=== PATIENT | female | born 1975 | race Caucasian/White ===

== ENCOUNTER 2021-02-02 14:22 | Emergency (ER) | payer MEDICARE, MEDICAID, SELFPAY ==
--- NOTE | ~2021-02-02 | CT_ITS ---
EXAMINATION: CT ABDOMEN AND PELVIS WITH CONTRAST CLINICAL INFORMATION: Abdominal pain COMPARISON: 02/12/2010 TECHNIQUE: Multidetector volumetric images were obtained from the superior aspect of the liver through the pubic symphysis following administration 85 mL of Omnipaque 350 intravenous contrast. Sagittal and coronal reformatted images were obtained on the technologist's workstation. Oral contrast: No This CT examination was performed using dose optimization techniques as appropriate, variously including the following: *Automated exposure control *Adjustment of mA and/or kV according to patient size (this includes techniques or standardized protocols for targeted exams where dose is matched to indication/reason for exam; i.e. extremities or head) *Use of iterative reconstruction technique DLP: 681 mGy-cm FINDINGS: LUNG BASES: The visualized lung bases are unremarkable. LIVER, GALLBLADDER, AND BILIARY TREE: Liver is decreased attenuation. Enlarged. This may be consistent with fatty change or hepatitis. Some likely focal fatty sparing around the lorie gallbladder region. The gallbladder is unremarkable with no evidence of radiopaque gallstones, gallbladder wall thickening, or obvious pericholecystic inflammatory changes. Some prominence of the common duct but this is also case previously. Mildly increased from previous. Mildly prominent pancreatic duct PANCREAS: Again mildly prominent pancreatic duct caliber. SPLEEN: Unremarkable. ADRENAL GLANDS: Unremarkable. KIDNEYS AND URETERS: The kidneys are normal in size, shape, and attenuation. No hydronephrosis, hydroureter, or calculi seen. No perinephric stranding. BLADDER: Unremarkable. GASTROINTESTINAL TRACT: The small and large bowel are unremarkable. The appendix is unremarkable. ABDOMINAL WALL: No significant hernia is appreciated. LYMPH NODES: Normal. VASCULAR: Unremarkable. PELVIC VISCERA: Unremarkable. OSSEOUS STRUCTURES: Unremarkable. CT/CT abdomen pelvis w con IMPRESSION: Enlarged low attenuation liver may be fatty change versus hepatitis. Some likely focal fatty sparing is noted in the portal and gallbladder region. The bowel pattern is nonobstructing. There is no free fluid. Once again some prominence of the common and pancreatic ducts are seen.
[2021-02-02 14:28] VITALS: BP 119/78; PULSE 96; RESP 18; TEMP 36.2; O2SAT 98; BMI 33.2
--- NOTE | 2021-02-02 16:35 | ED_ITS ---
HPI - Abdominal Pain General Chief Complaint: Abdominal Pain Stated Complaint: swollen abdomen Time Seen by Provider: 02/02/21 16:30 Source: patient Limitations: no limitations History of Present Illness HPI narrative: 45-year-old female with history of opiate abuse on methadone anxiety on 3 other medications for anxiety. Presents emergency department stating that her abdomen has been on and off distended for several years. She states she was admitted [place] several years ago for the abdominal distension she denies cough fever chest pain change any falls or injury states she has no belly pain at this time states this morning her abdomen is very distended and has since gone down. MD elicited complaint: abdominal pain Related Data Allergies Allergy/AdvReac Type Severity Reaction Status Date / Time sulfamethoxazole Allergy Severe HIVES Unverified 01/20/20 15:08 [From BACTRIM] trimethoprim [From BACTRIM] Allergy Severe HIVES Unverified 01/20/20 15:08 bee pollen [BEE STINGS] Allergy Unknown UNKNOWN Unverified 01/20/20 15:08 NSAIDS (Non-Steroidal Allergy Unknown BLEEDING Unverified 01/20/20 15:08 Anti-Inflamma ULCERS [NSAIDS (NON-STEROIDAL ANTI-INFLAMMA] Review of Systems Review of Systems Review of systems: General: Patient denies any fever chills recent illness or falls Musculoskeletal: Denies back pain or body aches or other injuries HEENT: denies headache, runny nose, ear pain Respiratory: denies shortness of breath, cough Cardiovascular: no chest pain or palpitations : denies dysuria, frequency Abdomen: no nausea vomiting denies abdominal pain Extremities: no swelling, no pain Skin: no diaphoresis Yes all other systems are reviewed and are negative Physical Exam Vital Signs: Vital Signs: Last Vital Signs Temp 98.1 F 02/02/21 19:10 Pulse 73 02/02/21 19:10 Resp 16 02/02/21 19:10 BP 115/76 02/02/21 19:10 Pulse Ox 96 02/02/21 19:10 Body Mass Index 33.2 General: Well-appearing well-nourished in no signs of distress HEENT: Normocephalic atraumatic Neck: No signs of JVD, no masses no tenderness or lymphadenopathy Cardiovascular: Regular rate and rhythm Respiratory: Clear to auscultation bilaterally Abdomen: Soft nontender no masses mild distension no signs of ascites Extremities: Normal pedal pulses no signs of edema Skin: Dry warm no rashes Back: No tenderness full ROM MDM - Abdominal Pain MDM Narrative Medical decision making narrative: 45-year-old female with history of anxiety presents complaining of abdominal distention for the past month her belly is nontender on exam but it is distended outpatient for CT scan to make sure there is no acute disease process she is in no pain at this time so I will give patient fluids will check CBC BMP LFTs and lipase and reassessed. Mild elevation in LFT's ast and alt and alk phos. Glucose also elevated patient denies having diabetes. Will need close follow up no signs of DKA at this time. 1940 patient will be sent home on metformin patient educated on lab results and need follow-up with GI will give her referral. Patient has no reason for admission CT scan appears stable Lab Data Result diagrams: 02/02/21 17:41 02/02/21 17:41 Labs: Lab Results 02/02/21 02/02/21 Range/Units 17:41 17:41 WBC 12.0 H (4.8-10.8) X10*3/uL RBC 5.04 (4.20-5.50) X10*6/uL Hgb 15.3 (12.0-16.0) g/dl Hct 45.1 (37-47) % MCV 89.5 (80-98) fL MCH 30.4 (27.0-33.0) pg MCHC 33.9 (31.0-35.0) g/dl RDW 13.3 (11.0-16.0) % Plt Count 332 (160-400) X10*3/uL MPV 9.7 (9.4-12.3) fL Immature Gran % (Auto) 0.5 H (0.0-0.4) % Neut % (Auto) 60.7 (45-73) % Lymph % (Auto) 31.4 (20-40) % [place] % (Auto) 4.3 (2-11) % Eos % (Auto) 2.7 (0-4) % Baso % (Auto) 0.4 (0-2) % Lymph # (Auto) 3.8 (1.2-4.9) X10*3/uL [place] # (Auto) 0.5 (0.1-1.2) X10*3/uL Eos # (Auto) 0.3 (0.0-0.4) X10*3/uL Baso # (Auto) 0.1 (0.0-0.2) X10*3/uL Abs Immat Gran (auto) 0.06 H (0.00-0.03) X10*3/uL Absolute Neuts (auto) 7.3 (2.0-8.3) X10*3/uL Absolute Nucleated RBC 0.000 (0.0-0.012) X10*3/uL Nucleated RBC % (auto) 0.0 (0.0-0.2) /100WBC Sodium 135 (135-145) mmol/L Potassium 4.3 (3.3-5.1) mmol/L Chloride 100 (96-108) mmol/L Carbon Dioxide 28 (22-29) mmol/L Anion Gap 11 L (12-20) BUN 9 (9-16) mg/dL Creatinine 0.67 (0.5-1.4) mg/dL Estim Creat Clear Calc 99.4 Estimated GFR > 60 Random Glucose 282 H (60-115) mg/dL Calcium 9.6 (8.4-10.2) mg/dL Total Bilirubin 0.3 (0.0-1.0) mg/dL Direct Bilirubin < 0.2 (0.0-0.5) mg/dL AST 77 H (5-31) U/L ALT 109 H (0-31) U/L Alkaline Phosphatase 187 H (39-117) U/L Total Protein 7.0 (6.5-8.0) g/dL Albumin 4.1 (3.5-5.0) g/dL Lipase 19 (8-78) U/L Discharge Plan Discharge Clinical Impression: Abdominal bloating Patient Disposition: Home, Self-Care Instructions: Gas and Bloating (ED) Additional Instructions: Please call follow with her doctor if you have any other concerns please do not hesitate to come back to emergency department. Referrals: Clarence Johnson [Physician] - 2 days (Please call the doctor if you have any other concerns please do not hesitate to come back to emergency department.) [facility] Social History Social History Advance Directives: No Advance Directives Information Provided: Yes
[2021-02-02 17:44] LABS: MANUAL DIFF FLAG NO
[2021-02-02 17:48] LABS: Basophils Absolute Auto 0.1 X10*3/uL (0.0-0.2); Basophils Percent Auto 0.4 % (0-2); Eosinophils Absolute Auto 0.3 X10*3/uL (0.0-0.4); Eosinophils Percent Auto 2.7 % (0-4); Hematocrit 45.1 % (37-47); Hemoglobin 15.3 g/dl (12.0-16.0); Imm Gran Abs Auto 0.06 X10*3/uL (0.00-0.03); Imm Gran Pct Auto 0.5 % (0.0-0.4); Lymphocytes Absolute Auto 3.8 X10*3/uL (1.2-4.9); Lymphocytes Percent Auto 31.4 % (20-40); Mean Corpuscular HGB Conc 33.9 g/dl (31.0-35.0); Mean Corpuscular Hemoglobin 30.4 pg (27.0-33.0); Mean Corpuscular Volume 89.5 fL (80-98); Mean Platelet Volume 9.7 fL (9.4-12.3); Monocytes Absolute Auto 0.5 X10*3/uL (0.1-1.2); Monocytes Percent Auto 4.3 % (2-11); Neutrophils Absolute Auto 7.3 X10*3/uL (2.0-8.3); Neutrophils Percent Auto 60.7 % (45-73); Platelet Count 332 X10*3/uL (160-400); Red Blood Count 5.04 X10*6/uL (4.20-5.50); Red Cell Distribution Width 13.3 % (11.0-16.0)
[2021-02-02 18:05] LABS: Alanine Aminotransferase 109 U/L (0-31); Albumin Level 4.1 g/dL (3.5-5.0); Alkaline Phosphatase 187 U/L (39-117); Anion Gap 11 (12-20); Aspartate Amino Transferase 77 U/L (5-31); Bilirubin Direct < 0.2 mg/dL (0.0-0.5); Bilirubin Total 0.3 mg/dL (0.0-1.0); Blood Urea Nitrogen 9 mg/dL (9-16); Calcium 9.6 mg/dL (8.4-10.2); Carbon Dioxide 28 mmol/L (22-29); Chloride 100 mmol/L (96-108); Creatinine Clr Calc Pharmacy 99.4; Estimated Glomerular Filt Rate > 60; Glucose Random 282 mg/dL (60-115); Lipase 19 U/L (8-78); Potassium 4.3 mmol/L (3.3-5.1); Sodium 135 mmol/L (135-145)
[2021-02-02] MEDS: 0.9 % Sodium Chloride 500 ML 999 ML IV (18:24)
[2021-02-02] MEDS: iohexoL 350 MG/ML 100 ML INFUS..BTL IV (18:46)
[2021-02-02 19:10] VITALS: BP 115/76; PULSE 73; RESP 16; TEMP 36.7; O2SAT 96
== END 2021-02-02 20:14 | disposition home or self-care (01) ==
PROVIDERS: Emergency Provider Student in an Organized Health Care Education/Training Program
DX: R19.00 Intra-abdominal and pelvic swelling, mass and lump, unspecified site (principal); R10.9 Unspecified abdominal pain; F11.10 Opioid abuse, uncomplicated; Z79.899 Other long term (current) drug therapy
CPT/HCPCS: 36415; 74177; 80048; 80076; 83690; 85025; 99283; 99284; Q9967

== ENCOUNTER 2021-07-16 16:09 | Outpatient (REF) | payer MEDICARE, MEDICAID, SELFPAY ==
--- NOTE | ~2021-07-16 | XR_ITS ---
EXAMINATION: XR SINUSES CLINICAL INFORMATION: Chronic sinusitis COMPARISON: None TECHNIQUE: 3 views of the sinuses were obtained. FINDINGS: Paranasal sinuses appear clear without air-fluid levels. No fractures are identified. No radiodense foreign bodies. XR/XR sinus min 3V IMPRESSION: Unremarkable examination.
== END 2021-07-16 16:10 | disposition home or self-care (01) ==
LOC: HO.XRAY 16:09
PROVIDERS: PCP Internal Medicine; Visit Provider Internal Medicine
DX: J32.9 Chronic sinusitis, unspecified (principal)
CPT/HCPCS: 70220

== ENCOUNTER 2023-06-24 14:08 | Emergency (ER) | payer OTHER, SELFPAY ==
[2023-06-24] VITALS (7 sets, daily range): BP systolic 91–141; BP diastolic 46–112; PULSE 72–105; RESP 16–18; TEMP 36.6–36.7; O2SAT 94–103; BMI 27.4
--- NOTE | ~2023-06-24 | CT_ITS ---
EXAMINATION: CT HEAD WITHOUT CONTRAST CLINICAL INFORMATION: Seizure. Headache. COMPARISON: None available. TECHNIQUE: Contiguous axial imaging was performed from the skull base to vertex without intravenous administration of contrast. This CT examination was performed using dose optimization techniques as appropriate, variously including the following: *Automated exposure control. *Adjustment of mA and/or kV according to patient size (this includes techniques or standardized protocols for targeted exams where dose is matched to indication/reason for exam; i.e. extremities or head). *Use of iterative reconstruction technique. DLP: 625 mGy-cm FINDINGS: There is no evidence of acute intracranial hemorrhage or edematous territorial infarction. Sanches-white matter differentiation is preserved. There is no abnormal attenuation within the brain parenchyma. The ventricles are normal in morphology and size. No evidence for obstructive hydrocephalus. The suprasellar cistern remains widely patent. The cerebellar tonsils are normally positioned. No abnormal mass effect or midline shift. No extra-axial fluid collections. No acute soft tissue or osseous abnormalities. Mild mucosal thickening of the paranasal sinuses. The mastoid air cells and middle ear cavities are clear. CT/CT head/brain wo IV con IMPRESSION: No evidence of acute intracranial hemorrhage or edematous territorial infarction. No demonstrated abnormal mass effect on the noncontrast evaluation.
--- NOTE | 2023-06-24 14:28 | ECG_ITS ---
Test Reason : TREMORS Blood Pressure : / mmHG Vent. Rate : 082 BPM Atrial Rate : 082 BPM P-R Int : 156 ms QRS Dur : 092 ms QT Int : 370 ms P-R-T Axes : 043 -38 030 degrees QTc Int : 432 ms Normal sinus rhythm Left axis deviation Septal infarct (cited on or before 08-JAN-2019) Abnormal ECG When compared with ECG of 08-JAN-2019 11:56, No significant change was found Referred By: Elzbieta Everett Electronically Signed By:DAWIT WILSON MD
--- NOTE | 2023-06-24 14:52 | PC.NURSE ---
pt presents to ED via EMS from court room. per pt she had seizure-like activity at court room, remembers all events, describes as shaking all over but no LOC. pt reports this episode lasted 1-2 mins, pt has hx of these episodes with no formal diagnosis or meds. pt is diabetic, was given sugar-y drink because they thought her sugar was low. pt is alert and oriented, breathing even and unlabored, skin WNL. pt denies pain or SOB. pt reports feeling flu-like symptoms X2 days, cough and general malaise. pt resting in bed, vss. provider at bedside at this time.
[2023-06-24 15:07] LABS: Glucose, Whole Blood 364 mg/dL (60-115)
--- NOTE | 2023-06-24 15:12 | ED.GENADULT ---
HPI - General Adult General Chief complaint: General Medical Stated complaint: HAD TREMOR IN COURT/?SZ,HIGH BS 453 PER EMS Time Seen by Provider: 06/24/23 14:27 Source: patient and RN notes reviewed Mode of arrival: ambulatory Limitations: no limitations History of Present Illness HPI narrative: This is a 48-year-old female, with a history of uncontrolled diabetes on insulin, presenting to the emergency department for evaluation of episode of ? Tremors while in a court room this afternoon. Patient reports that she is under a significant amount of stress now that she is currently dealing with a lawsuit. She states that while awaiting for the case to begin, she suddenly felt shaking in her upper and lower extremities as well as head. She states that this lasted for approximately 1 minute. She states that she was fully conscious during this episode. She denies hitting her head or loss of consciousness. She states that she has had a history of undiagnosed seizures, however states that she typically loses consciousness which she reports she did not lose consciousness today. She also admits that her diabetes has not been well controlled despite being on insulin, she has an appointment with her primary care physician in several days to adjust medications and discuss further workup. She denies any alcohol use or drug use. She is a smoker. She currently feels okay, reports some slight lightheadedness and headache, otherwise denies any chest pain, shortness of breath, abdominal pain, nausea, vomiting or diarrhea. No other complaints or concerns at this time. MD complaint: seizure like activity Onset (ago): hour(s) Radiation: non-radiation Relieving factors: none Exacerbating factors: none Associated symptoms: denies other symptoms Treatments prior to arrival: none Related Data Allergies Allergy/AdvReac Type Severity Reaction Status Date / Time sulfamethoxazole Allergy Severe HIVES Verified 06/24/23 16:05 [From BACTRIM] trimethoprim [From BACTRIM] Allergy Severe HIVES Verified 06/24/23 16:05 bee pollen [BEE STINGS] Allergy Unknown UNKNOWN Verified 06/24/23 16:05 NSAIDS (Non-Steroidal Allergy Unknown BLEEDING Verified 06/24/23 16:05 Anti-Inflamma ULCERS [NSAIDS (NON-STEROIDAL ANTI-INFLAMMA] Review of Systems Review of Systems: Yes all other systems are reviewed and are negative Constitutional: Constitutional: Reports as per HPI [facility] Social History Social History Smoked in Last 30 Days: Yes Use of substances other than those prescribed or required for medical reasons: No Advance Directives: No Advance Directives Information Provided: No Physical Exam ED Vital Signs: Vital Signs - 24 hr 06/24/23 14:43 06/24/23 14:48 06/24/23 15:58 Temperature 98.1 F 98.1 F 97.8 F Pulse Rate 105 H 104 H 81 Respiratory Rate 18 18 16 Blood Pressure 128/87 128/87 97/66 Pulse Oximetry 95 95 94 Oxygen Delivery Method Room Air Room Air Room Air 06/24/23 16:01 06/24/23 16:03 06/24/23 16:03 Temperature Pulse Rate 72 84 91 Respiratory Rate Blood Pressure 106/66 105/57 L 112/72 Pulse Oximetry Oxygen Delivery Method 06/24/23 18:30 06/24/23 19:38 Temperature Pulse Rate 76 92 Respiratory Rate 16 17 Blood Pressure 91/46 L 114/77 Pulse Oximetry 94 94 Oxygen Delivery Method Room Air Room Air BMI result Body Mass Index 27.4 Const General: cooperative, comfortable and no acute distress Orientation/consciousness: patient oriented x3 Limitations: no limitations HENMT Head: Yes normal to inspection, Yes normocephalic and Yes atraumatic Ears: hearing grossly normal bilaterally General nose exam: Normal external nose present Face and sinus: Yes normal facial exam Mouth: Normal oral and palatal mucosa present, oropharynx normal and moist mucous membranes Throat: Yes posterior oropharynx normal Eyes General: appearance normal, both eyes and all related structures Eyelids: Yes eyelids normal Conjunctivae: conjunctivae normal Sclerae: sclerae normal Pupils: Equal, round and reactive pupils present EOM: EOMs intact bilaterally Neck Neck: Yes normal visual inspection, Yes full ROM and Yes no lymphadenopathy Lymphatic: no lymphadenopathy noted Chest Chest palpation & inspection: normal inspection of the chest Resp Effort & Inspection: normal respiratory effort and able to speak in complete sentences Auscultation: clear to auscultation bilaterally, no crackles, no rales, no rhonchi and no wheezes Cardio Rate: regular rate Rhythm: regular rhythm Heart sounds: S1 normal heart sound present and S2 normal heart sound present GI Inspection: Yes normal to inspection Skin General skin exam: no rashes or lesions noted Trauma: no lacerations or abrasions Wounds: no wounds Neuro General: patient oriented x3 and moves all extremities Cranial nerves: Yes CN's II-XII intact bilaterally and Yes Equal, round and reactive pupils present Cognition (Neuro): normal cognition Motor exam (neuro): 5/5 motor strength present throughout and Pronator motor function not present Romberg Test: Negative Extrem General: Yes normal to inspection Right upper extremity: normal to inspection Left upper extremity: normal to inspection Right lower extremity: normal to inspection Left lower extremity: normal to inspection Course Reevaluation(s) Reevaluation #1: No leukocytosis, platelet count 20, glucose hyperglycemic at [id number], she has received IV fluids. Slight elevation in alk-phos, troponin less than 0.7,, she had no chest pain, therefore repeat not indicated. . Negative . Urine areas not infected and she is asymptomatic therefore will not treat for urinary tract infection. She did positive for opiates, fentanyl, amphetamines, ankle pain,, negative for flu RSV and COVID. EKG normal sinus rhythm at a ventricular rate of 82 beats per minute,, QTC 432, similar from previous. Time: 17:51 Reevaluation #2: Patient feeling much better better. Given sign-out my colleague, Rob Mills, IFRAH pending CT head, POC glucose, repeat trop. Time: 18:04 Reevaluation #3: Delta troponin is negative. After IV fluids remained hyperglycemic, received insulin lispro 10 units subcutaneous and repeat glucose 247. CT head without acute intracranial pathology. At this time stable for discharge, outpatient follow-up with PCP. CT/CT head/brain wo IV con IMPRESSION: No evidence of acute intracranial hemorrhage or edematous territorial infarction. No demonstrated abnormal mass effect on the noncontrast evaluation. Medications Administered Discontinued Medications Generic Name Dose Route Start Last Admin Trade Name Freq PRN Reason Stop Dose Admin Sodium Chloride 1,000 mls @ 999 mls/hr 06/24/23 16:38 06/24/23 18:29 Ns IV 06/24/23 17:38 Infused .Q1H1M ONE Infusion Insulin Human Lispro 10 unit 06/24/23 19:58 06/24/23 20:30 Insulin Lispro 100 Unit/Ml 3 Ml Vial SUBCUT 06/24/23 19:59 10 unit ONCE ONE Administration Medical Decision Making Medical Decision Making MDM Narrative: This is a 48-year-old female, with a past medical history of uncontrolled diabetes, presenting to the emergency department for evaluation of ?seizure-like activity. Patient reports that while she was in court today she felt tremulous and increased anxiety which lasted for about 1 minute. She denies loss of consciousness. On arrival, patient is neurologically intact. She reports slight headache and slight dizziness, however is feeling much better since her arrival. Point of care 364 which patient states is low for her. She states that she has not had a easy time managing her diabetes, she is seeing her primary care physician in 2 days. She denies any chest pain, shortness of breath, abdominal pain, nausea, vomiting or diarrhea. Plan: Labs, EKG, orthostatic vital signs, CT head Differential Diagnosis Differential Diagnoses: The differential diagnosis associated with the presentation includes ICH, intracranial mass, seizure, electrolyte abnormality, anxiety Admission/Observation Consideration of admission/observation: Escalation of care including admission/observation considered Lab Data MDM Lab Attestation statement: I reviewed the patient's lab results. 06/24/23 15:48 06/24/23 15:48 Labs: Lab Results 06/24/23 06/24/23 06/24/23 Range/Units 14:58 15:48 18:39 WBC 11.6 H (4.8-10.8) X10*3/uL RBC 4.73 (4.20-5.50) X10*6/uL Hgb 14.3 (12.0-16.0) g/dl Hct 41.7 (37.0-47.0) % MCV 88.2 (80.0-98.0) fL MCH 30.2 (27.0-33.0) pg MCHC 34.3 (31.0-35.0) g/dl RDW 12.5 (11.0-16.0) % Plt Count 420 H (160-400) X10*3/uL MPV 9.5 (9.4-12.3) fL Immature Gran % (Auto) 0.3 (0.0-0.4) % Neut % (Auto) 53.8 (45-73) % Lymph % (Auto) 38.1 (20-40) % [place] % (Auto) 5.5 (2-11) % Eos % (Auto) 1.9 (0-4) % Baso % (Auto) 0.4 (0-2) % Lymph # (Auto) 4.4 (1.2-4.9) X10*3/uL [place] # (Auto) 0.6 (0.1-1.2) X10*3/uL Eos # (Auto) 0.2 (0.0-0.4) X10*3/uL Baso # (Auto) 0.1 (0.0-0.2) X10*3/uL Abs Immat Gran (auto) 0.03 (0.00-0.03) X10*3/uL Absolute Neuts (auto) 6.2 (2.0-8.3) x10*3/uL Absolute Nucleated RBC 0.000 (0.0-0.012) X10*3/uL Nucleated RBC % (auto) 0.0 (0.0-0.2) /100WBC Smear Tech's Comments VERIFIED Sodium 135 (135-145) mmol/L Potassium 4.2 (3.3-5.1) mmol/L Chloride 99 (96-108) mmol/L Carbon Dioxide 28 (22-29) mmol/L Anion Gap 12 (12-20) BUN 14 (9-16) mg/dL Creatinine 0.71 (0.5-1.4) mg/dL Estim Creat Clear Calc 96.6 Estimated GFR > 60 POC Glucose 364 H* (60-115) mg/dL Random Glucose 371 H* (60-115) mg/dL Lactic Acid 1.4 (0.5-2.0) mmol/L Calcium 8.9 D (8.4-10.2) mg/dL Magnesium 1.9 (1.6-2.6) mg/dL Total Bilirubin 0.2 (0.0-1.0) mg/dL Direct Bilirubin < 0.2 (0.0-0.5) mg/dL AST 15 (5-31) U/L ALT 30 (0-31) U/L Alkaline Phosphatase 118 H (39-117) U/L Troponin I High Sens < 2.7 < 2.7 (<3.5-17.0) ng/L Total Protein 6.9 (6.5-8.0) g/dL Albumin 3.9 (3.5-5.0) g/dL Lipase 10 (8-78) U/L Beta HCG, Quant < 2 mIU/mL Urine Color Yellow Urine Appearance Clear Urine pH 5.5 (5.0-9.0) Ur Specific [place] >= 1.030 H (1.005-1.025) Urine Protein Negative (Neg-Trace) mg/dL Urine Glucose (UA) >=1000 H (Negative) mg/dL Urine Ketones Negative (Negative) mg/dL Urine Blood Moderate (2+) H (Negative) Urine Nitrite Negative (Negative) Ur Leukocyte Esterase Negative (Negative) Urine RBC 0-2 (0-2) /HPF Urine WBC 0-5 (0-5) /HPF Ur Squamous Epith Cells 3-5 (0-2) /HPF Urine Bacteria Trace (None Seen) Hyaline Casts 0-2 (0-2) /LPF Urine Opiates Screen POSITIVE H (Not Detect) Urine Fentanyl Screen POSITIVE H (Not Detect) Ur Barbiturates Screen Not Detected (Not Detect) Ur Phencyclidine Scrn Not Detected (Not Detect) Ur Amphetamines Screen POSITIVE H (Not Detect) U Benzodiazepines Scrn Not Detected (Not Detect) Urine Cocaine Screen POSITIVE H (Not Detect) U Marijuana (THC) Screen Not Detected (Not Detect) Ethyl Alcohol < 10 mg/dL Influenza Type A (PCR) NEGATIVE (Negative) Influenza Type B (PCR) NEGATIVE (Negative) RSV RNA Qual (PCR) NEGATIVE (Negative) SARS-CoV-2 RNA (RT-PCR) NEGATIVE (Negative) 06/24/23 06/24/23 Range/Units 19:33 21:51 WBC (4.8-10.8) X10*3/uL RBC (4.20-5.50) X10*6/uL Hgb (12.0-16.0) g/dl Hct (37.0-47.0) % MCV (80.0-98.0) fL MCH (27.0-33.0) pg MCHC (31.0-35.0) g/dl RDW (11.0-16.0) % Plt Count (160-400) X10*3/uL MPV (9.4-12.3) fL Immature Gran % (Auto) (0.0-0.4) % Neut % (Auto) (45-73) % Lymph % (Auto) (20-40) % [place] % (Auto) (2-11) % Eos % (Auto) (0-4) % Baso % (Auto) (0-2) % Lymph # (Auto) (1.2-4.9) X10*3/uL [place] # (Auto) (0.1-1.2) X10*3/uL Eos # (Auto) (0.0-0.4) X10*3/uL Baso # (Auto) (0.0-0.2) X10*3/uL Abs Immat Gran (auto) (0.00-0.03) X10*3/uL Absolute Neuts (auto) (2.0-8.3) x10*3/uL Absolute Nucleated RBC (0.0-0.012) X10*3/uL Nucleated RBC % (auto) (0.0-0.2) /100WBC Smear Tech's Comments Sodium (135-145) mmol/L Potassium (3.3-5.1) mmol/L Chloride (96-108) mmol/L Carbon Dioxide (22-29) mmol/L Anion Gap (12-20) BUN (9-16) mg/dL Creatinine (0.5-1.4) mg/dL Estim Creat Clear Calc Estimated GFR POC Glucose 364 H* 257 H (60-115) mg/dL Random Glucose (60-115) mg/dL Lactic Acid (0.5-2.0) mmol/L Calcium (8.4-10.2) mg/dL Magnesium (1.6-2.6) mg/dL Total Bilirubin (0.0-1.0) mg/dL Direct Bilirubin (0.0-0.5) mg/dL AST (5-31) U/L ALT (0-31) U/L Alkaline Phosphatase (39-117) U/L Troponin I High Sens (<3.5-17.0) ng/L Total Protein (6.5-8.0) g/dL Albumin (3.5-5.0) g/dL Lipase (8-78) U/L Beta HCG, Quant mIU/mL Urine Color Urine Appearance Urine pH (5.0-9.0) Ur Specific [place] (1.005-1.025) Urine Protein (Neg-Trace) mg/dL Urine Glucose (UA) (Negative) mg/dL Urine Ketones (Negative) mg/dL Urine Blood (Negative) Urine Nitrite (Negative) Ur Leukocyte Esterase (Negative) Urine RBC (0-2) /HPF Urine WBC (0-5) /HPF Ur Squamous Epith Cells (0-2) /HPF Urine Bacteria (None Seen) Hyaline Casts (0-2) /LPF Urine Opiates Screen (Not Detect) Urine Fentanyl Screen (Not Detect) Ur Barbiturates Screen (Not Detect) Ur Phencyclidine Scrn (Not Detect) Ur Amphetamines Screen (Not Detect) U Benzodiazepines Scrn (Not Detect) Urine Cocaine Screen (Not Detect) U Marijuana (THC) Screen (Not Detect) Ethyl Alcohol mg/dL Influenza Type A (PCR) (Negative) Influenza Type B (PCR) (Negative) RSV RNA Qual (PCR) (Negative) SARS-CoV-2 RNA (RT-PCR) (Negative) Radiology Impression Discussion of test interpretation with radiology: I have reviewed the radiologist's reading. External Record Review External record reviewed: Inpatient record, Office record, Outpatient record, Prior outpatient labs, Prior outpatient radiology, Primary care record and Outside ED record Discharge Plan Discharge Clinical Impression: Anxiety Patient Disposition: Still a Patient Instructions: Panic Disorder (ED), Anxiety (ED) Additional Instructions: You were seen in the emergency department after having an episode of shaking. Your symptoms are likely due to to anxiety. Your labs are reassuring. You have elevated glucose, therefore follow-up with your primary care physician for further management diabetes. Your CT scan of her head was normal. Urine does not infected. Drink plenty of fluids get plenty of rest. If any new or worsening symptoms occur, including chest pain, shortness of breath, please return for re-evaluation.
[2023-06-24 16:04] LABS: Appearance Urine Clear; Color Urine Yellow; Glucose Urine UA >=1000 mg/dL (Negative); Leukocyte Esterase Urine Negative (Negative); Nitrite Urine Negative (Negative); PH 5.5 (5.0-9.0); Specific Gravity - Urine >= 1.030 (1.005-1.025); UMIC TRIGGER UACC YES; Urine Blood Moderate (2+) (Negative); Urine Ketones Negative (Negative); Urine Protein Negative (Neg-Trace)
[2023-06-24 16:09] LABS: Basophils Absolute Auto 0.1 X10*3/uL (0.0-0.2); Basophils Percent Auto 0.4 % (0-2); Eosinophils Absolute Auto 0.2 X10*3/uL (0.0-0.4); Eosinophils Percent Auto 1.9 % (0-4); Hematocrit 41.7 % (37.0-47.0); Hemoglobin 14.3 g/dl (12.0-16.0); Imm Gran Abs Auto 0.03 X10*3/uL (0.00-0.03); Imm Gran Pct Auto 0.3 % (0.0-0.4); Lymphocytes Absolute Auto 4.4 X10*3/uL (1.2-4.9); Lymphocytes Percent Auto 38.1 % (20-40); MANUAL DIFF FLAG SCAN; Mean Corpuscular HGB Conc 34.3 g/dl (31.0-35.0); Mean Corpuscular Hemoglobin 30.2 pg (27.0-33.0); Mean Corpuscular Volume 88.2 fL (80.0-98.0); Mean Platelet Volume 9.5 fL (9.4-12.3); Monocytes Absolute Auto 0.6 X10*3/uL (0.1-1.2); Monocytes Percent Auto 5.5 % (2-11); Neutrophils Absolute Auto 6.2 x10*3/uL (2.0-8.3); Neutrophils Percent Auto 53.8 % (45-73); Platelet Count 420 X10*3/uL (160-400); Red Blood Count 4.73 X10*6/uL (4.20-5.50); Red Cell Distribution Width 12.5 % (11.0-16.0); SCAN SMEAR FLAG 1; White Blood Count 11.6 X10*3/uL (4.8-10.8)
[2023-06-24 16:12] LABS: Bacteria Urine Trace (None Seen); Hyaline Casts Urine 0-2 /LPF (0-2); RBC Urine 0-2 /HPF (0-2); WBC Urine 0-5 /HPF (0-5)
[2023-06-24 16:17] LABS: Lactic Acid 1.4 mmol/L (0.5-2.0)
[2023-06-24 16:21] LABS: Ethanol < 10 mg/dL
[2023-06-24 16:23] LABS: Amphetamine Screen Urine POSITIVE (Not Detect); Barbiturates, Urine Not Detected (Not Detect); Benzodiazepines Screen Urine Not Detected (Not Detect); Cannabinoid Screen Urine Not Detected (Not Detect); Cocaine Screen Urine POSITIVE (Not Detect); Fentanyl, urine POSITIVE (Not Detect); Opiate Screen Urine POSITIVE (Not Detect); Phencyclidine Screen Urine Not Detected (Not Detect)
[2023-06-24 16:32] LABS: Troponin-I High Sensitivity < 2.7 ng/L (<3.5-17.0)
[2023-06-24 16:33] LABS: SLIDE REVIEW VERIFIED
[2023-06-24 16:45] LABS: Influenza A PCR NEGATIVE (Negative); Influenza B PCR NEGATIVE (Negative); Resp Syncy Virus RNA Qual PCR NEGATIVE (Negative); SARS COV2 PCR INHOUSE NEGATIVE (Negative)
[2023-06-24] MEDS: 0.9 % Sodium Chloride 1,000 ML 999 ML IV (16:48)
[2023-06-24 16:51] LABS: Alanine Aminotransferase 30 U/L (0-31); Albumin Level 3.9 g/dL (3.5-5.0); Alkaline Phosphatase 118 U/L (39-117); Anion Gap 12 (12-20); Aspartate Amino Transferase 15 U/L (5-31); Bilirubin Direct < 0.2 mg/dL (0.0-0.5); Bilirubin Total 0.2 mg/dL (0.0-1.0); Blood Urea Nitrogen 14 mg/dL (9-16); Calcium 8.9 mg/dL (8.4-10.2); Carbon Dioxide 28 mmol/L (22-29); Chloride 99 mmol/L (96-108); Creatinine Clr Calc Pharmacy 96.6; Estimated Glomerular Filt Rate > 60; Glucose Random 371 mg/dL (60-115); HCG Quantitative < 2 mIU/mL; Lipase 10 U/L (8-78); Magnesium 1.9 mg/dL (1.6-2.6); Potassium 4.2 mmol/L (3.3-5.1); Sodium 135 mmol/L (135-145); Total Protein 6.9 g/dL (6.5-8.0)
[2023-06-24 19:08] LABS: Troponin-I High Sensitivity < 2.7 ng/L (<3.5-17.0)
[2023-06-24 19:49] LABS: Glucose, Whole Blood 364 mg/dL (60-115)
--- NOTE | 2023-06-24 20:20 | PC.NURSE ---
please call Hilary Horan [facility]- [phone] with any updates.
[2023-06-24] MEDS: Insulin Lispro 100 UNIT/ML 3 ML VIAL 10 UNIT SUBCUT (20:30)
[2023-06-24 21:56] LABS: Glucose, Whole Blood 257 mg/dL (60-115)
--- NOTE | 2023-06-24 22:54 | PC.NURSE ---
this RN went to discharge patient and she was found not to be in the room. per registration pt had left upset about not having a ride. when asked when she left they stated approx 5min ago. pt still had IV line in her arm. this RN notified charger. states she will notify the [place] PD to locate patient.
--- NOTE | 2023-06-24 22:58 | PC.NURSE ---
attempted to call patient; no answer on the phone, unable to leave VM as it is not set up.
--- NOTE | 2023-06-24 23:03 | PC.NURSE ---
meredith pd aware that patient may have left with IV still in and will go to home for a well check .
[2023-06-25 06:32] LABS: Glucose, Whole Blood 360 mg/dL (60-115)
== END 2023-06-24 23:28 | disposition home or self-care (01) ==
PROVIDERS: Physician Assistant Medical; Emergency Provider Emergency Medicine
DX: R56.9 Unspecified convulsions (principal); F41.1 Generalized anxiety disorder; R51.9 Headache, unspecified; R25.1 Tremor, unspecified; R94.31 Abnormal electrocardiogram [ECG] [EKG]; F17.200 Nicotine dependence, unspecified, uncomplicated; Z20.822 Contact with and (suspected) exposure to COVID-19; Z11.52 Encounter for screening for COVID-19; Z79.899 Other long term (current) drug therapy
CPT/HCPCS: 0241U; 36415; 70450; 80048; 80076; 80307; 81001; 81003; 82947; 83605; 83690; 83735; 84484; 84702; 85025; 93005; 96360; 96361; 99284; 99285

== ENCOUNTER → 2023-06-24 14:28 | Outpatient (BNV) | payer OTHER, SELFPAY | PROVIDERS: Emergency Provider Emergency Medicine; Visit Provider Internal Medicine Cardiovascular Disease | DX: R94.31 Abnormal electrocardiogram [ECG] [EKG] (principal) | CPT/HCPCS: 93010 ==

== ENCOUNTER 2024-09-03 15:23 | Emergency (ER) | payer OTHER, SELFPAY ==
[2024-09-03 15:33] VITALS: BP 148/89; PULSE 129; RESP 20; TEMP 37.2; O2SAT 98; BMI 21.7
--- NOTE | 2024-09-03 15:36 | ED_ITS ---
HPI - General Adult General Chief complaint: Skin/Abscess/Foreign Body Stated complaint: cyst on back Time Seen by Provider: 09/03/24 19:19 Source: patient Mode of arrival: ambulatory Limitations: no limitations History of Present Illness ED Provider: Dr. Rula Thompson HPI narrative: Patient comes to the emergency room complaining of an abscess in her upper back. Patient denies fever chills. Patient complaining of drainage from the abscess. Denies any injuries, denies IV drug use. Patient states that she was diagnosed with type 2 diabetes 1 year ago and she has not been taking any of her medications. Patient states that she does not have a primary care physician. Related Data Previous Rx's ?Medication ?Instructions ?Recorded blood sugar diagnostic (Accu-Chek #100 ea 09/03/24 Shwetha Plus test strips) blood-glucose meter (Accu-Chek #1 ea 09/03/24 Guide Glucose Meter) cephalexin 500 mg capsule 500 mg PO Q12H #14 caps 09/03/24 doxycycline hyclate 100 mg capsule 100 mg PO BID #14 caps 09/03/24 insulin lispro 100 unit/mL 1 sliding scale dose subcut 09/03/24 subcutaneous pen (Humalog KwikPen USEASDIRECTD #15 mL (U-100) Insulin) lancets-blood glucose test #1 ea 09/03/24 strips-pen needles with gauze kit pen needle, diabetic 32 gauge x #100 ea 09/03/2432 (Pen Needle) tramadol 50 mg tablet 50 mg PO BID PRN pain #7 tabs 09/03/24 Allergies Allergy/AdvReac Type Severity Reaction Status Date / Time sulfamethoxazole Allergy Severe HIVES Verified 09/03/24 15:37 [From BACTRIM] trimethoprim [From BACTRIM] Allergy Severe HIVES Verified 09/03/24 15:37 bee pollen [BEE STINGS] Allergy Unknown UNKNOWN Verified 09/03/24 15:37 NSAIDS (Non-Steroidal Allergy Unknown BLEEDING Verified 09/03/24 15:37 Anti-Inflamma ULCERS [NSAIDS (NON-STEROIDAL ANTI-INFLAMMA] Review of Systems 2 Review of Systems: Constitutional : No Weight loss, No Fever, No Chills, No Night Sweats, No Fatigue, No Malaise ENT/Mouth : No Hearing loss, No Ear Pain, No Nasal Congestion, No Sinus Pain, No Hoarseness, No sore throat, No Rhinorrhea, No Swallowing Difficulty Eyes: No Eye Pain, No Swelling, No Redness, No Foreign Body, No Discharge, No Vision Changes Cardiovascular : No Chest Pain, No SOB, No Dyspnea on Exertion, No Orthopnea, No Edema, No Palpitations Respiratory : No Cough, No Sputum, No Wheezing, No Smoke Exposure, No Dyspnea Gastrointestinal : No Nausea, No Vomiting, No Diarrhea, No Constipation, No abdominal Pain, No Hematochezia, No Melena Genitourinary : no irregular bleeding, No Dysuria, No Urinary Frequency, No Hematuria, No Urinary Incontinence, No Urgency, No Flank Pain, No Urinary Flow Changes, No Hesitancy Musculoskeletal : No joint pain, No Myalgias, No Joint Swelling Skin : Complaining of an abscess in the upper back Neuro : No Weakness, No Numbness, No Paresthesias, No Loss of Consciousness, No Dizziness, No Headache Psych : No Anxiety/Panic, No Depression, No SI/HI/AH/VH, No Social Issues, Heme/Lymph: No Bruising, No Bleeding,No Lymphadenopathy Endocrine : Complaining of polyuria polydipsia and has not medications for diabetes. [facility] Past Medical History Medical History (Updated 09/03/24 @ 22:36 by Rula Thompson MD) Diabetes Type 2 diabetes mellitus Social History Social History Advance Directives: No Advance Directives Information Provided: Yes Do you have a plan to hurt others: No Plan Physical Exam ED Vital Signs: Vital Signs - 24 hr 09/03/24 15:33 09/03/24 19:55 09/03/24 20:01 Temperature 99 F 98.0 F Pulse Rate 129 H 115 H Respiratory Rate 20 20 20 Blood Pressure 148/89 H 140/99 H Pulse Oximetry 98 99 Oxygen Delivery Method Room Air Room Air 09/03/24 22:03 Temperature 98.4 F Pulse Rate 102 H Respiratory Rate 20 Blood Pressure 147/98 H Pulse Oximetry 98 Oxygen Delivery Method Room Air BMI result Body Mass Index 21.7 Const Other: Appearance: Alert. Oriented X3. No acute distress. Eyes: Pupils equal, round and reactive to light. ENT: Pharynx normal. Neck: Normal inspection. Neck supple. No lymph nodes noted. No crepitus CVS: Normal heart rate and rhythm. Pulses normal. Normal S1 and S2 Respiratory: No respiratory distress. Breath sounds normal. No Wheezing. No rales Abdomen: Soft and nontender. No rigidity. No distention. Skin: Skin warm and dry. Normal skin color. Normal skin turgor. In the upper back, in the middle of the scapulas, there is an abscess, which is open and it is starting to drain. Extremities: No lower extremity edema. No Lacerations. No Rash Neuro: Oriented X 3. No motor deficit. No sensory deficit. Moving all extremities. No slurred speech. CN 2 through 12 grossly intact Psych: calm, cooperative, normal affect Course Course Course Narrative: This is an RME performed by Yakelin Mills, [employer]: Additional HPI, ROS, PE not included below will be deferred to primary provider. Patient is a 49-year-old female who presents emergency department for evaluation of an abscess mid upper back with onset 4 days ago. Started with an itchy area, ultimately has now begun bleeding with pus-like drainage. Endorsing subjective fevers and chills. She has a history of diabetes, has not been on any medications for this in approximately 1 year. She arrives tachycardic pulse in the 130s, she does appear anxious, she is afebrile. Plan: Serum labs, blood cultures and lactic, POC glucose, wound culture. EKG Medications Administered Discontinued Medications Generic Name Dose Route Start Last Admin Trade Name Michaelq PRN Reason Stop Dose Admin Sodium Chloride 1,000 mls @ 999 mls/hr 09/03/24 19:36 09/03/24 21:05 Ns IVCONT 09/03/24 20:36 Infused .Q1H1M ONE Infusion Insulin Human Regular 10 unit 09/03/24 19:36 09/03/24 19:56 Insulin Regular, Human 100 Unit/Ml 10 Ml Vial IVPUSH 09/03/24 19:37 10 unit ONCE ONE Administration Lidocaine HCl 20 ml 09/03/24 19:41 09/03/24 19:56 Lidocaine Hcl 1 % 20 Ml Vial INFILTRATI 09/03/24 19:42 20 ml ONCE ONE Administration Morphine Sulfate 2 mg 09/03/24 19:39 09/03/24 19:55 Morphine Sulfate 2 Mg/Ml Cartridge IVPUSH 09/03/24 19:40 2 mg ONCE ONE Administration Protocol Procedures Abscess I/D Site: back Sedation/analgesia: none Local Anesthetic: lidocaine 1% Amount of anesthesia used (mL): 10 Technique: incised with blade Amount of fluid expressed (mL): 25 Sent for culture/gram staining?: No Irrigation: Yes Packing used?: none Medical Decision Making Medical Decision Making [facility] Narrative: Patient's skin was numbed with 1% lidocaine without epinephrine. An 11 size blade was used to open the skin and drain a large amount of pus, packing was applied. Patient was premedicated with IV morphine and then patient requested a p.o. dose of oxycodone. Patient's glucose improved to 107 Differential Diagnosis Differential Diagnoses: The differential diagnosis associated with the presentation includes Admission/Observation Consideration of admission/observation: Escalation of care including admission/observation considered (Given patient's lack of PCP, medical history and presentation, observation was considered) Lab Data [facility] Lab Attestation statement: I reviewed the patient's lab results. 09/03/24 16:04 09/03/24 16:05 Labs: Lab Results 09/03/24 09/03/24 09/03/24 Range/Units 16:04 16:05 16:06 WBC 13.8 H (4.8-10.8) X10*3/uL RBC 4.64 (4.20-5.50) X10*6/uL Hgb 13.9 (12.0-16.0) g/dl Hct 41.5 (37.0-47.0) % MCV 89.4 (80.0-98.0) fL MCH 30.0 (27.0-33.0) pg MCHC 33.5 (31.0-35.0) g/dl RDW 12.6 (11.0-16.0) % Plt Count 526 H D (160-400) X10*3/uL MPV 9.7 (9.4-12.3) fL Immature Gran % (Auto) 0.6 H (0.0-0.4) % Neut % (Auto) 73.0 (45-73) % Lymph % (Auto) 17.0 L (20-40) % Dixie % (Auto) 7.8 (2-11) % Eos % (Auto) 1.3 (0-4) % Baso % (Auto) 0.3 (0-2) % Lymph # (Auto) 2.4 (1.2-4.9) X10*3/uL Dixie # (Auto) 1.1 (0.1-1.2) X10*3/uL Eos # (Auto) 0.2 (0.0-0.4) X10*3/uL Baso # (Auto) 0.0 (0.0-0.2) X10*3/uL Abs Immat Gran (auto) 0.08 H (0.00-0.03) X10*3/uL Absolute Neuts (auto) 10.1 H (2.0-8.3) x10*3/uL Absolute Nucleated RBC 0.000 (0.0-0.012) X10*3/uL Nucleated RBC % (auto) 0.0 (0.0-0.2) /100WBC ESR 74 H (0-20) MM/HR Sodium 136 (135-145) mmol/L Potassium 3.6 (3.3-5.1) mmol/L Chloride 101 (96-108) mmol/L Carbon Dioxide 26 (22-29) mmol/L Anion Gap 13 (12-20) BUN 6 L (9-16) mg/dL Creatinine 0.71 (0.5-1.4) mg/dL Estim Creat Clear Calc 73.9 Estimated GFR > 60 POC Glucose (60-115) mg/dL Random Glucose 540 H* (60-115) mg/dL Lactic Acid 1.4 (0.5-2.0) mmol/L Calcium 9.9 D (8.4-10.2) mg/dL Total Bilirubin 0.2 (0.0-1.0) mg/dL AST 21 (5-31) U/L ALT 26 (0-31) U/L Alkaline Phosphatase 178 H (39-117) U/L C-Reactive Protein 7.00 H (< or = 0.50) mg/dL Total Protein 7.7 (6.5-8.0) g/dL Albumin 4.1 (3.5-5.0) g/dL Beta-Hydroxybutyrate 0.06 (0.02-0.27) mmol/L 09/03/24 Range/Units 20:52 WBC (4.8-10.8) X10*3/uL RBC (4.20-5.50) X10*6/uL Hgb (12.0-16.0) g/dl Hct (37.0-47.0) % MCV (80.0-98.0) fL MCH (27.0-33.0) pg MCHC (31.0-35.0) g/dl RDW (11.0-16.0) % Plt Count (160-400) X10*3/uL MPV (9.4-12.3) fL Immature Gran % (Auto) (0.0-0.4) % Neut % (Auto) (45-73) % Lymph % (Auto) (20-40) % Dixie % (Auto) (2-11) % Eos % (Auto) (0-4) % Baso % (Auto) (0-2) % Lymph # (Auto) (1.2-4.9) X10*3/uL Dixie # (Auto) (0.1-1.2) X10*3/uL Eos # (Auto) (0.0-0.4) X10*3/uL Baso # (Auto) (0.0-0.2) X10*3/uL Abs Immat Gran (auto) (0.00-0.03) X10*3/uL Absolute Neuts (auto) (2.0-8.3) x10*3/uL Absolute Nucleated RBC (0.0-0.012) X10*3/uL Nucleated RBC % (auto) (0.0-0.2) /100WBC ESR (0-20) MM/HR Sodium (135-145) mmol/L Potassium (3.3-5.1) mmol/L Chloride (96-108) mmol/L Carbon Dioxide (22-29) mmol/L Anion Gap (12-20) BUN (9-16) mg/dL Creatinine (0.5-1.4) mg/dL Estim Creat Clear Calc Estimated GFR POC Glucose 107 (60-115) mg/dL Random Glucose (60-115) mg/dL Lactic Acid (0.5-2.0) mmol/L Calcium (8.4-10.2) mg/dL Total Bilirubin (0.0-1.0) mg/dL AST (5-31) U/L ALT (0-31) U/L Alkaline Phosphatase (39-117) U/L C-Reactive Protein (< or = 0.50) mg/dL Total Protein (6.5-8.0) g/dL Albumin (3.5-5.0) g/dL Beta-Hydroxybutyrate (0.02-0.27) mmol/L Critical Care Time Critical Care Time Critical Care Time: Yes Total Critical Care Time: 75 Attestation: I have personally provided critical care time. Time includes review of lab data, radiology results, discussion with consultants, and monitoring for potential decompensation. Intervention performed as documented. Discharge Plan Discharge Clinical Impression: Abscess of skin or subcutaneous tissue, Acute hyperglycemia Patient Disposition: Home, Self-Care Instructions: Diabetic Hyperglycemia (ED) Additional Instructions: Please return in 24-48 hours for wound check. Please follow-up with your primary care physician tomorrow. If you have any worsening or new symptoms, please return to the emergency room or call 911 Prescriptions: New insulin lispro [Humalog KwikPen Insulin] 100 unit/mL insulin pen 1 sliding scale dose subcut USEASDIRECTD Qty: 15 1RF Rx Instructions: Less than 70Hold all insulin and initiate hypoglycemia protocol. 70-1500 units 151-1742 units 175-1994 units 200-2246 units 225-2498 units 250-30264 units 275-73337 units (DME) pen needle, diabetic [Pen Needle] 32 gauge x 5/32 needle See Rx Instructions .Route Qty: 100 1RF Rx Instructions: As directed (DME) lancet-gluc [id number] Kit See Rx Instructions .Route Qty: 1 1RF Rx Instructions: As directed (DME) Accu-Chek Shwetha Plus test strp Strip See Rx Instructions .Route Qty: 100 1RF Rx Instructions: As directed (DME) blood-glucose meter [Accu-Chek Guide Glucose Meter] Misc See Rx Instructions .Route Qty: 1 0RF Rx Instructions: As directed doxycycline hyclate 100 mg capsule 100 mg PO BID Qty: 14 0RF cephalexin 500 mg capsule 500 mg PO Q12H Qty: 14 0RF tramadol 50 mg tablet 50 mg PO BID PRN (Reason: pain) Qty: 7 0RF Print Language: Mozambican
--- NOTE | 2024-09-03 15:39 | ECG_ITS ---
Test Reason : TACHYCARDIA Blood Pressure : */* mmHG Vent. Rate : 126 BPM Atrial Rate : 126 BPM P-R Int : 146 ms QRS Dur : 82 ms QT Int : 306 ms P-R-T Axes : 47 -65 51 degrees QTcB Int : 443 ms Sinus tachycardia Left anterior fascicular block Septal infarct (cited on or before 08-Jan-2019) Abnormal ECG When compared with ECG of 24-Jun-2023 15:29, Vent. rate has increased by 44 bpm Referred By: Debbi Mills Electronically Signed By: Alberto Couch
--- OUTSIDE RECORDS SUMMARY | 2024-09-03 16:07 | XMS_ITS | Encounter Summary ---
Author Organization [employer] Address [address] [facility] [address] [place] [address] Care Team Providers Care Superintendent Pier Name Role Phone Jazmine Flowers NP Primary Care Provider [phone] Reason for Visit * Reason Comments Med Refill Encounter Details Date Type Department Care Team ([facility] st Contact Info) Description 10/04/2023 Refill [facility] [address] [place] [address] Ana Greenberg FNP [address] [place] [address] Social History Tobacco Use Types Packs/Day Years Used Date Smoking Tobacco: Never Assessed Housing Stability Answer Date Recorded What is your housing situation today? I do not have housing (Staying with others, in a hotel, in a snf, living outside on the street, on a beach, in a car, or in a park 06/18/[address] you li ve. Do you have problems with any of the following? None of the above 06/18/2023 Food Insecurity Answer Date Recorded Within the past 12 months, y ou worried that your food would run out before you got money to buy more: Often true 03/17/2023 Within the past 12 months,th e food you bought just didn't last and you didn't have enough money to get more: Often true Transportation Answer Date Recorded In the past 12 months, has l ack of transportation kept you from medical appts, meetings, work or from getting things needed for daily living? Yes, it has kept me from medical appointments or getting medications. 06/18/2023 Utilities Answer Date Recorded In the past 12 months, has t he electric, gas, oil or water company threatened to shut off services in your home? No 03/17/2023 Comments Unknown Sex and Gender Information Value Date Recorded Sex Assigned at Female 03/04/2022 10:39 AM EDT Legal Sex Female 10:39 AM EDT Gender Identity Female 03/04/2022 10:39 AM EDT Sexual Orientation Straight 03/04/2022 10 :39 AM EDT documented as of this encounter Plan of Treatment Not on file documented as of this encounter Visit Diagnoses Not on filedocumented in this encounter Care Teams Superintendent Pier Relationship Specialty Start Date End Date Jazmine Flowers NP [address] [place] [id number] PCP - General Family Medicine 07/15/23 07/11/24 documented as of this encounter
--- OUTSIDE RECORDS SUMMARY | 2024-09-03 16:07 | XMS_ITS | Encounter Summary ---
Author Organization [employer] Address [address] [place] [address] [address] [place] [address] Care Team Providers Care Powder Worker Name Role Phone Jax Tinajero Primary Care Provider Unavail able Hannah Zhao MD Primary Care Pro vider Jazmine Flowers NP Primary Care Provider [phone] Reason for Visit * Reason Comments Med Refill Encounter Details Date Type Department Care Team (Late st Contact Info) Description 11/06/2022 Refill [facility] [address] [place] [address] Jax Tinajero AGNP Slow gastric motility Social History Tobacco Use Types Packs/Day Years Used Date Smoking Tobacco: Never Assessed Comments Unknown Sex and Gender Information Value Date Recorded Sex Assigned at Female 03/04/2022 10:39 AM EDT Legal Sex Female 10:39 AM EDT Gender Identity Female 03/04/2022 10:39 AM EDT Sexual Orientation Straight 03/04/2022 10 :39 AM EDT documented as of this encounter Plan of Treatment Not on file documented as of this encounter Visit Diagnoses Diagnosis Slow gastric motility documented in this encounter Care Teams Powder Worker Relationship Specialty Start Date End Date Jax Tinajero AGNP PCP - General Family Medicine 02/08/22 01/09/23 Hannah Zhao MD [address] [place] [address] PCP - General Internal Medicine 01/10/23 07/14/23 Jazmine Flowers NP [address] [place] [address] PCP - General Family Medicine 07/15/23 07/11/24 documented as of this encounter
--- OUTSIDE RECORDS SUMMARY | 2024-09-03 16:07 | XMS_ITS | Encounter Summary ---
Author Organization [employer] Address [address] [facility] [address] [place] [address] Care Team Providers Care Shaker Screen Operator Name Role Phone Kristie Jazmine POST Primary Care Provider [phone] Reason for Visit * Reason Comments Med Refill Encounter Details Date Type Department Care Team ([facility] st Contact Info) Description 08/21/2023 Refill [facility] MED[facility]INE [address] [place] [address] Hannah Zhao MD [address] [place] [address] Seasonal allergic rhinitis, unspecified trigger Social History Tobacco Use Types Packs/Day Years Used Date Smoking Tobacco: Never Assessed Housing Stability Answer Date Recorded What is your housing situation today? I do not have housing (Staying with others, in a hotel, in a fpc, living outside on the street, on a [...] as of this encounter Visit Diagnoses Diagnosis Seasonal allergic rhinitis, unspecified trigger documented in this encounter Care Teams Shaker Screen Operator Relationship Specialty Start Date End Date Jazmine Flowers NP [address] [place] [address] PCP - General Family Medicine 07/15/23 07/11/24 documented as of this encounter
--- OUTSIDE RECORDS SUMMARY | 2024-09-03 16:07 | XMS_ITS | Encounter Summary ---
Author Organization [employer] Address [address] [facility] [address] [place] [address] Care Team Providers Care Functional Skills Tutor Name Role Phone Jazmine Flowers NP Primary Care Provider [phone] Reason for Visit * Reason Comments Med Refill Encounter Details Date Type Department Care Team ([facility] st Contact Info) Description 10/11/2023 Refill [facility] [address] [place] [address] Hannah Zhao MD [address] [place] [address] Social History Tobacco Use Types Packs/Day Years Used Date Smoking Tobacco: Never Assessed Housing Stability Answer Date Recorded What is your housing situation today? I do not have housing (Staying with others, in a hotel, in a senior living, living outside on the street, on a [...] on filedocumented in this encounter Care Teams Functional Skills Tutor Relationship Specialty Start Date End Date Jazmine Flowers NP [address] [place] [id number] PCP - General Family Medicine 07/15/23 07/11/24 documented as of this encounter
--- OUTSIDE RECORDS SUMMARY | 2024-09-03 16:07 | XMS_ITS | Continuity of Care Document ---
Author Organization [facility] [address] [place] [address] Phone [phone] Care Team Providers Care Incident Response Manager Name Role Phone [facility] Care Team Information Last Dipper [phone] Problems Active Problems Provider Date Type 2 diabetes mellitus Candace Jhaveri M.D. Onset: 01/22/2022 Opioid dependence Candace Jhaveri M.D. O nset: 01/22/2022 Degeneration of cervical intervertebral disc Candace Jhaveri M.D. Onset: 01/22/2022 Tobacco dependence syndrome Candace da silva M.D. Onset: 01/22/2022 Anxiety Candace Jhaveri M.D. Ons et: 01/22/2022 Depressive disorder Candace Jhaveri M.D. Onset: 01/22/2022 ALT (SGPT) level raised Candace Jhaveri M.D. Onset: 01/22/2022 Social History Type Date Description Comments Sex Unknown Lives With Mother Work Status Disabled ETOH Use Denies alcohol use Tobacco Use Start: Unknown Heavy tobacco sm oker (more than 10 cigarettes/day) Allergies and adverse reactions Active Allergies Criticality Reaction Severity Comments Date Bactrim Unable to assess criticality Hives 01/22/2022 Medications Active Medications SIG Qnty Indications Ordering Provider Date Basaglar Hpffiwo653Klcb/ML Solution Pen-Inject Administer 45 units under the skin daily at bedtime 45ml E11.9 Candace Jhaveri M.D. 05/23/2023 Freestyle Emma 2/Sensor/Flash Glucose Monitoring Xoytsf2Lpnzao Misc Use as directed for testing blood sugars. Replace with new sensor every 14 days. 2units E11.9 Candace hJaveri M.D. 07/23/2022 Khwktegmqj5ay Tablets Take 1 Tablet By Mouth Three Times Daily as Needed For Anxiety Unknown Terconazole0.4% Cream Apply Vaginally AT Bedtime Once A Day For 7 Days Unknown Simethicone Ultra Ckjphcnl615hr Capsules Take 1 Capsule By Mouth 2-3 Times A Day With Meal And Bedtime Gordon Bruce Szcrdrsirm48br Capsules DR Take 1 Capsule By Mouth Every Day Before A Meal Teo [facility] Docusate Vavcvl355wx Capsules Take 1 Capsule By Mouth Twice Daily Teo [facility] Metformin HCL WZ133wz Tablets ER 24HR Take 4 Tablets By Mouth AT Bedtime as Directed 120tabs Candace Jhaveri M.D. Sertraline FCL825vb Tablets Take 2 Tablets By Mouth Every Morning Unknown Kkrwtlaiabvv4ez Tablets Take 1 Tablet By Mouth Every Morning Unknown Cetirizine AKI42cf Tablets Take 1 Tablet By Mouth Daily Tiffanie Rubin Novolog Uucucdm458Lsqh/ML Solution Pen-Inject inject 8-13 units under the skin three times daily as directed 30ml E11.9 Candace Jhaveri M.D. Atorvastatin Lyngucf86gv Tablets Take 1 Tablet By Mouth Every Day Gordon Bruce Vital Signs Date Vital Result Comment 10/07/2022 4:14pm Heart Rate 100 /min Results Test Acquired Date Facility Test Result H/L Range Note Anti-HBS Quant 10/28/2022 [facility] Anti-HBS Quant 5.7 mIU/mL Low 1 Anti-Hepatitis C 10/28/2022 [facility] Anti-Hepatitis C Non Reactive (Neg) 2 Hep. B Surf. Ag 10/28/2022 [facility] Hep. B Surf. Ag NEGATIVE (Neg) 3 Smooth Muscle AB 10/28/2022 [facility] Smooth Muscle AB 7 4 Anti Mitochondrial Antibody Without Interp 10/28/2022 [facility] Anti Mitochondrial Antibody Without Interp <20.0 5 Iron & Tibc 10/28/2022 [facility] Iron 56 g /dL (30-160) Unsaturated Iro n Binding [place] 392 g /dL High (110-370 ) Est T. Iron Bin d Capacity 448 g /dL (140-530 ) % Iron Saturation 13 % Low (20-55) Mitochondrial AB 10/12/2022 [facility] Mitochondrial AB <pending> Smooth Muscle AB 10/12/2022 [facility] Smooth Muscle AB <pending> Anti-HBS Quant 10/12/2022 [facility] Anti-HBS Quant <pending> Hep. B Surf. Ag 10/12/2022 [facility] Hep. B Surf. Ag <pending> Anti-Hepatitis C 10/12/2022 [facility] Anti-Hepatitis C <pending> Comprehensive Metabolic Panl 10/07/2022 [facility] Glucose 449 mg/dL High (70-99) BUN 11 mg/dL (6-20) Creatinine 0.5 mg/dL (0.5-1.0 ) Sodium 137 mmol/L (133-145 ) Potassium 4.5 mmol/L (3.6-5.2 ) Chloride 97 mmol/L Low (98-107) Bicarbonate 24 mmol/L (22-29) Anion Gap 16 (4-17) Albumin 4.9 GM/DL High (3.4-4.8 ) Calcium 10.2 mg/dL (8.6-10. 5) Bilirubin,Total 0.2 mg/dL (0-1.2 ) Total Protein 7.9 GM/DL (6.2-8.2 ) Ag Ratio 1.6 Ast 50 U/L High (0-32) Alk Phos 197 U/L High (35-104) Alt 103 U/L High (0-33) Estimated GFR Creatinine 118 ML/MIN/1.73 M2 6 Complete Abc With Diff 10/07/2022 [facility] WBC 10.4 K/MM3 (4.0-11. 0) RBC 5.83 M/MM3 High (4.20-5. 40) HGB 17.4 GM/DL High (11.7-15 .5) HCT 53.3 % High (35.7-45 .8) MCV 91.4 FL (80.0-10 0.0) MCH 29.8 pg (27.0-34 .0) MCHC 32.6 g/dL Low (33.0-37 .0) PLT 418 K/MM3 (150-460 ) RDW-SD 45.0 FL (<47.0) MPV 10.2 FL (9.4-12. 4) Automated NRBC 0.0 #/100WBC'S Abs. NRBC 0.0 K/MM3 Neut # 6.0 K/MM3 (1.3-7.0 ) Lymph # 3.3 K/MM3 High (0.8-3.1 ) [place]# 0.7 K/MM3 (0.4-0.9 ) Eo # 0.3 K/MM3 (0.0-0.4 ) Baso # 0.1 K/MM3 (0.0-0.1 ) Abs. Imm Gran 0.1 K/MM3 Neut 57.7 % (44-76) Lymph 31.8 % (15-43) Monocyte 6.6 % (4.5-10. 5) Eo 2.8 % (0-6) Baso 0.6 % (0-2) Imm Gran 0.5 % Urinary Microalbumin 10/07/2022 [facility] Micro-Albumin 65.0 mg/L High (<20) 7 Malb/Creat Ratio 153.3 MG/GM High (0- 20) Urine Creat For Micro Albumin 42.2 mg/dL Glucose Fingerstick 10/07/2022 Inhouse Glucose Fingerstick 486 Hemoglobin A1c 10/07/2022 Inhouse Hemoglobin A1c 14.5% Glucose Fingerstick 01/22/2022 Inhouse Glucose Fingerstick 419 1 Reference range: Imm unity>9.9 (NOTE) Status of Immunity Anti-HBs Level Inconsistent with Immunity 0.0 - 9.9 Consistent with Immunity >9.9 Test performed by [facility], [address] [place] [address] 2 Reference range: Non Reactive (NOTE) HCV antibody alone does not differentiate between previously resolved infection and active infection. Equivocal and Reactive HCV antibody results should be followed up with an HCV RNA test to support the diagnosis of active HCV infection. Test performed by [facility], [address] [place] [address] 3 [facility] by [facility], [address] [place] [address] 4 Reference range: 0 t o 19 Unit: Units (NOTE) Negative 0 - 19 Weak positive 20 - 30 Moderate to strong positive >30 Actin Antibodies are found in 52-85% of patients with autoimmune hepatitis or chronic active hepatitis and in 22% of patients with primary biliary cirrhosis. Test performed by [facility], [address] [place] [address] 5 Reference range: 0.0 to 20.0 Unit: Units (NOTE) Negative 0.0 - 20.0 Equivocal 20.1 - 24.9 Positive >24.9 Mitochondrial (M2) Antibodies are found in 90-96% of patients with primary biliary cirrhosis. Test performed by [facility], [address] [place] [address] 6 Creatinine based est imated glomerular filtration (eGFR) in adults is calculated using the National [employer] recommended 2020 CKD-EPI equation. Estimates GFR from serum creatinine, age and sex. 7 The urine microalbum in test is designed to monitor renal function. When screening for Bence Palencia proteinuria, urine electrophoresis is recommended. Procedures Date Code Description Status 05/15/2023 NSHOWOFF No Show Office Visit Complet ed 06/14/2022 NSHOWOFF No Show Office Visit Complet ed 05/16/2022 NSHOWOFF No Show Office Visit Complet ed Medical Devices Description No Information Available Encounters Type Date Location Provider Dx Diagnosis Office Visit 10/07/2022 3:00p Main Office Candace Jhaveri M.D. E11.9 Type 2 diabetes mellitus without complications F41.9 Anxiety disorder, un specified E11.8 Type 2 diabetes lynda itus with unspecified complications Assessments Date Code Description Provider 10/12/2022 R74.01 Elevation of lev els of liver transaminase levels Candace Jhaveri M.D. 10/12/2022 R74.8 Abnormal levels of other ser um enzymes Candace Jhaveri M.D. 10/07/2022 E11.9 Type 2 diabetes mellitus without complications Candace Jhaveri M.D. 10/07/2022 F41.9 Anxiety disorder, unspecifie d Candace Jhaveri M.D. 10/07/2022 E11.8 Type 2 diabetes mellitus with unspecified complications Candace Jhaveri M.D. Plan of Treatment No Information Available Functional Status Description No Information Available Mental Status Description No Information Available Referrals Refer to Reason for Referral Status Appt Hayder e [facility] ABNORMAL LIVER FUNCTION Clos ed 07/08/[address] [address] [phone]
--- OUTSIDE RECORDS SUMMARY | 2024-09-03 16:07 | XMS_ITS | Data Portability ---
Author Organization [place] [facility], Allergy Address [address] [address] Care Team Providers Care Board Lining Machine Operator Name Role Phone SINTIA QUINTERO Primary Care Provider Assessment No assessment recorded. Plan of Treatment Reminders Order Date Submit Date Provider Last Modified By Organization Details Last Modified Time Details Appointments None record ed. Lab None record ed. Referral None record ed. Procedures None record ed. Surgeries None record ed. Imaging None record ed. Medication Orders None record ed. Patient TargetsNo targets recorded. Patient InstructionsNo instructions recorded. Reason for Referral None Reported. Results Created Date Observation Date Name Description Value Unit Range Abnormal Flag Note LastModifiedBy Organization Detail LastModifiedTime 03/25/20 24 audio gram No observ ation record ed. BARCODE Not Available 2023 11:49:45 Result Notes None recorded. Problems Name Problem SNOMED Code Status Onset Date Resolution Date Notes Provider Name and Address Organization Details Recorded Time Chronic rhinitis 38514204 Active 2021 Chronic rhinitis; Note: Date Diagnosed : 09/07/2021 11:28 AM (J31.0) Not Available [facility] 4 03:02:40 Disorder of nasal sinus 1992581 Active 2021 Perforati on of nasal septum NOS; Note: Date Diagnosed : 09/07/2021 11:28 AM (J34.89) Not Available [facility] 4 03:02:41 Disorder of the nose 00108715 Active 2021 Perforati on of nasal septum NOS; Note: Date Diagnosed : 09/07/2021 11:28 AM (J34.89) Not Available [facility] 4 03:02:41 Impacted cerumen of bilateral ears 16571397299 19848 Active 2021 Impacted cerumen, bilateral ; Note: Date Diagnosed : 09/07/2021 11:28 AM (H61.23) Not Available [facility] 4 03:02:41 Perforati on of nasal septum 69158091 Active 2023 PHILLIP SCHAEFER MD [address] [facility],[place] [address], [place], [address] , [facility] - [facility] 4 10:42:01 Abnormal auditory perceptio n 47073996 Active 2023 PHILLIP SCHAEFER MD [address] [facility],[place] [address], [place], [address] , [facility] 4 10:42:20 Problem Notes None recorded. Procedures Surgical History Date Name Laterality Status Provider Name and Address Organization Details Recorded Time 03/25/2024 Air & Speech Audio with Tymps - 25672, 39635 & 76618 completed JOESLYN SAEZ [address] [facility],[place] [address], [place], [address], [facility] 03/25/2024 11:00:18 Imaging Results Imaging Date Name Status LastModified by Organiz ation Details LastModified Time 03/25/2024 audiogram completed BARCODE Information no t available 03/25/2024 11:49:45 Procedure Notes None recorded. Medical Equipment None Reported. Medications Name Sig Start Date Stop Date Status Note LastModified by Organization Details LastModified Time cetirizine 10 mg tablet TAKE 1 TABLET BY MOUTH EVERY MORNING active Not Available Not Available No t Available simethicon e 180 mg capsule TAKE 1 CAPSULES BY MOUTH 2-3 TIMES A DAY WITH MEALS AND AT BEDTIME active Not Available Not Available No t Available fluconazol e 150 mg tablet TAKE 1 TABLET BY MOUTH ON THE FIRST DAY THEN TAKE 1 TABLET BY MOUTH EVERY 3RD DAY active Not Available Not Available No t Available prazosin 1 mg capsule TAKE 1 TO 2 CAPSULES BY MOUTH AT BEDTIME NEEDED FOR NIGHTMARE S active Not Available Not Available No t Available sertraline 100 mg tablet TAKE 2 TABLETS BY MOUTH EVERY MORNING active Not Available Not Available No t Available clonazepam 1 mg tablet TAKE 1 TABLET BY MOUTH TWICE DAILY NEEDED FOR ANXIETY active Not Available Not Available No t Available omeprazole 40 mg capsule,de layed release active Medicatio n ID: [id number] Br and Name: omeprazol e Send Method: E-Prescri bed Subs Allowed: subs OK Medica tionGener icName: omeprazol e Not Available Not Available Not Available clotrimazo le-betamet hasone 1 %-0.05 % topical cream APPLY TOPICALLY TO THE AFFECTED AREA TWICE DAILY FOR 7 DAYS active Not Available Not Available No t Available docusate sodium 100 mg capsule TAKE 1 CAPSULES BY MOUTH TWICE DAILY active Not Available Not Available No t Available azelastine 137 mcg (0.1 %) nasal spray USE 2 SPRAYS IN EACH NOSTRIL EVERY DAY active Not Available Not Available No t Available metformin ER 500 mg tablet,ext ended release 24 hr active Medicatio n ID: [id number] Br and Name: metformin Send Method: E-Prescri bed Subs Allowed: subs OK Medica tionGener icName: metformin Not Available Not Available Not Available Novolog FlexPen U-100 Insulin aspart 100 unit/mL (3 mL) subcutaneo us INJECT 8-13 UNITS UNDER THE SKIN THREE TIMES DAILY DIRECTED active Not Available Not Available No t Available aripiprazo le 5 mg tablet TAKE 1 TABLET BY MOUTH EVERY MORNING active Not Available Not Available No t Available BD Ultra-Fine Mini Pen Needle 31 gauge x 3/16 USE DIRECTED FOUR TIMES DAILY active Not Available Not Available No t Available Lantus Solostar U-100 Insulin 100 unit/mL (3 mL) subcutaneo us pen ADMINISTE R 45 UNITS UNDER THE SKIN AT BEDTIME active Not Available Not Available No t Available Vitals Date Recorded Body height Body mass index (BMI) Body weight Provider Name and Address Organization Details Last Updated DateTime 03/25/2024 157.48 cm 23.8 kg/m2 93255.01 g Ck Recinos [place] - [facility] 03/25/2024 10:27:28 Social History Question Answer Notes LastModified by Organizat ion Details LastModified Time Tobacco Smoking Status Current Every Day Smoker PHILLIP HO MD [address] [place] [address], [address], [place] - [facility] 03/25/2024 10:38:15 What Is Your Current Pack Years? 30ormorepacky ears Information not available 03/25/2024 How Much Tobacco Do You Smoke? 1 PPD Information not available 03/25/2024 Sex: Unknown Functional Status None recorded. Mental Status None recorded. Family History Nothing Reported. Medical History Condition Response Nasal or Sinus Problems Diabetes Y Rhinitis Y GERD/Reflux Y Gynecological HistoryNo gynecological history recorded. Obstetrics History GPAL:G 0 P 0 0 0 0 Past Encounters Encounter ID Performer Location Encounter Start Date Encounter Closed Date Diagnosis/Indication Diagnosis SNOMED-CT Code Diagnosis ICD10 Code Diagnosis Note [id number] PHILLIP SCHAEFER MD [facility] [address] [address] 03/25/2024 10:10:43 03/25/2024 11:13:14 Perforation of nasal septum 35289561 J34.89 Chronic rhinitis 2635758 6 J31.0 Suggest saline lavage with the NeilMed sinus rinse or the powered Navage system. We discussed that there is really no surgical cure for her postnasal drip Impacted c erumen of bilateral ears 1050541651 547795 H61.23 Suggested 3 drops distilled vinegar in each ear twice weekly to prevent the buildup of cerumen Abnormal a uditory perception 42979515 H93.293 Right Ear:Normal hearing with excellent speech discrimina tion.Type A tympanogra m.Left Ear:Normal hearing with excellent speech discrimina tion.Type A tympanogra m. Health Concerns Section Related Observation LastModified by Organization Detai ls LastModified Time None Recorded Concern Status LastModified by Organization Details LastModified Time None Recorded Advance Directives Directive None Recorded Payers Encounter Date Sequence Insurance Name Policy Number Policy Clemens Covered Member ID Clemens Member ID Guarantor Name 03/25/2024 1 [facility] [place] (MEDICARE REPLACEMENT/AD VANTAGE - HMO) Monica Wells [id number] Monica Wells 03/25/2024 1 [place] [facility] Monica Wells [id number] Monica Wells Notes Date Note Type Note Provider Name and Address Organization Details Recorded Time 03/25/2024 text/html Patient seen in Jun 26 for opinion regarding septal perforation nasal crusting. I had suggested saline irrigations and follow-up for endoscopy. She decided that was too anxiety provoking and is just been managing it with saline solutionLast cocaine before 2003 and hx nasal trauma Interested in ear cleaning PHILLIP HO MD [address] [place] [address], [address], [place] - [facility] 03/25/2024 13:21:05 OBGyn Episode No OBEpisode recorded.
--- OUTSIDE RECORDS SUMMARY | 2024-09-03 16:07 | XMS_ITS | Encounter Summary ---
Author Organization [employer] Address [address] [facility] [address] [place] [address] Care Team Providers Care Backend Java Developer Name Role Phone Hannah Zhao MD Primary Care Pro vider Jazmine Flowers NP Primary Care Provider [phone] Reason for Visit * Reason Comments Med Refill Encounter Details Date Type Department Care Team ([facility] st Contact Info) Description 03/13/2023 Refill [facility] [address] [place] [address] Hannah Zhao MD [address] [place] [address] Slow gastric motility Social History Tobacco Use Types Packs/Day Years Used Date Smoking Tobacco: Never Assessed Housing Stability Answer Date Recorded What is your housing situation today? I have nikolaicasie ruby 03/17/[address] you li ve. Do you have problems with any of the following? None of the above 03/17/2023 Food Insecurity Answer Date Recorded Within the [...] from getting things needed for daily living? No 03/17/2023 Utilities Answer Date Recorded In the past [...] motility documented in this encounter Care Teams Backend Java Developer Relationship Specialty Start Date End Date Hannah Zaho MD [address] [place] [address] PCP - General Internal Medicine 01/10/23 07/14/23 Jazmine Flowers NP [address] [place] [address] PCP - General Family Medicine 07/15/23 07/11/24 documented as of this encounter
--- OUTSIDE RECORDS SUMMARY | 2024-09-03 16:07 | XMS_ITS | Encounter Summary ---
Author Organization [employer] Address [address] [facility] 7t [place] [address] Care Team Providers Care Crankshaft Straightener Name Role Phone Jazmine Flowers NP Primary Care Provider [phone] Reason for Visit * Reason Comments Med Refill Encounter Details Date Type Department Care Team ([facility] st Contact Info) Description 10/24/2023 Refill [facility] [address] [place] [address] Ana Greenberg FNP [address] [place] [address] Social History Tobacco Use Types Packs/Day Years Used Date Smoking Tobacco: Never Assessed Housing Stability Answer Date Recorded What is your housing situation today? I do not have housing (Staying with others, in a hotel, in a mcc, living outside on the street, on a [...] on filedocumented in this encounter Care Teams Crankshaft Straightener Relationship Specialty Start Date End Date Jazmine Flowers NP [address] [place] [address] PCP - General Family Medicine 07/15/23 07/11/24 documented as of this encounter
--- OUTSIDE RECORDS SUMMARY | 2024-09-03 16:07 | XMS_ITS | Encounter Summary ---
Author Organization [employer] Address [address] [place] [address] [address] [place] [address] Care Team Providers Care Allied Health Instructor Name Role Phone Jax Tinajero Primary Care Provider Unavail able Hannah Zhao MD Primary Care Pro vider Jazmine Flowers NP Primary Care Provider [phone] Reason for Visit * Reason Comments Med Refill Encounter Details Date Type Department Care Team (Late st Contact Info) Description 12/13/2022 Refill [facility] MED[facility]INE [address] [place] [address] Jax Tinajero AGNP Social History Tobacco Use Types Packs/Day Years [...] on filedocumented in this encounter Care Teams Allied Health Instructor Relationship Specialty Start Date End Date Jax Tinajero AGNP PCP - General Family Medicine 02/08/22 01/09/23 Hannah Zhao MD [address] [place] [address] PCP - General Internal Medicine 01/10/23 07/14/23 Jazmine Flowers NP [address] [place] [address] PCP - General Family Medicine 07/15/23 07/11/24 documented as of this encounter
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
--- OUTSIDE RECORDS SUMMARY | 2024-09-03 16:07 | XMS_ITS | Encounter Summary ---
Author Organization [email or web address] Address [address] [facility] [address] [place] [address] Care Team Providers Care Photovoltaic Testing Technician Name Role Phone Jax Tinajero Primary Care Provider Unavail able Hannah Zhao MD Primary Care Pro vider Jazmine Flowers NP Primary Care Provider [phone] Encounter Details Date Type Department Care Team (Late st Contact Info) Description 12/17/2022 Telephone [facility] MEDICINE [address] [place] [address] Jax Tinajero AGNP Social History Tobacco Use [...] on filedocumented in this encounter Care Teams Photovoltaic Testing Technician Relationship Specialty Start Date End Date Jax Tinajero AGNP PCP - General Family Medicine 02/08/22 01/09/23 Hannah Zhao MD [address] [place] [address] PCP - General Internal Medicine 01/10/23 07/14/23 Jazmine Flowers NP [address] [place] [address], [place] [address] PCP - General Family Medicine 07/15/23 07/11/24 documented as of this encounter
--- OUTSIDE RECORDS SUMMARY | 2024-09-03 16:07 | XMS_ITS | Encounter Summary ---
Author Organization [employer] Address [address] [facility] [address] [place] [address] Care Team Providers Care Cardiology Technician Name Role Phone Jazmine Flowers NP Primary Care Provider [phone] Reason for Visit * Reason Comments Med Refill Encounter Details Date Type Department Care Team ([facility] st Contact Info) Description 10/21/2023 Refill [facility]INE [address] [place] [address] Ana Greenberg FNP [address] [place] [address] Social History Tobacco Use Types Packs/Day Years Used Date Smoking Tobacco: Never Assessed Housing Stability Answer Date Recorded What is your housing situation today? I do not have housing (Staying with others, in a hotel, in a chcf, living outside on the street, on a [...] on filedocumented in this encounter Care Teams Cardiology Technician Relationship Specialty Start Date End Date Jazmine Flowers NP [address] [place] [address] PCP - General Family Medicine 07/15/23 07/11/24 documented as of this encounter
--- OUTSIDE RECORDS SUMMARY | 2024-09-03 16:07 | XMS_ITS | Encounter Summary ---
Author Organization [employer] Address [address] [facility] [address] [place] [address] Care Team Providers Care Oncology Registrar Name Role Phone Hannah Zhao MD Primary Care Pro vider Jazmine Flowers NP Primary Care Provider [phone] Reason for Visit * Reason Comments Med Refill Encounter Details Date Type Department Care Team ([facility] st Contact Info) Description 05/01/2023 Refill [facility] [address] [place] [address] Ana Greenberg FNP [address] [place] [address] Social History Tobacco Use Types Packs/Day Years Used Date Smoking Tobacco: Never Assessed Housing Stability Answer Date Recorded What is your housing situation today? I have nikolai ruby 03/17/[address] you [...] on filedocumented in this encounter Care Teams Oncology Registrar Relationship Specialty Start Date End Date Hannah Zhao MD [address] [place] [address] PCP - General Internal Medicine 01/10/23 07/14/23 Jazmine Flowers NP [address] [place] [address] PCP - General Family Medicine 07/15/23 07/11/24 documented as of this encounter
[2024-09-03 16:14] LABS: MANUAL DIFF FLAG NO
[2024-09-03 16:21] LABS: Basophils Percent Auto 0.3 % (0-2); Eosinophils Absolute Auto 0.2 X10*3/uL (0.0-0.4); Eosinophils Percent Auto 1.3 % (0-4); Hematocrit 41.5 % (37.0-47.0); Hemoglobin 13.9 g/dl (12.0-16.0); Imm Gran Abs Auto 0.08 X10*3/uL (0.00-0.03); Imm Gran Pct Auto 0.6 % (0.0-0.4); Lymphocytes Absolute Auto 2.4 X10*3/uL (1.2-4.9); Mean Corpuscular HGB Conc 33.5 g/dl (31.0-35.0); Mean Corpuscular Volume 89.4 fL (80.0-98.0); Mean Platelet Volume 9.7 fL (9.4-12.3); Monocytes Absolute Auto 1.1 X10*3/uL (0.1-1.2); Monocytes Percent Auto 7.8 % (2-11); Neutrophils Absolute Auto 10.1 x10*3/uL (2.0-8.3); Platelet Count 526 X10*3/uL (160-400); Red Blood Count 4.64 X10*6/uL (4.20-5.50); Red Cell Distribution Width 12.6 % (11.0-16.0); White Blood Count 13.8 X10*3/uL (4.8-10.8)
[2024-09-03 16:35] LABS: Lactic Acid 1.4 mmol/L (0.5-2.0)
[2024-09-03 16:39] LABS: Alanine Aminotransferase 26 U/L (0-31); Albumin Level 4.1 g/dL (3.5-5.0); Alkaline Phosphatase 178 U/L (39-117); Anion Gap 13 (12-20); Aspartate Amino Transferase 21 U/L (5-31); Bilirubin Total 0.2 mg/dL (0.0-1.0); Blood Urea Nitrogen 6 mg/dL (9-16); Calcium 9.9 mg/dL (8.4-10.2); Carbon Dioxide 26 mmol/L (22-29); Chloride 101 mmol/L (96-108); Creatinine Clr Calc Pharmacy 73.9; Estimated Glomerular Filt Rate > 60; Glucose Random 540 mg/dL (60-115); Potassium 3.6 mmol/L (3.3-5.1); Sodium 136 mmol/L (135-145); Total Protein 7.7 g/dL (6.5-8.0)
[2024-09-03 16:54] LABS: Erythrocyte Sedimentation Rate 74 MM/HR (0-20)
[2024-09-03 19:35] LABS: Beta-Hydroxybutyrate 0.06 mmol/L (0.02-0.27)
[2024-09-03 19:55] VITALS: RESP 20
[2024-09-03] MEDS: 0.9 % Sodium Chloride 1,000 ML 999 ML IVCONT (19:55)
[2024-09-03] MEDS: Morphine Sulfate 2 MG/ML CARTRIDGE IVPUSH (19:55)
[2024-09-03] MEDS: Insulin Regular, Human 100 UNIT/ML 10 ML VIAL 10 UNIT IVPUSH (19:56)
[2024-09-03] MEDS: Lidocaine HCl 1 % 20 ML VIAL INFILTRATI (19:56)
[2024-09-03 20:01] VITALS: BP 140/99; PULSE 115; RESP 20; TEMP 36.7; O2SAT 99
[2024-09-03 21:02] LABS: Glucose, Whole Blood 107 mg/dL (60-115)
[2024-09-03 22:03] VITALS: BP 147/98; PULSE 102; RESP 20; TEMP 36.9; O2SAT 98
[2024-09-03] MEDS: Doxycycline Monohydrate 100 MG CAPSULE PO (22:23)
[2024-09-03] MEDS: cephALEXin 500 MG CAPSULE PO (22:23)
[2024-09-03] MEDS: oxyCODONE HCl Immed Release 5 MG TABLET PO (22:23)
[2024-09-03 22:50] VITALS: BP 147/98; PULSE 102; RESP 20; TEMP 36.9; O2SAT 98
[2024-09-03 23:08] LABS: HCG Quantitative < 2 mIU/mL
== END 2024-09-03 22:55 | disposition home or self-care (01) ==
PROVIDERS: Nurse Practitioner Family; Emergency Provider Emergency Medicine
DX: L02.212 Cutaneous abscess of back [any part, except buttock and flank] (principal); R00.0 Tachycardia, unspecified; E11.65 Type 2 diabetes mellitus with hyperglycemia; Z79.899 Other long term (current) drug therapy
CPT/HCPCS: 10060; 36415; 80053; 82010; 82947; 83605; 84702; 85025; 85652; 86140; 87040; 87070; 87077; 87186; 87205; 93005; 96361; 96374; 96375; 99284; J2003; J2270

== ENCOUNTER → 2024-09-03 15:39 | Outpatient (BNV) | payer OTHER, SELFPAY | PROVIDERS: Emergency Provider Emergency Medicine; Visit Provider Internal Medicine Cardiovascular Disease | DX: R00.0 Tachycardia, unspecified (principal); R94.31 Abnormal electrocardiogram [ECG] [EKG] | CPT/HCPCS: 93010 ==

== ENCOUNTER 2025-01-28 12:49 | Emergency (ER) | payer OTHER, SELFPAY ==
--- NOTE | ~2025-01-28 | XR_ITS ---
EXAMINATION: XR FINGER, RIGHT CLINICAL INFORMATION: 3rd finger COMPARISON: None available. TECHNIQUE: PA hand and oblique and lateral views of the right third digit. FINDINGS: Numerous metal rings obscure bony detail at the base of the first, second, third, and fourth proximal phalanges. Small calcification on the right side of the IP joint of thumb is probably chronic. Soft tissue swelling is suspected in the palmar side of the distal third finger. No foreign body or fracture is identified. XR/XR finger RT min 2V IMPRESSION: Suspected soft tissue swelling in the distal third digit of the right hand. No definite acute bony abnormality or visible foreign body Electronically signed by: Willard Gupta MD 01/28/2025 01:35 PM EDT
[2025-01-28 13:14] VITALS: BP 180/95; PULSE 140; RESP 18; TEMP 36.4; O2SAT 99; BMI 48.2
--- NOTE | 2025-01-28 13:17 | ED_ITS ---
HPI - General Adult General Chief complaint: Skin/Abscess/Foreign Body Stated complaint: infection in middle finger Source: patient Mode of arrival: ambulatory Limitations: no limitations History of Present Illness ED Provider: Dr. Rula Thompson HPI narrative: patient comes to the emergency room complaining of right middle finger swelling pain and pus accumulation. Patient states that the swelling and the pain started yesterday. Patient came to the emergency room but decided to leave without being seen. Today, the swelling and the pain got much worse and decided to stay. patient denies fever chills. Patient states that the ring in her middle finger in the right hand is very tight and hurts quite a bit. patient states that the swelling startedGetting worse earlier this morning. Related Data Previous Rx's ?Medication ?Instructions ?Recorded blood sugar diagnostic (Accu-Chek #100 ea 09/03/24 Shwetha Plus test strips) blood-glucose meter (Accu-Chek #1 ea 09/03/24 Guide Glucose Meter) cephalexin 500 mg capsule 500 mg PO Q12H #14 caps 06/29 doxycycline hyclate 100 mg capsule 100 mg PO BID #14 c aps 09/03/24 insulin lispro 100 unit/mL 1 sliding scale dose subcut 09/03/24 subcutaneous pen (Humalog KwikPen USEASDIRECTD #15 mL (U-100) Insulin) lancets-blood glucose test #1 ea 09/03/24 strips-pen needles with gauze kit pen needle, diabetic 32 gauge x #100 ea 09/03/24 5/32 (Pen Needle) tramadol 50 mg tablet 50 mg PO BID PRN pain #7 tab s 09/03/24 Allergies Allergy/AdvReac Type Severity Reaction Status Date / Time sulfamethoxazole (From Allergy Severe HIVES Verified 01/29/25 22:02 BACTRIM) trimethoprim (From BACTRIM) Allergy Severe HIVES Verified 01/29/25 22:02 bee pollen (BEE STINGS) Allergy Unknown UNKNOWN Verified 01/29/25 22:02 NSAIDS (Non-Steroidal Allergy Unknown BLEEDING Verified 01/29/25 22:02 Anti-Inflamma (NSAIDS ULCERS (NON-STEROIDAL ANTI-INFLAMMA) Review of Systems 2 Review of Systems: Constitutional : No Weight loss, No Fever, No Chills, No Night Sweats, No Fatigue, No Malaise ENT/Mouth : No Hearing loss, No Ear Pain, No Nasal Congestion, No Sinus Pain, No Hoarseness, No sore throat, No Rhinorrhea, No Swallowing Difficulty Eyes: No Eye Pain, No Swelling, No Redness, No Foreign Body, No Discharge, No Vision Changes Cardiovascular : No Chest Pain, No SOB, No Dyspnea on Exertion, No Orthopnea, No Edema, No Palpitations Respiratory : No Cough, No Sputum, No Wheezing, No Smoke Exposure, No Dyspnea Gastrointestinal : No Nausea, No Vomiting, No Diarrhea, No Constipation, No abdominal Pain, No Hematochezia, No Melena Genitourinary : no irregular bleeding, No Dysuria, No Urinary Frequency, No Hematuria, No Urinary Incontinence, No Urgency, No Flank Pain, No Urinary Flow Changes, No Hesitancy Musculoskeletal : No joint pain, No Myalgias, No Joint Swelling Skin : Complaining of right middle finger swelling, pus accumulation, finger swelling, finger ring tightness Neuro : No Weakness, No Numbness, No Paresthesias, No Loss of Consciousness, No Dizziness, No Headache Psych : No Anxiety/Panic, No Depression, No SI/HI/AH/VH, No Social Issues, Heme/Lymph: No Bruising, No Bleeding,No Lymphadenopathy Endocrine : No Polyuria, No Polydipsia, No Temperature Intolerance [facility] Past Medical History Medical History (Updated 01/30/25 @ 00:03 by Rula Thompson MD) Polysubstance abuse Diabetes Type 2 diabetes mellitus Social History Social History Smoked in Last 30 Days: Yes Use of substances other than those prescribed or required for medical reasons: No Advance Directives: No Advance Directives Information Provided: No Do you have a plan to hurt others: No Plan Patient : No Physical Exam ED Exam Exam: Appearance: Alert. Oriented X3. No acute distress. Eyes: Pupils equal, round and reactive to light. ENT: Pharynx normal. Neck: Normal inspection. Neck supple. No lymph nodes noted. No crepitus CVS: Normal heart rate and rhythm. Pulses normal. Normal S1 and S2 Respiratory: No respiratory distress. Breath sounds normal. No Wheezing. No rales Abdomen: Soft and nontender. No rigidity. No distention. Skin: Skin warm and dry. Normal skin color. Normal skin turgor. see extremities below Extremities: No lower extremity edema. . On the right hand, patient's right middle finger has a large collection of pus. Patient is very tender to touch, very swollen, the ring around the finger is very tight finger erythematous . Patient has streaking erythema all the way up to the axilla, patient has palpable lymphadenopathy in the right axilla Neuro: Oriented X 3. No motor deficit. No sensory deficit. Moving all extremities. No slurred speech. CN 2 through 12 grossly intact Psych: calm, cooperative, normal affect Vital Signs: BMI result Body Mass Index 48.2 Course Course Course Narrative: RME, this is a rapid medical exam performed by Bo Mitchell please refer to primary provider for complete H&P- 49-year-old female with a recent diagnosis of diabetes presents for evaluation of an abscess to the dorsal surface of her right 3rd finger. Symptoms started 2 days ago. She has erythema with a large abscess to the dorsal surface of the right hand. Plan for labs including blood cultures, x-ray to evaluate for osteomyelitis Medical Decision Making Medical Decision Making MDM Narrative: my interpretation of labs: My interpretation of labs scan patient's white blood cell count 17.6, lactic acid normal, no significant abnormality patient's chemistry other than a glucose of 320, LFTs slightly elevated chronically x-ray of the hand/finger from yesterday: swollen, no obvious signs of osteomyelitis we asked the patient to keep her hand in cold IC water with Betadine to help reduce the swelling and help with the infection with an 11 size blade, a small incision was made over the callus of the abscess in the finger, a very large amount of pus was drained, almost no blood then, we attempted wrapping the patient's finger with dental floss to attempt to remove the ring. However, the swelling was significant in the ring did not go through. We had to use a ring cutter to cut the patient's ring patient's glucose elevated, given IV fluids 2L NS and insulin 5 units patient does not have any fever, no episodes of hypotension, normal lactic, sepsis is not suspected. Patient was started on vanco and Zosyn. For unclear reasons, patient's nurse was able to see the order, but there was a system glitch and the antibiotics and fluids do not appear as ordered , but they were both administered. I discussed the patient with Dr. Dao, patient needs admission. the above-mentioned was discussed with the patient, who agrees with the plan Differential Diagnosis Differential Diagnoses: The differential diagnosis associated with the presentation includes Admission/Observation Consideration of admission/observation: Escalation of care including admission/observation considered Consult Healthcare Provider Management of the patient was discussed with: Hospitalist Lab Data MDM Lab Attestation statement: I reviewed the patient's lab results. 01/28/25 13:54 01/28/25 13:54 Labs: Lab Results 01/28/25 Range/Units 13:54 WBC 16.8 H (4.8-10.8) X10*3/uL RBC 4.63 (4.20-5.50) X10*6/uL Hgb 14.2 (12.0-16.0) g/dl Hct 40.3 (37.0-47.0) % MCV 87.0 (80.0-98.0) fL MCH 30.7 (27.0-33.0) pg MCHC 35.2 H (31.0-35.0) g/dl RDW 12.8 (11.0-16.0) % Plt Count 469 H (160-400) X10*3/uL MPV 9.6 (9.4-12.3) fL Immature Gran % (Auto) 0.5 H (0.0-0.4) % Neut % (Auto) 76.4 H (45-73) % Lymph % (Auto) 15.8 L (20-40) % [place] % (Auto) 6.7 (2-11) % Eos % (Auto) 0.3 (0-4) % Baso % (Auto) 0.3 (0-2) % Lymph # (Auto) 2.7 (1.2-4.9) X10*3/uL [place] # (Auto) 1.1 (0.1-1.2) X10*3/uL Eos # (Auto) 0.1 (0.0-0.4) X10*3/uL Baso # (Auto) 0.1 (0.0-0.2) X10*3/uL Abs Immat Gran (auto) 0.08 H (0.00-0.03) X10*3/uL Absolute Neuts (auto) 12.9 H (2.0-8.3) x10*3/uL Absolute Nucleated RBC 0.000 (0.0-0.012) X10*3/uL Nucleated RBC % (auto) 0.0 (0.0-0.2) /100WBC Sodium 136 (135-145) mmol/L Potassium 3.7 (3.3-5.1) mmol/L Chloride 104 (96-108) mmol/L Carbon Dioxide 25 (22-29) mmol/L Anion Gap 11 L (12-20) BUN 6 L (9-16) mg/dL Creatinine 0.49 L (0.5-1.4) mg/dL Estim Creat Clear Calc 162.3 Estimated GFR > 60 Random Glucose 260 H (60-115) mg/dL Lactic Acid 1.0 (0.5-2.0) mmol/L Calcium 9.3 D (8.4-10.2) mg/dL Total Bilirubin 0.5 (0.0-1.0) mg/dL AST 45 H (5-31) U/L ALT 115 H (0-31) U/L Alkaline Phosphatase 209 H (39-117) U/L Total Protein 7.4 (6.5-8.0) g/dL Albumin 4.3 (3.5-5.0) g/dL Independent Interpretation I performed an independent interpretation of an: Plain X-Ray Radiology Impression Discussion of test interpretation with radiology: I have reviewed the radiologist's reading. Radiologist Impression: X-rays from 03/30/2025: Numerous metal rings obscure bony detail at the base of the first, second, third, and fourth proximal phalanges. Small calcification on the right side of the IP joint of thumb is probably chronic. Soft tissue swelling is suspected in the palmar side of the distal third finger. No foreign body or fracture is identifie Independent Historian Clinical information obtained from an independent historian. History obtained from or confirmed by: Spouse Critical Care Time Critical Care Time Critical Care Time: Yes Total Critical Care Time: 75 Attestation: I have personally provided critical care time. Time includes review of lab data, radiology results, discussion with consultants, and monitoring for potential decompensation. Intervention performed as documented. Discharge Plan Discharge Clinical Impression: Abscess of finger, Cellulitis, Tight ring on finger, Hyperglycemia due to type 2 diabetes mellitus Patient Disposition: Admitted As Inpatient Discharge Date/Time: 01/28/25 16:52 Print Language: Vietnamese
--- NOTE | 2025-01-28 13:19 | ECG_ITS ---
Test Reason : tachycardia Blood Pressure : */* mmHG Vent. Rate : 134 BPM Atrial Rate : 134 BPM P-R Int : 150 ms QRS Dur : 72 ms QT Int : 282 ms P-R-T Axes : 52 -64 53 degrees QTcB Int : 421 ms Sinus tachycardia Left axis deviation Septal infarct (cited on or before 08-Jan-2019) Abnormal ECG When compared with ECG of 03-Sep-2024 15:47, No significant change was found Referred By: Thad Mitchell Electronically Signed By: Alberto Couch
[2025-01-28 14:04] LABS: MANUAL DIFF FLAG NO
[2025-01-28 14:07] LABS: Hematocrit 40.3 % (37.0-47.0); Hemoglobin 14.2 g/dl (12.0-16.0); Imm Gran Abs Auto 0.08 X10*3/uL (0.00-0.03); Imm Gran Pct Auto 0.5 % (0.0-0.4); Lymphocytes Absolute Auto 2.7 X10*3/uL (1.2-4.9); Mean Corpuscular HGB Conc 35.2 g/dl (31.0-35.0); Mean Corpuscular Hemoglobin 30.7 pg (27.0-33.0); Mean Corpuscular Volume 87.0 fL (80.0-98.0); NRBC Abs Auto 0.000 X10*3/uL (0.0-0.012); NRBC Pct Auto 0.0 /100WBC (0.0-0.2); Platelet Count 469 X10*3/uL (160-400); Red Blood Count 4.63 X10*6/uL (4.20-5.50); White Blood Count 16.8 X10*3/uL (4.8-10.8)
[2025-01-28 14:21] LABS: Alanine Aminotransferase 115 U/L (0-31); Albumin Level 4.3 g/dL (3.5-5.0); Alkaline Phosphatase 209 U/L (39-117); Anion Gap 11 (12-20); Aspartate Amino Transferase 45 U/L (5-31); Blood Urea Nitrogen 6 mg/dL (9-16); Calcium 9.3 mg/dL (8.4-10.2); Carbon Dioxide 25 mmol/L (22-29); Chloride 104 mmol/L (96-108); Creatinine Clr Calc Pharmacy 162.3; Estimated Glomerular Filt Rate > 60; Potassium 3.7 mmol/L (3.3-5.1); Sodium 136 mmol/L (135-145); Total Protein 7.4 g/dL (6.5-8.0)
--- OUTSIDE RECORDS SUMMARY | 2025-01-28 16:42 | XMS_ITS | Encounter Summary ---
Author Organization [employer] Address [address] [place] [address] [place] [address] Care Team Providers Care Hazardous Materials Waste Technician Name Role Phone Hannah Zhao MD Primary Care Pro vider Jazmine Flowers NP Primary Care Provider [phone] Reason for Visit * Reason Comments Med Refill Encounter Details Date Type Department Care Team ([facility] st Contact Info) Description 03/13/[address] [facility] MEDICINE [address] [place] [address] Hannah Zhao MD [address] [place] [address] Slow gastric motility Social History Tobacco Use [...] motility documented in this encounter Care Teams Hazardous Materials Waste Technician Relationship Specialty Start Date End Date Hannah Zhao MD [address] [place] [address] PCP - General Internal Medicine 01/10/23 07/14/23 Jazmine Flowers NP 230 [place] [address] PCP - General Family Medicine 07/15/23 07/11/24 documented as of this encounter
--- OUTSIDE RECORDS SUMMARY | 2025-01-28 16:42 | XMS_ITS | Encounter Summary ---
Author Organization [employer] Address [address] [place] [address] 7 [place] [address] Care Team Providers Care Lab Technician Name Role Phone Jazmine Flowers NP Primary Care Provider [phone] Reason for Visit * Reason Comments Med Refill Encounter Details Date Type Department Care Team ([facility] st Contact Info) Description 10/11/2023 Refill [facility] MEDICINE [address] [place] [address] Hannah Zhao MD [address] [place] [address] Social History Tobacco Use Types Packs/Day Years Used Date Smoking Tobacco: Never Assessed Housing Stability Answer Date Recorded What is your housing situation today? I do not have housing (Staying with others, in a hotel, in a care home, living outside on the street, on a [...] on filedocumented in this encounter Care Teams Lab Technician Relationship Specialty Start Date End Date Jazmine Flowers NP [address] [place] [address] PCP - General Family Medicine 07/15/23 07/11/24 documented as of this encounter
--- OUTSIDE RECORDS SUMMARY | 2025-01-28 16:42 | XMS_ITS | Encounter Summary ---
Author Organization [employer] Address [address] [place] [address] 7 [place] [address] Care Team Providers Care Engine Buildup Mechanic Name Role Phone Jazmine Flowers NP Primary Care Provider [phone] Reason for Visit * Reason Comments Med Refill Encounter Details Date Type Department Care Team ([facility] st Contact Info) Description 10/24/2023 Refill [facility] MEDICINE [address] [place] [address] Ana Greenberg FNP [address] [place] [address] Social History Tobacco Use Types Packs/Day Years Used Date Smoking Tobacco: Never Assessed Housing Stability Answer Date Recorded What is your housing situation today? I do not have housing (Staying with others, in a hotel, in a [place] [facility], living outside on the street, on a [...] on filedocumented in this encounter Care Teams Engine Buildup Mechanic Relationship Specialty Start Date End Date Jazmine Flowers NP [address] [place] [address] PCP - General Family Medicine 07/15/23 07/11/24 documented as of this encounter
--- OUTSIDE RECORDS SUMMARY | 2025-01-28 16:42 | XMS_ITS | Encounter Summary ---
Author Organization [employer] Address [address] [place] [address] 7 [place] [address] Care Team Providers Care Director Of Clinical Applications Name Role Phone Jazmine Flowers NP Primary Care Provider [phone] Reason for Visit * Reason Comments Med Refill Encounter Details Date Type Department Care Team ([facility] st Contact Info) Description 10/21/2023 Refill [facility] MEDICINE [address] [place] [address] Ana Greenberg FNP [address] [place] [address] Social History Tobacco Use Types Packs/Day Years [...] on filedocumented in this encounter Care Teams Director Of Clinical Applications Relationship Specialty Start Date End Date Jazmine Flowers NP [address] [place] [address] PCP - General Family Medicine 07/15/23 07/11/24 documented as of this encounter
--- OUTSIDE RECORDS SUMMARY | 2025-01-28 16:42 | XMS_ITS | Encounter Summary ---
Author Organization [employer] Address [address] [place] [address] 7 [place] [address] Care Team Providers Care Director Of Convention Services Name Role Phone Jazmine Flowers NP Primary Care Provider [phone] Reason for Visit * Reason Comments Med Refill Encounter Details Date Type Department Care Team ([facility] st Contact Info) Description 10/04/2023 Refill [facility] MEDICINE 230 [place] [address] Ana Greenberg FNP [address] [place] [address] Social History Tobacco Use Types Packs/Day Years Used Date Smoking Tobacco: Never Assessed Housing Stability Answer Date Recorded What is your housing situation today? I do not have housing (Staying with others, in a hotel, in a fdc, living outside on the street, on a [...] in this encounter Care Teams Director Of Convention Services Relationship Specialty Start Date End Date Jazmine Flowers NP [address] [place] [address] PCP - General Family Medicine 07/15/23 07/11/24 documented as of this encounter
--- OUTSIDE RECORDS SUMMARY | 2025-01-28 16:42 | XMS_ITS | Encounter Summary ---
Author Organization [employer] Address [address] [place] [address] 7 [place] [address] Care Team Providers Care Apron Cleaner Name Role Phone Hannah Zhao MD Primary Care Pro vider Jazmine Flowers NP Primary Care Provider [phone] Reason for Visit * Reason Comments Med Refill Encounter Details Date Type Department Care Team ([facility] st Contact Info) Description 05/01/2023 Refill [facility] MEDICINE [address] [place] [address] Ana Greenberg FNP [address] [place] [address] Social History Tobacco Use Types Packs/Day Years [...] on filedocumented in this encounter Care Teams Apron Cleaner Relationship Specialty Start Date End Date Hannah Zhao MD [address] [place] [address] PCP - General Internal Medicine 01/10/23 07/14/23 Jazmine Flowers NP 230 [place] [address] PCP - General Family Medicine 07/15/23 07/11/24 documented as of this encounter
--- OUTSIDE RECORDS SUMMARY | 2025-01-28 16:42 | XMS_ITS | Encounter Summary ---
Author Organization [employer] Address [address] [facility] 7 [place] [address] Care Team Providers Care Sign Erector And Repairer Name Role Phone Jazmine Flowers NP Primary Care Provider [phone] Reason for Visit * Reason Comments Med Refill Encounter Details Date Type Department Care Team ([facility] st Contact Info) Description 08/21/2023 Refill [facility] MEDICINE 230 [place] [address] Hannah Zhao MD [address] [place] [address] Seasonal allergic rhinitis, unspecified trigger Social History [...] trigger documented in this encounter Care Teams Sign Erector And Repairer Relationship Specialty Start Date End Date Jazmine Flowers NP [address] [place] [address] PCP - General Family Medicine 07/15/23 07/11/24 documented as of this encounter
--- OUTSIDE RECORDS SUMMARY | 2025-01-28 16:42 | XMS_ITS | Encounter Summary ---
Author Organization [email or web address] Address [address] [place] [address] Care Team Providers Care Professor Of Violin Name Role Phone Jax Tinajero Primary Care Provider Unavail able Hannah Zhao MD Primary Care Pro vider Jazmine Flowers NP Primary Care Provider [phone] Reason for Visit * Reason Comments Med Refill Encounter Details Date Type Department Care Team (Late st Contact Info) Description 12/13/2022 Refill [facility] MEDICINE 230 [place] [address] Jax Tinajero AGNP Social History Tobacco Use [...] on filedocumented in this encounter Care Teams Professor Of Violin Relationship Specialty Start Date End Date Jax Tinajero AGNP PCP - General Family Medicine 02/08/22 01/09/23 Hannah Zhao MD 230 [place] [address] PCP - General Internal Medicine 01/10/23 07/14/23 Jazmine Flowers NP 230 [place] [address] PCP - General Family Medicine 07/15/23 07/11/24 documented as of this encounter
--- OUTSIDE RECORDS SUMMARY | 2025-01-28 16:42 | XMS_ITS | Data Portability ---
Author Organization [place] [facility], [facility] Address [address] [address] Care Team Providers Care Pole Lift Operator Name Role Phone SINTIA QUINTERO Primary [...] Address Organization Details Recorded Time Chronic rhinitis 57290023 Active 2021 Chronic rhinitis; Note: Date Diagnosed : 09/07/2021 11:28 AM (J31.0) Not Available [facility] 4 03:02:40 Disorder of nasal sinus 3256917 Active 2021 Perforati on of nasal septum NOS; Note: Date Diagnosed : 09/07/2021 11:28 AM (J34.89) Not Available [facility] 4 03:02:41 Disorder of the nose 36312257 Active 2021 Perforati on of nasal septum NOS; Note: Date Diagnosed : 09/07/2021 11:28 AM (J34.89) Not Available [facility] 4 03:02:41 Impacted cerumen of bilateral ears 24291627661 43766 Active 2021 Impacted cerumen, bilateral ; Note: Date Diagnosed : 09/07/2021 11:28 AM (H61.23) Not Available [facility] 4 03:02:41 Perforati on of nasal septum 56687420 Active 2023 PHILLIP SCHAEFER MD [address] [facility],[place] [address], [place], [address] , [facility] - [facility] 4 10:42:01 Abnormal auditory perceptio n 58631445 Active 2023 PHILLIP SCHAEFER MD [address] [facility],[place] [address], [place], [address] , [facility] - [facility] [place] 4 10:42:20 Problem Notes None recorded. Procedures Surgical History Date Name Laterality Status Provider Name and Address Organization Details Recorded Time 03/25/2024 Air & Speech Audio with Tymps - 28983, 32228 & 18070 completed JOSELYN SAEZ [address] [facility],[place] [address], [place], [address], [facility] - [facility] [place] 03/25/2024 11:00:18 Imaging Results None recorded. Procedure Notes None recorded. Medical Equipment None [...] capsule,de layed release active Medicatio n ID: [id number] Br and Name: omeprazol e Send Method: [...] release 24 hr active Medicatio n ID: [id number] Br and Name: metformin Send Method: E-Prescri [...] Updated DateTime 03/25/2024 157.48 cm 23.8 kg/m2 23302.01 g Ck Recinos [place] [facility] 03/25/2024 10:27:28 Social History Question Answer Notes LastModified by Organizat ion Details LastModified Time Tobacco Smoking Status Current Every Day Smoker PHILLIP HO MD [address] [place] [address], [address], [place] [facility] 03/25/2024 10:38:15 What Is Your Current Pack Years? 30ormorepacky ears [email or web address] Information not available 03/25/2024 How Much Tobacco Do You Smoke? 1 PPD [email or web address] Information not available 03/25/2024 Sex: Unknown Functional Status None recorded. Mental Status None recorded. Family History Nothing Reported. Medical History Condition Response Diabetes Y Nasal or Sinus Problems Rhinitis Y GERD/Reflux Y Gynecological HistoryNo gynecological history recorded. Obstetrics History GPAL:G 0 P 0 0 0 0 Past Encounters Encounter ID Performer Location Encounter Start Date Encounter Closed Date Diagnosis/Indication Diagnosis SNOMED-CT Code Diagnosis ICD10 Code Diagnosis IMO Codes Diagnosis Note [id number] PHILLIP SCHAEFER MD [facility] [address] [place] [address] 03/25/2024 10:10:43 03/25/2024 11:13:14 Perforation of nasal septum 29106619 J34.89 Chronic rhinitis 2937696 6 J31.0 Suggest saline lavage with the NeilMed sinus rinse or the powered Navage system. We discussed that there is really no surgical cure for her postnasal drip Impacted c erumen of bilateral ears 2198005902 118591 H61.23 Suggested 3 drops distilled vinegar in each ear twice weekly to prevent the buildup of cerumen Abnormal a uditory perception 18220023 H93.293 Right Ear:Normal hearing with excellent speech discrimina tion.Type A tympanogra m.Left Ear:Normal hearing with excellent speech discrimina tion.Type A tympanogra m. Health Concerns Section Related Observation LastModified by Organization Detai ls LastModified Time None Recorded Concern Status LastModified by Organization Details LastModified Time None Recorded Advance Directives Directive None Recorded Payers Insurance Date Sequence Insurance Name Policy Number Policy Clemens Covered Member ID Clemens Member ID Guarantor Name 03/30/2024 1 [facility] [place]ANT[place] - [place]MO) Monica Wells [id number] Monica Wells 03/30/2024 1 [place] [facility] Monica Wells [id number] Monica Wells 03/30/2024 1 [facility] - DOS ON OR AFTER 2022 - [facility] CARE (MEDICARE REPLACEMENT/AD VANTAGE - HMO) Monica Wells [id number] Monica Wells Notes Date Note Type Note [...] Interested in ear cleaning PHILLIP HO MD [address] [place] [address], [phone], [facility] - [facility] 03/25/2024 13:21:05 OBGyn Episode No OBEpisode recorded.
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
--- OUTSIDE RECORDS SUMMARY | 2025-01-28 16:42 | XMS_ITS | Encounter Summary ---
Author Organization [employer] Address [address] [place] [address] Care Team Providers Care Psychiatric Secretary Name Role Phone Jax Tinajero Primary Care Provider Unavail able Hannah Zhao MD Primary Care Pro vider Jazmine Flowers NP Primary Care Provider [phone] Encounter Details Date Type Department Care Team (Late st Contact Info) Description 12/17/2022 Telephone [facility] MEDICINE [address] [place] [address] Jax Tinajero AGNP Social History Tobacco Use [...] on filedocumented in this encounter Care Teams Psychiatric Secretary Relationship Specialty Start Date End Date Jax Tinajero AGNP PCP - General Family Medicine 02/08/22 01/09/23 Hannah Zhao MD [address] [place] [address] PCP - General Internal Medicine 01/10/23 07/14/23 Jazmine Flowers NP 230 [place] [address] PCP - General Family Medicine 07/15/23 07/11/24 documented as of this encounter
--- OUTSIDE RECORDS SUMMARY | 2025-01-28 16:42 | XMS_ITS | Encounter Summary ---
Author Organization [employer] Address [address] [place] [address] 7 [place] [address] Care Team Providers Care Java J2Ee Lead Name Role Phone Jax Tinajero Primary Care Provider Unavail able Hannah Zhao MD Primary Care Pro vider Jazmine Flowers NP Primary Care Provider [phone] Reason for Visit * Reason Comments Med Refill Encounter Details Date Type Department Care Team (Late st Contact Info) Description 11/06/2022 Refill [facility] [address] [place], [place] [id number] Jax Tinajero AGNP Slow gastric motility Social [...] motility documented in this encounter Care Teams Java J2Ee Lead Relationship Specialty Start Date End Date Jax Tinajero AGNP PCP - General Family Medicine 02/08/22 01/09/23 Hannah Zhao MD [address] [place] [address] PCP - General Internal Medicine 01/10/23 07/14/23 Jazmine Flowers NP [address] [place] [address] PCP - General Family Medicine 07/15/23 07/11/24 documented as of this encounter
--- OUTSIDE RECORDS SUMMARY | 2025-01-28 16:42 | XMS_ITS | Continuity of Care Document ---
Author Organization [facility] [address] [place] [address] Phone [phone] Care Team Providers Care Freight Brake Operator Name Role Phone [facility] Care Team Information Washery Engineer [phone] Problems Active Problems Provider Date Type 2 [...] Social History Type Date Description Comments Sex Female Sex Unknown Lives With Mother Work Status Disabled ETOH Use Denies alcohol use Tobacco Use Start: Unknown Heavy tobacco sm oker (more than 10 cigarettes/day) Allergies and adverse reactions Active Allergies Criticality Reaction Severity Comments Date Bactrim Unable to assess criticality Hives 01/22/2022 Medications Active Medications SIG Qnty Indications Ordering Provider Date Basaglar Ftpztar546Gred/ML Solution Pen-Inject Administer 45 units under the skin daily at bedtime 45ml E11.9 Candace Jhaveri M.D. 05/23/2023 Freestyle Emma 2/Sensor/Flash Glucose Monitoring Qqdfma0Rsxmks Misc Use as directed for testing blood sugars. Replace with new sensor every 14 days. 2units E11.9 Candace Jhaveri M.D. 07/23/2022 Fjjvoxmrnl3hw Tablets Take 1 Tablet By Mouth Three Times Daily as Needed For Anxiety Unknown Terconazole0.4% Cream Apply Vaginally AT Bedtime Once A Day For 7 Days Unknown Simethicone Ultra Roshsszs770we Capsules Take 1 Capsule By Mouth 2-3 Times A Day With Meal And Bedtime Gordon Bruce Seisgcnzgo20fd Capsules DR Take 1 Capsule By Mouth Every Day Before A Meal [facility] Docusate Rqkesj707tf Capsules Take 1 Capsule By Mouth Twice Daily [facility] Metformin HCL AJ463jk Tablets ER 24HR Take 4 Tablets By Mouth AT Bedtime as Directed 120tabs Candace Jhaveri M.D. Sertraline ESY742iu Tablets Take 2 Tablets By Mouth Every Morning Unknown Umvsimrqkrcu2cu Tablets Take 1 Tablet By Mouth Every Morning Unknown Cetirizine QAJ83op Tablets Take 1 Tablet By Mouth Daily Tiffanie Rubin Novolog Qoipuvj227Psup/ML Solution Pen-Inject inject 8-13 units under the skin three times daily as directed 30ml E11.9 Candace Jhaveri M.D. Atorvastatin Eamqaqo17ey Tablets Take 1 Tablet By Mouth Every Day Gordon Bruce Vital Signs Date Vital Result Comment 10/07/2022 4:14pm Heart Rate 100 /min Results Test Acquired Date Facility Test Result H/L Range Note Anti-HBS Quant 10/28/2022 [facility] Anti-HBS Quant 5.7 mIU/mL Low 1 Anti-Hepatitis C 10/28/2022 [facility] Anti-Hepatitis C Non Reactive (Neg) 2 Hep. B Surf. Ag 10/28/2022 [facility] Hep. B Surf. Ag NEGATIVE (Neg) 3 Smooth Muscle AB 10/28/2022 [facility] Smooth Muscle AB 7 4 Anti Mitochondrial Antibody Without Interp 10/28/2022 [facility] Anti Mitochondrial Antibody Without Interp <20.0 5 Iron & Tibc 10/28/2022 [facility] Iron 56 g/dL (30-160) Unsaturated Iro n Binding [place] 392 g/dL High (110-370 ) Est T. Iron Bin d Capacity 448 g/dL (140-530 ) % Iron Saturation 13 % Low (20-55) Mitochondrial AB 10/12/2022 [facility] Mitochondrial AB <pending> Smooth Muscle AB 10/12/2022 [facility] Smooth Muscle AB <pending> Anti-HBS Quant 10/12/2022 [facility] Anti-HBS Quant <pending> Hep. B Surf. Ag 10/12/2022 [facility] Hep. B Surf. Ag <pending> Anti-Hepatitis C 10/12/2022 [facility] Anti-Hepatitis C <pending> Comprehensive Metabolic Panl 10/07/2022 [facility] Glucose 449 mg/dL High [...] M2 6 Complete Abc With Diff 10/07/2022 [facility] WBC 10.4 K/MM3 (4.0-11. [...] Lymph # 3.3 K/MM3 High (0.8-3.1 ) [place]# 0.7 K/MM3 (0.4-0.9 ) Eo # 0.3 K/MM3 (0.0-0.4 ) Baso # 0.1 K/MM3 (0.0-0.1 ) Abs. Imm Gran 0.1 K/MM3 Neut 57.7 % (44-76) Lymph 31.8 % (15-43) Monocyte 6.6 % (4.5-10. 5) Eo 2.8 % (0-6) Baso 0.6 % (0-2) Imm Gran 0.5 % Urinary Microalbumin 10/07/2022 [facility] Micro-Albumin 65.0 mg/L High [...] Consistent with Immunity >9.9 Test performed by [facility], [address] [place] [address] 2 Reference range: Non Reactive (NOTE) HCV antibody alone does not differentiate between previously resolved infection and active infection. Equivocal and Reactive HCV antibody results should be followed up with an HCV RNA test to support the diagnosis of active HCV infection. Test performed by [facility], [address] [place] [address] 3 [facility] performed by [facility], [address] [facility] [place] [address] 4 Reference range: 0 t o 19 Unit: Units (NOTE) Negative 0 - 19 Weak positive 20 - 30 Moderate to strong positive >30 Actin Antibodies are found in 52-85% of patients with autoimmune hepatitis or chronic active hepatitis and in 22% of patients with primary biliary cirrhosis. Test performed by [facility], [address] [facility] [place] [address] 5 Reference range: 0.0 to 20.0 Unit: Units (NOTE) Negative 0.0 - 20.0 Equivocal 20.1 - 24.9 Positive >24.9 Mitochondrial (M2) Antibodies are found in 90-96% of patients with primary biliary cirrhosis. Test performed by [facility], [address] [place] [address] 6 Creatinine based est imated glomerular filtration [...] Reason for Referral Status Appt Hayder e [facility] G[facility]enterology ABNORMAL LIVER FUNCTION Clos ed 07/08/[address] [address] [phone]
--- NOTE | 2025-01-28 16:51 | PC.NURSE ---
Called pt for bed x 2, no answer, patient no longer in dept, LWCT.
== END 2025-01-28 16:52 | disposition admitted as inpatient to this hospital (09) ==
PROVIDERS: Physician Assistant; Emergency Provider Emergency Medicine
DX: L02.511 Cutaneous abscess of right hand (principal); E11.65 Type 2 diabetes mellitus with hyperglycemia; M79.644 Pain in right finger(s)
CPT/HCPCS: 36415; 73140; 80053; 83605; 85025; 87040; 93005; 99283

== ENCOUNTER → 2025-01-28 13:17 | Outpatient (BNV) | payer OTHER, SELFPAY | PROVIDERS: Visit Provider Radiology Diagnostic Radiology | DX: M79.89 Other specified soft tissue disorders (principal); M65.241 Calcific tendinitis, right hand | CPT/HCPCS: 73140 ==

== ENCOUNTER → 2025-01-28 13:19 | Outpatient (BNV) | payer OTHER, SELFPAY | PROVIDERS: Emergency Provider Emergency Medicine; Visit Provider Internal Medicine Cardiovascular Disease | DX: I25.2 Old myocardial infarction (principal); R00.0 Tachycardia, unspecified | CPT/HCPCS: 93010 ==

== ENCOUNTER 2025-01-29 21:54 | Inpatient (IN) | payer OTHER, SELFPAY ==
--- NOTE | 2025-01-29 | ECG_ITS ---
Test Reason : TACHY Blood Pressure : */* mmHG Vent. Rate : 146 BPM Atrial Rate : 146 BPM P-R Int : 138 ms QRS Dur : 76 ms QT Int : 268 ms P-R-T Axes : 57 -73 62 degrees QTcB Int : 417 ms Sinus tachycardia Left axis deviation Septal infarct (cited on or before 08-Jan-2019) Abnormal ECG When compared with ECG of 28-Jan-2025 13:45, No significant change was found Referred By: Generic ED Physician Electronically Signed By: Alberto Couch
--- NOTE | ~2025-01-29 | CT_ITS ---
CLINICAL HISTORY: requested by Ehsan Desai 3rd finger abcess CT right hand with contrast Comparison: None provided Findings: There is mild subcutaneous edema in the 3rd digit and dorsum of the hand. There is no evidence of an abscess. There is no subcutaneous gas. There is no evidence of tenosynovitis. There is no evidence of osteomyelitis. There is no fracture or dislocation. Joint spaces appear normal. IMPRESSION: Mild subcutaneous edema in the 3rd digit and dorsum of the hand suggestive of cellulitis. No evidence of an abscess. This document has been electronically signed by: Andrea Hopkins MD on 01/30/2025 01:58:20
[2025-01-29 21:55] VITALS: BP 142/80; BP 145/87; PULSE 130; PULSE 150; RESP 20; TEMP 37.4; O2SAT 96; O2SAT 98; BMI 22.0
--- NOTE | 2025-01-29 22:07 | PC.NURSE ---
pt biba from home, a&ox4, respirations even and unlabored. pt reports right middle finger has been swollen since friday, reports finger has been increasingly swelling and now ring is now stuck on finger. pt hand noted to be warm and tender to touch. pt finger noted to have swelling and fluid in finger. reports she LWCT yesterday. pt tachycardic. MD Thompson aware
--- OUTSIDE RECORDS SUMMARY | 2025-01-29 22:12 | XMS_ITS | Encounter Summary ---
Author Organization [employer] Address [address] 7 [place] [address] Care Team Providers Care Web Site Administrator Name Role Phone Jazmine Flowers NP Primary Care Provider [phone] Reason for Visit * Reason Comments Med Refill Encounter Details Date Type Department Care Team ([facility] st Contact Info) Description 08/21/2023 Refill [facility] MED[facility]INE [address] [place] [address] Hannah Zhao MD [address] [place] [address] Seasonal allergic rhinitis, unspecified trigger Social History Tobacco Use Types Packs/Day Years Used Date Smoking Tobacco: Never Assessed Housing Stability Answer Date Recorded What is your housing situation today? I do not have housing (Staying with others, in a hotel, in a prison, living outside on the street, on a [...] trigger documented in this encounter Care Teams Web Site Administrator Relationship Specialty Start Date End Date Jazmine Flowers NP [address] [place] [address] PCP - General Family Medicine 07/15/23 07/11/24 documented as of this encounter
--- OUTSIDE RECORDS SUMMARY | 2025-01-29 22:12 | XMS_ITS | Encounter Summary ---
Author Organization [employer] Address [address] [place] [address] 7 [place] [address] Care Team Providers Care Internet Sales Director Name Role Phone Jazmine Flowers NP Primary Care Provider [phone] Reason for Visit * Reason Comments Med Refill Encounter Details Date Type Department Care Team ([facility] st Contact Info) Description 10/24/2023 Refill [facility] MEDICINE [address] [place] [address] Ana Greenberg FNP [address] [place] [address] Social History Tobacco Use Types Packs/Day Years Used Date Smoking Tobacco: Never Assessed Housing Stability Answer Date Recorded What is your housing situation today? I do not have housing (Staying with others, in a hotel, in a penitentiary, living outside on the street, on a [...] on filedocumented in this encounter Care Teams Internet Sales Director Relationship Specialty Start Date End Date Jazmine Flowers NP [address] [place] [address] PCP - General Family Medicine 07/15/23 07/11/24 documented as of this encounter
--- OUTSIDE RECORDS SUMMARY | 2025-01-29 22:12 | XMS_ITS | Encounter Summary ---
Author Organization [employer] Address [address] [place] [address] 7 [place] [address] Care Team Providers Care High Heel Builder Name Role Phone Jazmine Flowers NP Primary Care Provider [phone] Reason for Visit * Reason Comments Med Refill Encounter Details Date Type Department Care Team ([facility] st Contact Info) Description 10/04/2023 Refill [facility] MEDICINE [address] [place] [address] Ana Greenberg FNP [address] [place] [address] Social History Tobacco Use Types Packs/Day Years Used Date Smoking Tobacco: Never Assessed Housing Stability Answer Date Recorded What is your housing situation today? I do not have housing (Staying with others, in a hotel, in a jail, living outside on the street, on a [...] on filedocumented in this encounter Care Teams High Heel Builder Relationship Specialty Start Date End Date Jazmine Flowers NP [address] [place] [address] PCP - General Family Medicine 07/15/23 07/11/24 documented as of this encounter
--- OUTSIDE RECORDS SUMMARY | 2025-01-29 22:12 | XMS_ITS | Encounter Summary ---
Author Organization [employer] Address [address] [place] [address] 7 [place] [address] Care Team Providers Care Regional Service Manager Name Role Phone Hannah Zhao MD Primary Care Pro vider Jazmine Flowers NP Primary Care Provider Reason for Visit * Reason Comments Med Refill Encounter Details Date Type Department Care Team ([facility] st Contact Info) Description 05/01/2023 Refill [facility] MEDICINE [address] [place] [address] Ana Greenberg FNP [address] [place] [address] Social History Tobacco Use Types Packs/Day Years [...] on filedocumented in this encounter Care Teams Regional Service Manager Relationship Specialty Start Date End Date Hannah Zhao MD [address] [place] [address] PCP - General Internal Medicine 01/10/23 07/14/23 Jazmine Flowers NP [address] [place] [address] PCP - General Family Medicine 07/15/23 07/11/24 documented as of this encounter
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
--- OUTSIDE RECORDS SUMMARY | 2025-01-29 22:12 | XMS_ITS | Encounter Summary ---
Author Organization [employer] Address [address] [place] [address] 7 [place] [address] Care Team Providers Care Neurology Director Name Role Phone Jazmine Flowers NP Primary Care Provider [phone] Reason for Visit * Reason Comments Med Refill Encounter Details Date Type Department Care Team ([facility] st Contact Info) Description 10/11/2023 Refill [facility] MEDICINE [address] [place] [address] Hannah Zhao MD [address] [place] [address] Social History Tobacco Use Types Packs/Day Years [...] on filedocumented in this encounter Care Teams Neurology Director Relationship Specialty Start Date End Date Jazmine Flowers NP [address] [place] [address] PCP - General Family Medicine 07/15/23 07/11/24 documented as of this encounter
--- OUTSIDE RECORDS SUMMARY | 2025-01-29 22:12 | XMS_ITS | Encounter Summary ---
Author Organization [employer] Address [address] [place] [address] Care Team Providers Care Machinist Bench Name Role Phone Jax Tinajero Primary Care Provider Unavail able Hannah Zhao MD Primary Care Pro vider Jazmine Flowers NP Primary Care Provider [phone] Encounter Details Date Type Department Care Team (Late st Contact Info) Description 12/17/2022 Telephone [facility] MEDICINE [address] [place] [address] Jax Tinajero AGNP Social History Tobacco Use [...] on filedocumented in this encounter Care Teams Machinist Bench Relationship Specialty Start Date End Date Jax Tinajero AGNP PCP - General Family Medicine 02/08/22 01/09/23 Hannah Zhao MD [address] [place] [address] PCP - General Internal Medicine 01/10/23 07/14/23 Jazmine Flowers NP [address] [place] [address] PCP - General Family Medicine 07/15/23 07/11/24 documented as of this encounter
--- OUTSIDE RECORDS SUMMARY | 2025-01-29 22:12 | XMS_ITS | Continuity of Care Document ---
Author Organization [facility] [address] [place] [address] Phone [phone] Care Team Providers Care Wood Type Finisher Name Role Phone [facility] Care Team Information Mechanical Engineering Specialist [phone] Problems Active Problems Provider Date Type 2 [...] SIG Qnty Indications Ordering Provider Date Basaglar Limgkeg385Cwyn/ML Solution Pen-Inject Administer 45 units under the skin daily at bedtime 45ml E11.9 Candace Jhaveri M.D. 05/23/2023 Freestyle Emma 2/Sensor/Flash Glucose Monitoring Xtopnw8Rmgwnc Misc Use as directed for testing blood sugars. Replace with new sensor every 14 days. 2units E11.9 Candace Jhaveri M.D. 07/23/2022 Bspdsetvzy9gk Tablets Take 1 Tablet By Mouth Three Times Daily as Needed For Anxiety Unknown Terconazole0.4% Cream Apply Vaginally AT Bedtime Once A Day For 7 Days Unknown Simethicone Ultra Kjuwpfbk354hr Capsules Take 1 Capsule By Mouth 2-3 Times A Day With Meal And Bedtime Gordon Bruce Qoqnqhqled07nv Capsules DR Take 1 Capsule By Mouth Every Day Before A Meal [facility] Docusate Msqlvw742wx Capsules Take 1 Capsule By Mouth Twice Daily [facility] Metformin HCL GN995px Tablets ER 24HR Take 4 Tablets By Mouth AT Bedtime as Directed 120tabs Candace Jhaveri M.D. Sertraline UKJ382oa Tablets Take 2 Tablets By Mouth Every Morning Unknown Ljtblaauusvq9ej Tablets Take 1 Tablet By Mouth Every Morning Unknown Cetirizine UNU02ve Tablets Take 1 Tablet By Mouth Daily Tiffanie Rubin Novolog Bpdnqzd502Zmtf/ML Solution Pen-Inject inject 8-13 units under the skin three times daily as directed 30ml E11.9 Candace Jhaveri M.D. Atorvastatin Vihtcgf36ff Tablets Take 1 Tablet By Mouth Every Day Gordon Bruce Vital Signs Date Vital Result Comment 10/07/2022 4:14pm Heart Rate 100 /min Results Test Acquired Date Facility Test Result H/L Range Note Anti-HBS Quant 10/28/2022 [facility] Anti-HBS Quant 5.7 mIU/mL Low 1 Anti-Hepatitis C 10/28/2022 [facility] Anti-Hepatitis C Non Reactive (Neg) 2 Hep. B Surf. Ag 10/28/2022 [facility] Hep. B Surf. Ag NEGATIVE (Neg) 3 Smooth Muscle AB 10/28/2022 [facility] Smooth Muscle AB 7 4 Anti Mitochondrial Antibody Without Interp 10/28/2022 [facility] Anti Mitochondrial Antibody Without Interp <20.0 5 Iron & Tibc 10/28/2022 [facility] Iron 56 g/dL (30-160) Unsaturated Iro n Binding [place] 392 g/dL High (110-370 ) Est T. Iron Bin d Capacity 448 g/dL (140-530 ) % Iron Saturation 13 % Low (20-55) Mitochondrial AB 10/12/2022 [facility] Mitochondrial AB <pending> Smooth Muscle AB 10/12/2022 [facility] Smooth Muscle AB <pending> Anti-HBS Quant 10/12/2022 [facility] Anti-HBS Quant <pending> Hep. B Surf. Ag 10/12/2022 [facility] Hep. B Surf. Ag <pending> Anti-Hepatitis C 10/12/2022 [facility] Anti-Hepatitis C <pending> Comprehensive Metabolic Panl 10/07/2022 [facility] Glucose 449 mg/dL High [...] M2 6 Complete Abc With Diff 10/07/2022 [facility] WBC 10.4 K/MM3 (4.0-11. [...] Lymph # 3.3 K/MM3 High (0.8-3.1 ) [place]# 0.7 K/MM3 (0.4-0.9 ) Eo # 0.3 K/MM3 (0.0-0.4 ) Baso # 0.1 K/MM3 (0.0-0.1 ) Abs. Imm Gran 0.1 K/MM3 Neut 57.7 % (44-76) Lymph 31.8 % (15-43) Monocyte 6.6 % (4.5-10. 5) Eo 2.8 % (0-6) Baso 0.6 % (0-2) Imm Gran 0.5 % Urinary Microalbumin 10/07/2022 [facility] Micro-Albumin 65.0 mg/L High [...] Consistent with Immunity >9.9 Test performed by [facility], [address] [place] [address] 2 Reference range: Non Reactive (NOTE) HCV antibody alone does not differentiate between previously resolved infection and active infection. Equivocal and Reactive HCV antibody results should be followed up with an HCV RNA test to support the diagnosis of active HCV infection. Test performed by [facility], [address] [place] [address] 3 [facility] by [facility], [address] [facility] [place] [address] 4 Reference range: 0 t o 19 Unit: Units (NOTE) Negative 0 - 19 Weak positive 20 - 30 Moderate to strong positive >30 Actin Antibodies are found in 52-85% of patients with autoimmune hepatitis or chronic active hepatitis and in 22% of patients with primary biliary cirrhosis. Test performed by [facility], [address] [facility] [place] [address] 5 Reference range: 0.0 to 20.0 Unit: Units (NOTE) Negative 0.0 - 20.0 Equivocal 20.1 - 24.9 Positive >24.9 Mitochondrial (M2) Antibodies are found in 90-96% of patients with primary biliary cirrhosis. Test performed by [facility], [address] [place] [address] 6 Creatinine based est imated glomerular filtration [...] Reason for Referral Status Appt Hayder e [facility] ABNORMAL LIVER FUNCTION Clos ed 07/08/[address] [address] [phone]
--- OUTSIDE RECORDS SUMMARY | 2025-01-29 22:12 | XMS_ITS | Encounter Summary ---
Author Organization [employer] Address [address] [place] [address] [place] [address] Care Team Providers Care Restaurant Lead Name Role Phone Hannah Zhao MD Primary Care Pro vider Jazmine Flowers NP Primary Care Provider [phone] Reason for Visit * Reason Comments Med Refill Encounter Details Date Type Department Care Team ([facility] st Contact Info) Description 03/13/2023 Refill [facility] MEDICINE [address] [place] [address] Hannah Zhao MD [address] [place] [address] Slow gastric motility Social History Tobacco Use [...] motility documented in this encounter Care Teams Restaurant Lead Relationship Specialty Start Date End Date Hannah Zhao MD [address] [place] [address] PCP - General Internal Medicine 01/10/23 07/14/23 Jazmine Flowers NP [address] [place] [address] PCP - General Family Medicine 07/15/23 07/11/24 documented as of this encounter
--- OUTSIDE RECORDS SUMMARY | 2025-01-29 22:12 | XMS_ITS | Encounter Summary ---
Author Organization [employer] Address [address] [place] [address] 7 [place] [address] Care Team Providers Care Provider Network Analyst Name Role Phone Jax Tinajero Primary Care Provider Unavail able Hannah Zhao MD Primary Care Pro vider Jazmine Flowers NP Primary Care Provider [phone] Reason for Visit * Reason Comments Med Refill Encounter Details Date Type Department Care Team (Late st Contact Info) Description 11/06/2022 Refill [facility] [address] [place] [address] Jax Tinajero AGNP Slow gastric motility Social [...] motility documented in this encounter Care Teams Provider Network Analyst Relationship Specialty Start Date End Date Jax Tinajero AGNP PCP - General Family Medicine 02/08/22 01/09/23 Hannah Zhao MD [address] [place] [address] PCP - General Internal Medicine 01/10/23 07/14/23 Jazmine lFowers NP [address] [place] [id number] PCP - General Family Medicine 07/15/23 07/11/24 documented as of this encounter
--- OUTSIDE RECORDS SUMMARY | 2025-01-29 22:12 | XMS_ITS | Encounter Summary ---
Author Organization [employer] Address [address] [place] [address] 7 [place] [address] Care Team Providers Care Wheel Aligner Name Role Phone Jazmine Flowers NP Primary Care Provider [phone] Reason for Visit * Reason Comments Med Refill Encounter Details Date Type Department Care Team ([facility] st Contact Info) Description 10/21/2023 Refill [facility] [address] [place] [address] Ana Greenberg FNP [address] [place] [address] Social History Tobacco Use Types Packs/Day Years Used Date Smoking Tobacco: Never Assessed Housing Stability Answer Date Recorded What is your housing situation today? I do not have housing (Staying with others, in a hotel, in a skilled nursing, living outside on the street, on a [...] on filedocumented in this encounter Care Teams Wheel Aligner Relationship Specialty Start Date End Date Jazmine Flowers NP [address] [place] [id number] PCP - General Family Medicine 07/15/23 07/11/24 documented as of this encounter
--- OUTSIDE RECORDS SUMMARY | 2025-01-29 22:12 | XMS_ITS | Encounter Summary ---
Author Organization [employer] Address [address] [place] [id number] Care Team Providers Care Aircraft Fueler Name Role Phone Jax Tinajero Primary Care Provider Unavail able Hannah Zhao MD Primary Care Pro vider Jazmine Flowers NP Primary Care Provider [phone] Reason for Visit * Reason Comments Med Refill Encounter Details Date Type Department Care Team (Late st Contact Info) Description 12/13/2022 Refill [facility] [address] [place] [address] Jax Tinajero AGNP Social History Tobacco Use [...] on filedocumented in this encounter Care Teams Aircraft Fueler Relationship Specialty Start Date End Date Jax Tinajero AGNP PCP - General Family Medicine 02/08/22 01/09/23 Hannah Zhao MD [address] [place] [address] PCP - General Internal Medicine 01/10/23 07/14/23 Jazmine Flowers NP [address] [place] [address] PCP - General Family Medicine 07/15/23 07/11/24 documented as of this encounter
--- NOTE | 2025-01-29 22:30 | PC.NURSE ---
IV access established at this time, all labs obtained. pt sinus tachy on tele 140-145 bpm. pt medicated per jul. MD Thompson at bedside.
[2025-01-29 22:31] LABS: Hematocrit 42.8 % (37.0-47.0); Hemoglobin 14.9 g/dl (12.0-16.0); Imm Gran Abs Auto 0.09 X10*3/uL (0.00-0.03); Imm Gran Pct Auto 0.5 % (0.0-0.4); Lymphocytes Absolute Auto 2.6 X10*3/uL (1.2-4.9); MANUAL DIFF FLAG SCAN; Mean Corpuscular HGB Conc 34.8 g/dl (31.0-35.0); Mean Corpuscular Hemoglobin 30.6 pg (27.0-33.0); Mean Corpuscular Volume 87.9 fL (80.0-98.0); NRBC Abs Auto 0.000 X10*3/uL (0.0-0.012); NRBC Pct Auto 0.0 /100WBC (0.0-0.2); Platelet Count 543 X10*3/uL (160-400); Red Blood Count 4.87 X10*6/uL (4.20-5.50); SCAN SMEAR FLAG 1; White Blood Count 17.6 X10*3/uL (4.8-10.8)
[2025-01-29 22:33] VITALS: BP 144/96; PULSE 144; RESP 20
[2025-01-29 22:45] LABS: Alanine Aminotransferase 81 U/L (0-31); Albumin Level 4.8 g/dL (3.5-5.0); Alkaline Phosphatase 227 U/L (39-117); Anion Gap 15 (12-20); Aspartate Amino Transferase 25 U/L (5-31); Blood Urea Nitrogen 11 mg/dL (9-16); Calcium 10.5 mg/dL (8.4-10.2); Carbon Dioxide 26 mmol/L (22-29); Chloride 100 mmol/L (96-108); Creatinine Clr Calc Pharmacy 92.5; Estimated Glomerular Filt Rate > 60; Potassium 3.7 mmol/L (3.3-5.1); Sodium 137 mmol/L (135-145); Total Protein 8.3 g/dL (6.5-8.0)
[2025-01-29 23:25] VITALS: BP 145/78; PULSE 123; RESP 20
--- NOTE | 2025-01-29 23:25 | PC.NURSE ---
pt ring cut off at this time, pt tolerated well. pt offers no complaints at this time. vss
[2025-01-29 23:38] VITALS: BP 140/93; PULSE 120; RESP 15; TEMP 37.2; O2SAT 95
[2025-01-29 23:43] VITALS: BP 155/92; PULSE 122; RESP 20
--- NOTE | 2025-01-30 | ECG_ITS ---
Test Reason : TACHY Blood Pressure : */* mmHG Vent. Rate : 108 BPM Atrial Rate : 108 BPM P-R Int : 160 ms QRS Dur : 88 ms QT Int : 342 ms P-R-T Axes : 56 -48 60 degrees QTcB Int : 458 ms Sinus tachycardia Left axis deviation Septal infarct (cited on or before 08-Jan-2019) Abnormal ECG When compared with ECG of 29-Jan-2025 22:11, No significant change was found Referred By: Rula Thompson Electronically Signed By: Alberto Couch
--- NOTE | 2025-01-30 00:09 | ED_ITS ---
HPI - Skin/Abscess/Foreign Bdy General Chief complaint: Skin/Abscess/Foreign Body Stated complaint: swollen middle finger w/ ring on it Time Seen by Provider: 01/29/25 22:07 Source: patient Mode of arrival: ambulatory Limitations: no limitations History of Present Illness ED Provider: Dr. Rula Thompson HPI narrative: patient comes to the emergency room complaining of right middle finger swelling pain and pus accumulation. Patient states that the swelling and the pain started yesterday. Patient came to the emergency room but decided to leave without being seen. Today, the swelling and the pain got much worse and decided to stay. patient denies fever chills. Patient states that the ring in her middle finger in the right hand is very tight and hurts quite a bit. patient states that the swelling startedGetting worse earlier this morning. Related Data Previous Rx's ?Medication ?Instructions ?Recorded blood sugar diagnostic (Accu-Chek #100 ea 09/03/24 Shwetha Plus test strips) blood-glucose meter (Accu-Chek #1 ea 09/03/24 Guide Glucose Meter) cephalexin 500 mg capsule 500 mg PO Q12H #14 caps 06/29 doxycycline hyclate 100 mg capsule 100 mg PO BID #14 c aps 09/03/24 insulin lispro 100 unit/mL 1 sliding scale dose subcut 09/03/24 subcutaneous pen (Humalog KwikPen USEASDIRECTD #15 mL (U-100) Insulin) lancets-blood glucose test #1 ea 09/03/24 strips-pen needles with gauze kit pen needle, diabetic 32 gauge x #100 ea 09/03/24 (Pen Needle) tramadol 50 mg tablet 50 mg PO BID PRN pain #7 tab s 09/03/24 Allergies Allergy/AdvReac Type Severity Reaction Status Date / Time sulfamethoxazole (From Allergy Severe HIVES Verified 01/29/25 22:02 BACTRIM) trimethoprim (From BACTRIM) Allergy Severe HIVES Verified 01/29/25 22:02 bee pollen (BEE STINGS) Allergy Unknown UNKNOWN Verified 01/29/25 22:02 NSAIDS (Non-Steroidal Allergy Unknown BLEEDING Verified 01/29/25 22:02 Anti-Inflamma (NSAIDS ULCERS (NON-STEROIDAL ANTI-INFLAMMA) Review of Systems 2 Review of Systems: Constitutional : No Weight loss, No Fever, No Chills, No Night Sweats, No Fatigue, No Malaise ENT/Mouth : No Hearing loss, No Ear Pain, No Nasal Congestion, No Sinus Pain, No Hoarseness, No sore throat, No Rhinorrhea, No Swallowing Difficulty Eyes: No Eye Pain, No Swelling, No Redness, No Foreign Body, No Discharge, No Vision Changes Cardiovascular : No Chest Pain, No SOB, No Dyspnea on Exertion, No Orthopnea, No Edema, No Palpitations Respiratory : No Cough, No Sputum, No Wheezing, No Smoke Exposure, No Dyspnea Gastrointestinal : No Nausea, No Vomiting, No Diarrhea, No Constipation, No abdominal Pain, No Hematochezia, No Melena Genitourinary : no irregular bleeding, No Dysuria, No Urinary Frequency, No Hematuria, No Urinary Incontinence, No Urgency, No Flank Pain, No Urinary Flow Changes, No Hesitancy Musculoskeletal : No joint pain, No Myalgias, No Joint Swelling Skin : Complaining of right middle finger swelling, pus accumulation, finger swelling, finger ring tightness Neuro : No Weakness, No Numbness, No Paresthesias, No Loss of Consciousness, No Dizziness, No Headache Psych : No Anxiety/Panic, No Depression, No SI/HI/AH/VH, No Social Issues, Heme/Lymph: No Bruising, No Bleeding,No Lymphadenopathy Endocrine : No Polyuria, No Polydipsia, No Temperature Intolerance [facility] Past Medical History Medical History Polysubstance abuse Diabetes Type 2 diabetes mellitus Social History Social History Smoked in Last 30 Days: Yes Use of substances other than those prescribed or required for medical reasons: No Advance Directives: No Advance Directives Information Provided: No Do you have a plan to hurt others: No Plan Patient : No Physical Exam 2 Exam: Exam: Appearance: Alert. Oriented X3. No acute distress. Eyes: Pupils equal, round and reactive to light. ENT: Pharynx normal. Neck: Normal inspection. Neck supple. No lymph nodes noted. No crepitus CVS: Normal heart rate and rhythm. Pulses normal. Normal S1 and S2 Respiratory: No respiratory distress. Breath sounds normal. No Wheezing. No rales Abdomen: Soft and nontender. No rigidity. No distention. Skin: Skin warm and dry. Normal skin color. Normal skin turgor. see extremities below Extremities: No lower extremity edema. . On the right hand, patient's right middle finger has a large collection of pus. Patient is very tender to touch, very swollen, the ring around the finger is very tight finger erythematous . Patient has streaking erythema all th e way up to the axilla, patient has palpable lymphadenopathy in the right axilla. After the ring was removed, patient has full flexion and extension of all digits including the right middle finger Neuro: Oriented X 3. No motor deficit. No sensory deficit. Moving all extremities. No slurred speech. CN 2 through 12 grossly intact Psych: calm, cooperative, normal affect Vital Signs: Vital Signs: Last Vital Signs Temp 98.9 F 01/29/25 23:38 Pulse 122 H 01/29/25 23:43 Resp 20 01/29/25 23:43 BP 155/92 H 01/29/25 23:43 Pulse Ox 95 01/29/25 23:38 O2 Del Method Room Air 01/29/25 23:38 BMI result Body Mass Index 22.0 Course Course Course Narrative: Patient came yesterday to the emergency room complaining of an abscess in the 3rd finger of the right hand. Patient left without being seen. Today, patient presents to the ED with worsening symptoms the ring in the middle finger has been very tight for more than 36 hours. patient was a bit reluctant about having to remove the ring in her middle finger. Patient tried to convince him to let her keep the ring in her finger until the swelling went down. However, I discussed with the patient that the bring in her middle finger on the right hand was too tight and was actually compromising the blood supply to the Finger. To release some of the pressure, patient's finger was placed in ice cold water with Betadine To help initially reduce the swelling. With an 11 size blade, I was able to make a very small incision in the callus of the abscess, a large amount of pus was drained. Then, we attempted to remove the ring by threading dental floss between the ring and the patient's finger and wrapping the posterior aspect of the finger with the dental floss. The finger was wrapped for no more than 2 minutes. However, the finger was too swollen. The dental floss was removed. with this maneuver, we were able to reduce the swelling around the ring to have enough placed to insert the ring cutter between the patient's finger and ring to be able to cut it. Otherwise, it would have been impossible to insert the ring cutter. overall, it took a proximally 1 hour of trying different approaches to rule finally remove the ring Medications Administered Discontinued Medications Generic Name Dose Route Start Last Admin Trade Name Debora PRN Reason Stop Dose Admin Sodium Chloride 2,000 mls @ 999 mls/hr 01/29/25 22:17 01/29/25 23:31 Ns IVCONT 01/30/25 00:17 Infused .Q2H1M ONE Infusion Vancomycin HCl 1,250 mg/ 250 mls @ 166.667 mls/hr 01/29/25 23:22 01/30/25 00:25 Sodium Chloride IV 01/30/25 00:51 166.67 mls/hr ONCE ONE Administration Piperacillin Sod/Tazobactam 50 mls @ 100 mls/hr 01/29/25 23:22 01/30/25 00:07 Sod 3.375 gm/ Sodium Chloride IV 01/29/25 23:51 Infused ONCE ONE Infusion Iohexol 85 ml 01/30/25 00:56 01/30/25 00:56 Iohexol 350 Mg/Ml 100 Ml Infus..Btl IV 01/30/25 00:57 85 ml ONCE ONE Administration Lorazepam 2 mg 01/29/25 22:17 01/29/25 22:27 Lorazepam 1 Mg Tablet PO 01/29/25 22:18 2 mg ONCE ONE Administration Tramadol HCl 50 mg 01/29/25 22:17 01/29/25 22:27 Tramadol Hcl 50 Mg Tablet PO 01/29/25 22:18 50 mg ONCE ONE Administration Medical Decision Making Medical Decision Making [facility] Narrative: my interpretation of labs: My interpretation of labs scan patient's white blood cell count 17.6, lactic acid normal, no significant abnormality patient's chemistry other than a glucose of 320, LFTs slightly elevated chronically x-ray of the hand/finger from yesterday: swollen, no obvious signs of osteomyelitis we asked the patient to keep her hand in cold IC water with Betadine to help reduce the swelling and help with the infection with an 11 size blade, a small incision was made over the callus of the abscess in the finger, a very large amount of pus was drained, almost no blood then, we attempted wrapping the patient's finger with dental floss to attempt to remove the ring. However, the swelling was significant in the ring did not go through. We had to use a ring cutter to cut the patient's ring patient's glucose elevated, given IV fluids 2L NS and insulin 5 units patient does not have any fever, no episodes of hypotension, normal lactic, sepsis is not suspected. Patient was started on vanco and Zosyn. For unclear reasons, patient's nurse was able to see the order, but there was a system glitch and the antibiotics and fluids do not appear as ordered , but they were both administered. CT scan has been done, Radiology report in progress. patient states that her finger feels much better, patient states that she is regaining the movement of her finger and the pain has significantly decreased. Patient has not received any additional pain medication 02:00: Were still waiting for the CT scan result. Patient reports that her hand feels much better, patient denies now able to flex completely and make a fist with her right hand. patient states that she is not experiencing any pain at this time and does not require any additional pain medication. CT scan of the hand shows mild subcutaneous edema consistent with cellulitis, no gas, no signs of osteomyelitis, no abscess. Patient remains pain-free at this time, able to flex and extend all digits of the hand. At baseline, patient does have some trouble opening and closing the 2nd and 4th digits due to a previous accident. Patient states that her has not movements at this time are at baseline I discussed the patient with Dr. Dao, patient needs admission. Differential Diagnosis Differential Diagnoses: The differential diagnosis associated with the presentation includes ( cellulitis, abscess, tenosynovitis) Admission/Observation Consideration of admission/observation: Escalation of care including admission/observation considered Consult Healthcare Provider Management of the patient was discussed with: Hospitalist Lab Data [facility] Lab Attestation statement: I reviewed the patient's lab results. 01/29/25 22:23 01/29/25 22:23 Labs: Lab Results 01/29/25 Range/Units 22:23 WBC 17.6 H (4.8-10.8) X10*3/uL RBC 4.87 (4.20-5.50) X10*6/uL Hgb 14.9 (12.0-16.0) g/dl Hct 42.8 (37.0-47.0) % MCV 87.9 (80.0-98.0) fL MCH 30.6 (27.0-33.0) pg MCHC 34.8 (31.0-35.0) g/dl RDW 12.9 (11.0-16.0) % Plt Count 543 H (160-400) X10*3/uL MPV 9.5 (9.4-12.3) fL Immature Gran % (Auto) 0.5 H (0.0-0.4) % Neut % (Auto) 73.8 H (45-73) % Lymph % (Auto) 14.9 L (20-40) % Emery % (Auto) 9.9 (2-11) % Eos % (Auto) 0.6 (0-4) % Baso % (Auto) 0.3 (0-2) % Lymph # (Auto) 2.6 (1.2-4.9) X10*3/uL Emery # (Auto) 1.7 H (0.1-1.2) X10*3/uL Eos # (Auto) 0.1 (0.0-0.4) X10*3/uL Baso # (Auto) 0.1 (0.0-0.2) X10*3/uL Abs Immat Gran (auto) 0.09 H (0.00-0.03) X10*3/uL Absolute Neuts (auto) 13.0 H (2.0-8.3) x10*3/uL Absolute Nucleated RBC 0.000 (0.0-0.012) X10*3/uL Nucleated RBC % (auto) 0.0 (0.0-0.2) /100WBC Smear Tech's Comments VERIFIED Sodium 137 (135-145) mmol/L Potassium 3.7 (3.3-5.1) mmol/L Chloride 100 (96-108) mmol/L Carbon Dioxide 26 (22-29) mmol/L Anion Gap 15 (12-20) BUN 11 (9-16) mg/dL Creatinine 0.54 (0.5-1.4) mg/dL Estim Creat Clear Calc 92.5 Estimated GFR > 60 Random Glucose 320 H (60-115) mg/dL Lactic Acid 1.2 (0.5-2.0) mmol/L Calcium 10.5 H D (8.4-10.2) mg/dL Total Bilirubin 0.6 (0.0-1.0) mg/dL Direct Bilirubin 0.3 (0.0-0.5) mg/dL AST 25 (5-31) U/L ALT 81 H (0-31) U/L Alkaline Phosphatase 227 H (39-117) U/L Total Protein 8.3 H (6.5-8.0) g/dL Albumin 4.8 (3.5-5.0) g/dL Independent Interpretation I performed an independent interpretation of an: Plain X-Ray Radiology Impression Discussion of test interpretation with radiology: I have reviewed the radiologist's reading. Radiologist Impression: X-rays from 03/30/2025: Numerous metal rings obscure bony detail at the base of the first, second, third, and fourth proximal phalanges. Small calcification on the right side of the IP joint of thumb is probably chronic. Soft tissue swelling is suspected in the palmar side of the distal third finger. No foreign body or fracture is identifie Independent Historian Clinical information obtained from an independent historian. History obtained from or confirmed by: Spouse Chronic Conditions Patient?s care impacted by: Diabetes Critical Care Time Critical Care Time Critical Care Time: Yes Total Critical Care Time: 90 Attestation: I have personally provided critical care time. Time includes review of lab data, radiology results, discussion with consultants, and monitoring for potential decompensation. Intervention performed as documented. Discharge Plan Discharge Clinical Impression: Tight ring on finger, Hyperglycemia due to type 2 diabetes mellitus, Diabetes, Abscess of finger, Cellulitis Patient Disposition: Admitted As Inpatient Print Language: Kinyarwanda
[2025-01-30] MEDS: iohexoL 350 MG/ML 100 ML INFUS..BTL 85 ML IV (00:56)
[2025-01-30 03:47] VITALS: BP 127/80; PULSE 140; RESP 16; TEMP 36.8; O2SAT 96
--- NOTE | 2025-01-30 03:50 | PC.NURSE ---
pt noted to be tachycardic at this time, 120-140bpm, MD Thompson aware, no new orders.
--- NOTE | 2025-01-30 04:24 | PM.IMHP ---
History of Present Illness Date of Service: 01/30/25 Attending physician on admission: Aden Dao Chief Complaint: Hand cellulitis Patient is a 49-year-old female with a past medical history significant for new diagnosis of type 2 diabetes, who presented to the ED due to right middle finger swelling and pain for the past few days. The patient reports the swelling started on Friday and has progressively been worsening, she reported to the ED when she was unable to get her ring off and was having significant pain. She denies any injury or trauma to the finger is unsure why this began. Patient reports that she was recently diagnosed with diabetes in the started on sliding scale insulin, Lantus and metformin however she is no longer taking anything as she is switching PCPs. She is unsure for Lantus dose but reports she was taking the sliding scale and metformin. She denies any systemic symptoms including fever, chills, nausea or vomiting. In the ED the patient's ring was cut off, I and D of superficial abscess on the right middle finger. The patient reports that her pain has improved but is still present. 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 Review of Systems Constitutional: Constitutional: Denies body ache(s), Denies chills, Denies fatigue, Denies fever(s) and Denies headache(s) Eyes: Eyes: Denies change in vision ENT: Denies headache(s), Denies nasal congestion and Denies sore throat Cardiovascular: Cardiovascular: Denies chest pain, Denies rapid heart rate, Denies leg edema, Denies lightheadedness and Denies dyspnea Respiratory: Respiratory: Denies chest congestion, Denies cough, Denies dyspnea and Denies wheezing Gastrointestinal: Gastrointestinal: Denies abdominal pain, Denies nausea and Denies vomiting Genitourinary: Genitourinary: Denies dysuria and Denies urinary urgency Musculoskeletal: Musculoskeletal: Denies back pain and Denies myalgias Integumentary/Breasts: Skin/Breast: Reports as per HPI and Denies rash Neurologic: Denies confusion and Denies headache(s) Psychiatric: Psychiatric: Denies confusion Endocrine: Endocrine: Denies fatigue Hematologic/Lymphatic: Hematologic/Lymphatic: Denies easy bleeding and Denies easy bruising Allergic/Immunologic: Allergic/Immunologic: Denies wheezing [facility] Medical History Polysubstance abuse Diabetes Type 2 diabetes mellitus Functional capacity: independent ambulation Social History Patient Tobacco Use Status: Current everyday Tobacco user Smoked in Last 30 Days: Yes Use of substances other than those prescribed or required for medical reasons: No Advance Directives: No Advance Directives Information Provided: No Do you have a plan to hurt others: No Plan Nutrition Risks: No Nutritional Risk Patient : No Narrative: Smokes 1 pack per day, denies alcohol or drug use Meds Allergies Allergy/AdvReac Type Severity Reaction Status Date / Time sulfamethoxazole (From Allergy Severe HIVES Verified 01/29/25 22:02 BACTRIM) trimethoprim (From BACTRIM) Allergy Severe HIVES Verified 01/29/25 22:02 bee pollen (BEE STINGS) Allergy Unknown UNKNOWN Verified 01/29/25 22:02 NSAIDS (Non-Steroidal Allergy Unknown BLEEDING Verified 01/29/25 22:02 Anti-Inflamma (NSAIDS ULCERS (NON-STEROIDAL ANTI-INFLAMMA) Active Medications: Current Medications Acetaminophen (Acetaminophen 325 Mg Tablet) 650 mg PO Q6H PRN PRN Reason: Pain, Mild 1-3,fever,headache Calcium Carbonate (Calcium Carbonate 750 Mg Tab.Chew) 750 mg PO Q4H PRN PRN Reason: Heartburn Enoxaparin Sodium (Enoxaparin Sodium 40 Mg/0.4 Ml Syringe) 40 mg SUBCUT Q24H [facility] Piperacillin Sod/Tazobactam (Sod 3.375 gm/ Sodium Chloride) 50 mls @ 100 mls/hr IV Q6H [facility] Magnesium Hydroxide (Milk Of Magnesia 30 Ml Oral.Susp) 30 ml PO DAILY PRN PRN Reason: Constipation Melatonin (Melatonin 3 Mg Tablet) 6 mg PO BEDTIME PRN PRN Reason: Insomnia Ondansetron HCl (Ondansetron Hcl 4 Mg/2 Ml Vial) 4 mg IVPUSH Q8H PRN PRN Reason: Nausea and Vomiting Oxycodone HCl (Oxycodone Hcl Immed Release 5 Mg Tablet) 5 mg PO Q6H PRN PRN Reason: Pain, Severe (Pain Scale 7-10) Sodium Chloride (0.9 % Sodium Chloride Flush 3 Ml Syringe) 3 ml IVFLUSH QSHIFT [facility] Tramadol HCl (Tramadol Hcl 50 Mg Tablet) 50 mg PO Q6H PRN PRN Reason: Pain, Moderate(Pain Scale 4-6) Physical Exam Vital Signs and Narrative: Vital Signs: Last Vital Signs Temp 98.3 F 01/30/25 03:47 Pulse 140 H 01/30/25 03:47 Resp 16 01/30/25 03:47 BP 127/80 01/30/25 03:47 Pulse Ox 96 01/30/25 03:47 O2 Del Method Room Air 01/30/25 03:47 BMI result Body Mass Index 22.0 General: AOx3, no acute distress, seen with bedside Resp: CTA bilaterally CVS: S1, S2, RRR GI: +BS, NT, no distention Skin: Warm, dry. R middle finger with significant bruising, increased warmth, no active drainage. streaking up R UE medially Neuro: Cranial nerves II-XII grossly intact bilaterally. Motor grossly intact bilaterally Extremities: No pitting edema Psych: Appropriate affect Const: General: No confusion Orientation/consciousness: No confusion Neuro: General: No confusion Results Labs 01/30/25 04:50 01/30/25 04:50 Labs: Laboratory Results - last 24 hr 01/29/25 22:23 MCV 87.9 MCH 30.6 MCHC 34.8 RDW 12.9 Plt Count 543 H MPV 9.5 Immature Gran % (Auto) 0.5 H Neut % (Auto) 73.8 H Lymph % (Auto) 14.9 L [place] % (Auto) 9.9 Eos % (Auto) 0.6 Baso % (Auto) 0.3 Lymph # (Auto) 2.6 [place] # (Auto) 1.7 H Eos # (Auto) 0.1 Baso # (Auto) 0.1 Abs Immat Gran (auto) 0.09 H Absolute Neuts (auto) 13.0 H Absolute Nucleated RBC 0.000 Nucleated RBC % (auto) 0.0 Smear Tech's Comments VERIFIED Anion Gap 15 Estim Creat Clear Calc 92.5 Estimated GFR > 60 Random Glucose 320 H Lactic Acid 1.2 Calcium 10.5 H D Total Bilirubin 0.6 Direct Bilirubin 0.3 AST 25 ALT 81 H Alkaline Phosphatase 227 H Total Protein 8.3 H Albumin 4.8 Assessment and Plan (1) Sepsis: Status: Acute (2) Abscess of finger: Status: Acute (3) Cellulitis: Status: Acute (4) Tight ring on finger: Status: Acute Plan Patient is a 49-year-old female with a past medical history significant for new diagnosis of type 2 diabetes, who presented to the ED due to right middle finger swelling and pain for the past few days. cellulitis on CT and superficial abcess was drained in ED sepsis, abscess/cellulitis R middle finger with streaking up RUE, celluliits on CT - vancomycin and zosyn - ortho consult - monitor CBC and BMP T2DM - sliding scale insulin - pt unsure of lantus dose - hold metformin tobacco use disorder - NRT - RT smoking cessation med rec pending full code VTE prophy: lovenox Pt with abscess/cellulitis R middle finger with evidence of spreading on exam, requiring admission for at least 2 midnights stay for IV abx, specialist consultation and monitoring. Quality Stroke Does the patient have a stroke diagnosis?: No VTE Prior VTE?: No VTE Risk Level:: Medical - moderate - high VTE Device Contraindication: Treatment Not Indicated VTE Drug Contraindication: N/A - Med Ordered
[2025-01-30 04:55] LABS: Hematocrit 37.8 % (37.0-47.0); Hemoglobin 13.1 g/dl (12.0-16.0); Imm Gran Abs Auto 0.07 X10*3/uL (0.00-0.03); Imm Gran Pct Auto 0.4 % (0.0-0.4); Lymphocytes Absolute Auto 2.7 X10*3/uL (1.2-4.9); MANUAL DIFF FLAG NO; Mean Corpuscular HGB Conc 34.7 g/dl (31.0-35.0); Mean Corpuscular Hemoglobin 30.2 pg (27.0-33.0); Mean Corpuscular Volume 87.1 fL (80.0-98.0); NRBC Abs Auto 0.000 X10*3/uL (0.0-0.012); NRBC Pct Auto 0.0 /100WBC (0.0-0.2); Platelet Count 468 X10*3/uL (160-400); Red Blood Count 4.34 X10*6/uL (4.20-5.50); White Blood Count 15.8 X10*3/uL (4.8-10.8)
[2025-01-30 05:24] LABS: Anion Gap 11 (12-20); Blood Urea Nitrogen 9 mg/dL (9-16); Calcium 8.7 mg/dL (8.4-10.2); Carbon Dioxide 22 mmol/L (22-29); Chloride 106 mmol/L (96-108); Creatinine Clr Calc Pharmacy 90.8; Estimated Glomerular Filt Rate > 60; Potassium 4.0 mmol/L (3.3-5.1); Sodium 135 mmol/L (135-145)
[2025-01-30 06:12] VITALS: BP 131/83; PULSE 113; RESP 16; TEMP 36.4; O2SAT 95
[2025-01-30 07:21] LABS: Glucose, Whole Blood 325 mg/dL (60-115)
--- NOTE | 2025-01-30 07:21 | PC.NURSE ---
Addendum entered by Shelbi Norwood RN 01/30/25 08:03: Patient is a 49-year-old female with a past medical history significant for new diagnosis of type 2 diabetes, who presented to the ED due to right middle finger swelling and pain for the past few days. The patient reports the swelling started on Friday and has progressively been worsening, she reported to the ED when she was unable to get her ring off and was having significant pain. She denies any injury or trauma to the finger is unsure why this began. Patient reports that she was recently diagnosed with diabetes in the started on sliding scale insulin, Lantus and metformin however she is no longer taking anything as she is switching PCPs. Patient alert and oriented. Respirations even and non-labored. Abdomen flat, soft, non-tender with positive bowel sounds. Positive pedal pulses with no edema. Right 3rd finger swollen, red and purple in coloration with redness spreading to top of hand. Positive radial pulses with good CSM. Original Note: Medical History Polysubstance abuse Diabetes Type 2 diabetes mellitus
[2025-01-30] MEDS: 0.9 % Sodium Chloride Flush 3 ML SYRINGE IVFLUSH ×2 (07:50→12:08)
[2025-01-30] MEDS: Insulin Glargine,Hum.rec.anlog 100 UNIT/ML 10 ML VIAL 15 UNIT SUBCUT ×2 (08:00→19:46)
[2025-01-30 09:38] VITALS: BMI 22.0
[2025-01-30 09:44] VITALS: BP 139/87; PULSE 141; RESP 16; TEMP 36; O2SAT 99
--- NOTE | 2025-01-30 09:55 | P.CONOP_ITS ---
History of Present Illness HPI Consult date: 01/30/25 Chief complaint: cellulitis Narrative: 49-year-old female with a past medical history significant for new diagnosis of type 2 diabetes which is poorly managed, who presented to the ED due to right middle finger swelling and pain for the past few days. The patient reports the swelling started on Friday and has progressively been worsening, she reported to the ED when she was unable to get her ring off and was having significant pain. She denies any injury or trauma to the finger is unsure why this began. Patient reports that she was recently diagnosed with diabetes in the started on sliding scale insulin, Lantus and metformin however she is no longer taking anything as she is switching PCPs. In the ED the patient's ring was cut off, I and D of superficial abscess on the right middle finger. The patient reports that her pain has improved but is still present. 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 Of note, she denies alcohol use. States she does smoke tobacco, Denies recreation or ilicit drug use; however in 06/06/2023 she tested positive for cocaine Review of Systems 2 Review of Systems: Yes all other systems are reviewed and are negative PMFSH Past Medical History Medical History Polysubstance abuse Diabetes Type 2 diabetes mellitus Social History Social History Household Members: Significant Other Housing: Apartment Do you presently have visiting nurse or other home services: Yes Patient Tobacco Use Status: Current everyday Tobacco user Smoked in Last 30 Days: Yes Patient Interested in Nicotine Replacement: Yes Use of substances other than those prescribed or required for medical reasons: No Do you feel safe in your current relationship?: Yes Advance Directives: No Advance Directives Information Provided: No Do you have a plan to hurt others: No Plan Nutrition Risks: No Nutritional Risk Patient : No : No Poor oral hygiene: No Meds Allergies Allergy/AdvReac Type Severity Reaction Status Date / Time sulfamethoxazole (From Allergy Severe HIVES Verified 01/29/25 22:02 BACTRIM) trimethoprim (From BACTRIM) Allergy Severe HIVES Verified 01/29/25 22:02 bee pollen (BEE STINGS) Allergy Unknown UNKNOWN Verified 01/29/25 22:02 NSAIDS (Non-Steroidal Allergy Unknown BLEEDING Verified 01/29/25 22:02 Anti-Inflamma (NSAIDS ULCERS (NON-STEROIDAL ANTI-INFLAMMA) Active Medications: Current Medications Acetaminophen (Acetaminophen 325 Mg Tablet) 650 mg PO Q6H PRN PRN Reason: Pain, Mild 1-3,fever,headache Calcium Carbonate (Calcium Carbonate 750 Mg Tab.Chew) 750 mg PO Q4H PRN PRN Reason: Heartburn Dextrose (Dextrose 50 % 25 Gm/50 Ml Syringe) 25 gm IVPUSH Q15M PRN; Protocol PRN Reason: per Hypoglycemia Standing Ord. Enoxaparin Sodium (Enoxaparin Sodium 40 Mg/0.4 Ml Syringe) 40 mg SUBCUT Q24H [facility] Last Admin: 01/30/25 05:10 Dose: Not Given Glucose (Glucose Gel 15 Gm Gel..Gram.) 15 gm PO Q15M PRN; Protocol PRN Reason: per Hypoglycemia Standing Ord. Piperacillin Sod/Tazobactam (Sod 3.375 gm/ Sodium Chloride) 50 mls @ 100 mls/hr IV Q6H [facility] Last Admin: 01/30/25 09:48 Dose: 100 mls/hr Vancomycin HCl 1,000 mg/ (Sodium Chloride) 270 mls @ 270 mls/hr IV Q12H [facility] Insulin Glargine (Insulin Glargine,Hum.Rec.Anlog 100 Unit/Ml 10 Ml Vial) 15 unit SUBCUT Q12H [facility] Last Admin: 01/30/25 08:00 Dose: 15 unit Insulin Human Lispro (Insulin Lispro 100 Unit/Ml 3 Ml Vial) 0 unit SUBCUT QIDACHS [facility]; Protocol Last Admin: 01/30/25 07:49 Dose: 8 unit Magnesium Hydroxide (Milk Of Magnesia 30 Ml Oral.Susp) 30 ml PO DAILY PRN PRN Reason: Constipation Melatonin (Melatonin 3 Mg Tablet) 6 mg PO BEDTIME PRN PRN Reason: Insomnia Metformin HCl (Metformin Hcl 500 Mg Tablet) 500 mg PO BIDWM [facility] Last Admin: 01/30/25 08:02 Dose: Not Given Ondansetron HCl (Ondansetron Hcl 4 Mg/2 Ml Vial) 4 mg IVPUSH Q8H PRN PRN Reason: Nausea and Vomiting Oxycodone HCl (Oxycodone Hcl Immed Release 5 Mg Tablet) 5 mg PO Q6H PRN PRN Reason: Pain, Severe (Pain Scale 7-10) Pharmacy Consult (Consult Rx Vancomycin Dosing) 1 each MISCELLANE DAILY PRN PRN Reason: Consult order Sodium Chloride (0.9 % Sodium Chloride Flush 3 Ml Syringe) 3 ml IVFLUSH QSHIFT [facility] Last Admin: 01/30/25 07:50 Dose: 3 ml Tramadol HCl (Tramadol Hcl 50 Mg Tablet) 50 mg PO Q6H PRN PRN Reason: Pain, Moderate(Pain Scale 4-6) Home Medications ?Medication ?Instructions ?Recorded ?Confirmed ?Last Taken ?Type [id number] 800 mcg-alpha 1 cap PO DAILY 01/30/25 01/30/25 01/29/25 History alipoic acid 150 mg-co Q10 50 mg capsule (Diabetic Vitamin) omeprazole 20 mg tablet,delayed 40 mg PO DAILY@0630 01/30/25 01/29/25 History release Physical Exam 2 Vital Signs: Vital Signs: Last Vital Signs Temp 96.8 F 01/30/25 09:44 Pulse 141 H 01/30/25 09:44 Resp 16 01/30/25 09:44 BP 139/87 01/30/25 09:44 Pulse Ox 99 01/30/25 09:44 O2 Del Method Room Air 01/30/25 09:44 BMI result Body Mass Index 22.0 Const: General: cooperative, healthy appearing, comfortable and no acute distress Extrem: Other: Picture taken o 01/29/25 in the ED On 01/30/27 on exam: finger less erythematous.Drainge over Pip joint. No significant tenderness along the flexor tendon or deep websapces of the hand . No extreme pain with PROM. Most of the pain is located over the dorsum of the hand and finger XR finger RT min 2V IMPRESSION: Suspected soft tissue swelling in the distal third digit of the right hand. No definite acute bony abnormality or visible foreign body IMPRESSION: Mild subcutaneous edema in the 3rd digit and dorsum of the hand suggestive of cellulitis. No evidence of an abscess. Results Labs 01/30/25 04:50 01/30/25 04:50 Labs: Abnormal lab results 01/29/25 01/30/25 01/30/25 Range/Units 22:23 04:50 07:17 WBC 17.6 H 15.8 H (4.8-10.8) X10*3/uL Plt Count 543 H 468 H (160-400) X10*3/uL Immature Gran % (Auto) 0.5 H (0.0-0.4) % Neut % (Auto) 73.8 H (45-73) % Lymph % (Auto) 14.9 L 17.1 L (20-40) % Reagan # (Auto) 1.7 H 1.5 H (0.1-1.2) X10*3/uL Abs Immat Gran (auto) 0.09 H 0.07 H (0.00-0.03) X10*3/uL Absolute Neuts (auto) 13.0 H 11.4 H (2.0-8.3) x10*3/uL Anion Gap 11 L (12-20) POC Glucose 325 H (60-115) mg/dL Random Glucose 320 H 446 H* (60-115) mg/dL Calcium 10.5 H D (8.4-10.2) mg/dL ALT 81 H (0-31) U/L Alkaline Phosphatase 227 H (39-117) U/L Total Protein 8.3 H (6.5-8.0) g/dL H & H 01/29/25 01/30/25 Range/Units 22:23 04:50 Hgb 14.9 13.1 (12.0-16.0) g/dl Hct 42.8 37.8 (37.0-47.0) % All other labs normal. Assessment and Plan (1) Abscess of finger: Status: Acute Plan Perform warm water soaks qid NPO after midnight for potential I&D right middle finger with Dr Rodriguez cont iv abx I discussed with the patient the risk benefits and alternatives to the procedure. Risk including but not limited to ongoing infection, need for re peat surgery, stiffness, pain, loss of digit and/or injury to surrounding nerves and tissues. She does express understanding and does consent to proceed if necessary. Procedures Date of Service Date of Service: 01/30/25
--- NOTE | 2025-01-30 10:27 | PC.NURSE ---
refusing dcd for finger at this moment.
--- NOTE | 2025-01-30 10:29 | PHA.MEDREC ---
Addendum entered by Maria Isabel Johnson, Dewayne 01/30/25 10:39: [facility] REVIEWED Original Note: Pharmacy Consult ? Medication Reconciliation Pharmacy has completed the medication reconciliation. Confirmed medication list with patient. Patient claims they have taken 2 Sertraline 100mg tablets by mouth daily, 1 Clonazepam 1 mg tablet by mouth twice a day as needed, and 1 Abilify 5mg tablet by mouth daily for many years, but have not been able to fill for these medications in 2 months. Patient took other medications yesterday morning (01/29).
[2025-01-30 11:40] LABS: Glucose, Whole Blood 196 mg/dL (60-115)
[2025-01-30 12:36] VITALS: PULSE 92
--- NOTE | 2025-01-30 12:40 | PM.EVENT ---
Event Note Date of Service: 01/30/25 Event Note: Chart reviewed patient examined. Agree with history and physical and assessment and plan as outlined. Appreciate Orthopedics input. Further plans as per orthopedics. Continue current antibiotic therapies Time Spent With Patient Time: Total time managing care of this patient today ____ minutes.
[2025-01-30 15:16] VITALS: BP 124/60; PULSE 105; RESP 18; TEMP 36.6; O2SAT 97
[2025-01-30 16:09] LABS: Glucose, Whole Blood 333 mg/dL (60-115)
--- NOTE | 2025-01-30 16:14 | MHC.CM.PN ---
PT REPORTS SHE LIVES WITH HER S/O WHO IS AT BEDSIDE SHE IS INDEPENDENT WITH PERSONAL CARE AND IS MEETING WITH [facility] TO [facility] [employer] SHE HAS NO DME AT THIS TIME, BUT SAYS SHE IS HOPING [facility] WILL GIVE HER SOME THINGS LIKE A TENS UNIT, PILLOWS, MATTRESS TOPPER, CANE, AND VOUCHERS FOR HYGIENE PRODUCTS SHE DECLINES A HCP SHE DOES NOT HAVE A PCP AT THIS TIME-SHE JUST MOVED BACK FROM [place]-WORKING WITH MEDIA CLERK ON GETTING ESTABLISHED IMM DELIVERED DCP: HOME VIA SHUTTLE VS PRIVATE TRANSPORT
[2025-01-30 19:26] VITALS: BP 145/78; PULSE 115; RESP 18; TEMP 36.3; O2SAT 97
--- NOTE | 2025-01-30 20:30 | PC.NURSE ---
Pt refused POC monitoring at this time, pt encouraged to allow us to check but still refused.
[2025-01-31] MEDS: 0.9 % Sodium Chloride Flush 3 ML SYRINGE IVFLUSH ×3 (00:18→12:58)
[2025-01-31 03:28] VITALS: BP 121/82; PULSE 118; RESP 16; TEMP 36.1; O2SAT 98
[2025-01-31 05:55] LABS: MANUAL DIFF FLAG NO
[2025-01-31 05:59] LABS: Hematocrit 36.9 % (37.0-47.0); Hemoglobin 12.4 g/dl (12.0-16.0); Imm Gran Abs Auto 0.04 X10*3/uL (0.00-0.03); Imm Gran Pct Auto 0.4 % (0.0-0.4); Lymphocytes Absolute Auto 2.7 X10*3/uL (1.2-4.9); Mean Corpuscular HGB Conc 33.6 g/dl (31.0-35.0); Mean Corpuscular Hemoglobin 30.0 pg (27.0-33.0); Mean Corpuscular Volume 89.3 fL (80.0-98.0); NRBC Abs Auto 0.000 X10*3/uL (0.0-0.012); NRBC Pct Auto 0.0 /100WBC (0.0-0.2); Platelet Count 356 X10*3/uL (160-400); Red Blood Count 4.13 X10*6/uL (4.20-5.50); White Blood Count 9.2 X10*3/uL (4.8-10.8)
[2025-01-31 06:09] LABS: Anion Gap 13 (12-20); Blood Urea Nitrogen 7 mg/dL (9-16); Calcium 8.9 mg/dL (8.4-10.2); Carbon Dioxide 21 mmol/L (22-29); Chloride 107 mmol/L (96-108); Creatinine Clr Calc Pharmacy 108.5; Estimated Glomerular Filt Rate > 60; Potassium 4.0 mmol/L (3.3-5.1); Sodium 137 mmol/L (135-145)
[2025-01-31 07:43] LABS: Glucose, Whole Blood 267 mg/dL (60-115)
[2025-01-31 08:00] VITALS: BP 130/82; PULSE 113; RESP 18; TEMP 36.2; O2SAT 100
[2025-01-31 08:48] LABS: Hemoglobin A1C 414.6159 umol/L; Total Hemoglobin (HGBA1C) 3224.4365 umol/L
[2025-01-31 11:23] LABS: Glucose, Whole Blood 286 mg/dL (60-115)
[2025-01-31 11:42] LABS: Cannabinoid Screen Urine Not Detected (Not Detect)
--- NOTE | 2025-01-31 11:42 | HE.PHANOTE ---
RE: VANCO DOSING Trough came back as 5.5 mg/L, renal function is improving. Increase dose to 1000 mg q8h, next trough is scheduled for 02/01/25 @1100.
--- NOTE | 2025-01-31 12:15 | HO.WOUND ---
Wound Consult: Initial 49 yr old female admitted to [facility] on [facility]/30/25- See progress notes and H&P for detailed history. Wound consult placed for right 3rd finger. Patient agreeable to assessment and photo documentation. Patient reports no injury to area but a pinpoint area that gradually worsened. Superifical I&D done in the ED, plan for possible I&D today with ortho. Right 3rd finger Etiology: Cellulitis Wound Bed: moist drainage with fluid collection Drainage / Odor: scant serous/yellow Edges: ? Joanna wound: ? No Induration, Fluctuance or Warmth noted - finger is swollen/red/purple with extention to hand. Pain: none Goals of Treatment: ? protection/moist healing with xeroform until procedure with Ortho. Recommendations: 1. Turn and Reposition every 2 hours and as needed for patient comfort. Use pillows or wedges to support off loading positions. 2. Off Load all bony prominences with use of pillows and heel boots if needed. Apply Preventative foams where needed. 3. Monitor for incontinence and moisture control, use barrier creams when needed for prevention and treatment. 4. Provide adequate and supplemental nutrition. 5. Order or Continue low air loss mattress. 6. When applicable maintain blood glucose levels per Providers order. Right 3rd Finger: cleanse with saline, pat dry, apply xeroform, cover with gauze and hold in place with stretch netting, change daily and PRN. defer to order s/p surgery. Re-consult wound care Nurse for wound deterioration or wound changes.
--- NOTE | 2025-01-31 13:07 | HO.PM.IMPN ---
Subjective Subjective Date of Service: 01/31/25 Interval History: notes improvement in swelling of R 3rd finger; afebriler Review of Systems Review of Systems: Yes all other systems are reviewed and are negative Physical Exam Vital Signs: Vital Signs: Last Vital Signs Temp 97.1 F 01/31/25 08:00 Pulse 113 H 01/31/25 08:00 Resp 18 01/31/25 08:00 BP 130/82 01/31/25 08:00 Pulse Ox 100 01/31/25 08:00 O2 Del Method Room Air 01/31/25 08:00 BMI result Body Mass Index 22.0 Gen: in no acute distress HEENT: sclera anicteric, moist mucus membranes Neck: supple Lungs: clear to auscultation bilaterally Heart: regular rate and rhythm, no murmurs Abd: soft, non-tender, non-distended Ext: R 3rd finger with erythema + swelling Skin: warm/well-perfused Neuro: alert and oriented x3, no focal findings Psych: appropriate affect Objective Data Active Medications Acetaminophen (Acetaminophen 325 Mg Tablet) 650 mg PO Q6H PRN PRN Reason: Pain, Mild 1-3,fever,headache Calcium Carbonate (Calcium Carbonate 750 Mg Tab.Chew) 750 mg PO Q4H PRN PRN Reason: Heartburn Clonazepam (Clonazepam 1 Mg Tablet) 1 mg PO TID PRN PRN Reason: Anxiety Last Admin: 01/31/25 08:05 Dose: 1 mg Documented By: ANJELICA Dextrose (Dextrose 50 % 25 Gm/50 Ml Syringe) 25 gm IVPUSH Q15M PRN; Protocol PRN Reason: per Hypoglycemia Standing Ord. Enoxaparin Sodium (Enoxaparin Sodium 40 Mg/0.4 Ml Syringe) 40 mg SUBCUT Q24H [facility] Last Admin: 01/31/25 05:30 Dose: 40 mg Documented By: NANDA Glucose (Glucose Gel 15 Gm Gel..Gram.) 15 gm PO Q15M PRN; Protocol PRN Reason: per Hypoglycemia Standing Ord. Piperacillin Sod/Tazobactam (Sod 3.375 gm/ Sodium Chloride) 50 mls @ 100 mls/hr IV Q6H [facility] Last Infusion: 01/31/25 11:06 Dose: Infused Documented By: ANJELICA Vancomycin HCl 1,000 mg/ (Sodium Chloride) 270 mls @ 270 mls/hr IV Q8H [facility] Last Admin: 01/31/25 12:57 Dose: 270 mls/hr Documented By: ANJELICA Insulin Glargine (Insulin Glargine,Hum.Rec.Anlog 100 Unit/Ml 10 Ml Vial) 15 unit SUBCUT Q12H [facility] Last Admin: 01/31/25 09:21 Dose: Not Given Documented By: ANJELICA Non-Admin Reason: pt npo Insulin Human Lispro (Insulin Lispro 100 Unit/Ml 3 Ml Vial) 0 unit SUBCUT QIDACHS [facility]; Protocol Last Admin: 01/31/25 11:15 Dose: Not Given Documented By: ANJELICA Non-Admin Reason: npo Magnesium Hydroxide (Milk Of Magnesia 30 Ml Oral.Susp) 30 ml PO DAILY PRN PRN Reason: Constipation Melatonin (Melatonin 3 Mg Tablet) 6 mg PO BEDTIME PRN PRN Reason: Insomnia Metformin HCl (Metformin Hcl 500 Mg Tablet) 500 mg PO BIDWM [facility] On Hold: 01/31/25 11:28 Last Admin: 01/31/25 08:11 Dose: Not Given Documented By: ANJELICA Non-Admin Reason: Patient Refused Nicotine Polacrilex (Nicotine Polacrilex 2 Mg Gum) 2 mg BUCCAL Q1H PRN PRN Reason: Nicotine Cravings Last Admin: 01/30/25 13:26 Dose: 2 mg Documented By: SABRINA Ondansetron HCl (Ondansetron Hcl 4 Mg/2 Ml Vial) 4 mg IVPUSH Q8H PRN PRN Reason: Nausea and Vomiting Oxycodone HCl (Oxycodone Hcl Immed Release 5 Mg Tablet) 5 mg PO Q6H PRN PRN Reason: Pain, Severe (Pain Scale 7-10) Pharmacy Consult (Consult Rx Vancomycin Dosing) 1 each MISCELLANE DAILY PRN PRN Reason: Consult order Sodium Chloride (0.9 % Sodium Chloride Flush 3 Ml Syringe) [facility] Last Admin: 01/31/25 12:58 Dose: 3 ml Documented By: ANJELICA Tramadol HCl (Tramadol Hcl 50 Mg Tablet) 50 mg PO Q6H PRN PRN Reason: Pain, Moderate(Pain Scale 4-6) Labs 01/31/25 05:25 01/31/25 05:25 Labs: Laboratory Results - last 24 hr 01/30/25 01/31/25 01/31/25 16:02 05:25 07:39 MCV 89.3 MCH 30.0 MCHC 33.6 RDW 12.7 Plt Count 356 MPV 10.6 Immature Gran % (Auto) 0.4 Neut % (Auto) 57.6 Lymph % (Auto) 29.7 [place] % (Auto) 9.6 Eos % (Auto) 2.2 Baso % (Auto) 0.5 Lymph # (Auto) 2.7 [place] # (Auto) 0.9 Eos # (Auto) 0.2 Baso # (Auto) 0.1 Abs Immat Gran (auto) 0.04 H Absolute Neuts (auto) 5.3 Absolute Nucleated RBC 0.000 Nucleated RBC % (auto) 0.0 Anion Gap 13 Estim Creat Clear Calc 108.5 Estimated GFR > 60 POC Glucose 333 H 267 H Random Glucose 314 H Estimat Average Glucose 352 Hemoglobin A1c % 13.9 H Calcium 8.9 C-Reactive Protein 6.95 H Random Vancomycin Urine Opiates Screen Ur Buprenorphine Scrn Ur Oxycodone Screen Urine Methadone Screen Urine Fentanyl Screen Ur Barbiturates Screen Ur Phencyclidine Scrn Ur Amphetamines Screen U Benzodiazepines Scrn Urine Cocaine Screen U Marijuana (THC) Screen 01/31/25 01/31/25 01/31/25 11:05 11:10 11:11 MCV MCH MCHC RDW Plt Count MPV Immature Gran % (Auto) Neut % (Auto) Lymph % (Auto) [place] % (Auto) Eos % (Auto) Baso % (Auto) Lymph # (Auto) [place] # (Auto) Eos # (Auto) Baso # (Auto) Abs Immat Gran (auto) Absolute Neuts (auto) Absolute Nucleated RBC Nucleated RBC % (auto) Anion Gap Estim Creat Clear Calc Estimated GFR POC Glucose 286 H Random Glucose Estimat Average Glucose Hemoglobin A1c % Calcium C-Reactive Protein Random Vancomycin 5.5 L Urine Opiates Screen POSITIVE H Ur Buprenorphine Scrn Not Detected Ur Oxycodone Screen Not Detected Urine Methadone Screen Not Detected Urine Fentanyl Screen POSITIVE H Ur Barbiturates Screen Not Detected Ur Phencyclidine Scrn Not Detected Ur Amphetamines Screen POSITIVE H U Benzodiazepines Scrn Not Detected Urine Cocaine Screen Not Detected U Marijuana (THC) Screen Not Detected Microbiology Microbiology Results: Microbiology 01/29/25 22:23 Blood Culture - Preliminary Blood - Venous No growth after 24 hours. 01/29/25 22:23 Blood Culture - Preliminary Blood - Venous No growth after 24 hours. Assessment and Plan (1) Cellulitis: Status: Acute Assessment and Plan: d2, 49yo F with DM2 presenting with R middle finger swelling/pain, found to have sepsis due to cellulitis and superficial abscess drained in ED sepsis due to R 3rd finger infection - 01/30- vanco + piperacillin-tazobactam, follow BCx, NPO for I+D today per Ortho consultation DM2, uncontrolled with A1c 13.9 - basal-bolus insulin polysubstance abuse - Addiction Medicine consultation, screen HBV/HCV/HIV tobacco abuse - NRT VTE ppx: enoxaparin dispo: eventual home In my clinical judgment, the patient requires continued inpatient hospitalization for the following reasons: IV ABX, operative intervention Total time managing care of this patient today: 35 minutes. Quality Stroke Does the patient have a stroke diagnosis?: No VTE Prior VTE?: No VTE Risk Level:: Medical - moderate - high VTE Device Contraindication: Treatment Not Indicated VTE Drug Contraindication: N/A - Med Ordered
--- NOTE | 2025-01-31 13:25 | HO.ANESPROP2 ---
HPI - Anesthesia Eval Consult details Narrative: 49 yr old female for right middle finger I&D Polysubstance abuse: tox screen was positive for fentanyl, opioids, amphetamines on admission Type 2 DM: recent BG readings 200-400 PMFSH Active Problems Active Problems: All Active Problems Sepsis (Acute) Hyperglycemia due to type 2 diabetes mellitus (Acute) Tight ring on finger (Acute) Cellulitis (Acute) Abscess of finger (Acute) Diabetes (Acute) Past Medical History Medical History Polysubstance abuse Diabetes Type 2 diabetes mellitus Functional capacity: independent ambulation Social History Social History Household Members: Significant Other Housing: Apartment Do you presently have visiting nurse or other home services: Yes Patient Tobacco Use Status: Current everyday Tobacco user Smoked in Last 30 Days: Yes Patient Interested in Nicotine Replacement: Yes Use of substances other than those prescribed or required for medical reasons: No Currently Displaying Signs/Symptoms of Drug Intoxication Withdrawal: No Do you feel safe in your current relationship?: Yes Advance Directives: No Advance Directives Information Provided: No Do you have a plan to hurt others: No Plan Nutrition Risks: No Nutritional Risk Patient : No : No Poor oral hygiene: No service: No Meds Allergies Allergy/AdvReac Type Severity Reaction Status Date / Time sulfamethoxazole (From Allergy Severe HIVES Verified 01/29/25 22:02 BACTRIM) trimethoprim (From BACTRIM) Allergy Severe HIVES Verified 01/29/25 22:02 bee pollen (BEE STINGS) Allergy Unknown UNKNOWN Verified 01/29/25 22:02 NSAIDS (Non-Steroidal Allergy Unknown BLEEDING Verified 01/29/25 22:02 Anti-Inflamma (NSAIDS ULCERS (NON-STEROIDAL ANTI-INFLAMMA) Active Medications: Current Medications Acetaminophen (Acetaminophen 325 Mg Tablet) 650 mg PO Q6H PRN PRN Reason: Pain, Mild 1-3,fever,headache Calcium Carbonate (Calcium Carbonate 750 Mg Tab.Chew) 750 mg PO Q4H PRN PRN Reason: Heartburn Clonazepam (Clonazepam 1 Mg Tablet) 1 mg PO TID PRN PRN Reason: Anxiety Last Admin: 01/31/25 08:05 Dose: 1 mg Dextrose (Dextrose 50 % 25 Gm/50 Ml Syringe) 25 gm IVPUSH Q15M PRN; Protocol PRN Reason: per Hypoglycemia Standing Ord. Enoxaparin Sodium (Enoxaparin Sodium 40 Mg/0.4 Ml Syringe) 40 mg SUBCUT Q24H [facility] Last Admin: 01/31/25 05:30 Dose: 40 mg Glucose (Glucose Gel 15 Gm Gel..Gram.) 15 gm PO Q15M PRN; Protocol PRN Reason: per Hypoglycemia Standing Ord. Piperacillin Sod/Tazobactam (Sod 3.375 gm/ Sodium Chloride) 50 mls @ 100 mls/hr IV Q6H [facility] Last Infusion: 01/31/25 11:06 Dose: Infused Vancomycin HCl 1,000 mg/ (Sodium Chloride) 270 mls @ 270 mls/hr IV Q8H [facility] Last Admin: 01/31/25 12:57 Dose: 270 mls/hr Insulin Glargine (Insulin Glargine,Hum.Rec.Anlog 100 Unit/Ml 10 Ml Vial) 15 unit SUBCUT Q12H [facility] Last Admin: 01/31/25 09:21 Dose: Not Given Insulin Human Lispro (Insulin Lispro 100 Unit/Ml 3 Ml Vial) 0 unit SUBCUT QIDACHS [facility]; Protocol Last Admin: 01/31/25 11:15 Dose: Not Given Magnesium Hydroxide (Milk Of Magnesia 30 Ml Oral.Susp) 30 ml PO DAILY PRN PRN Reason: Constipation Melatonin (Melatonin 3 Mg Tablet) 6 mg PO BEDTIME PRN PRN Reason: Insomnia Metformin HCl (Metformin Hcl 500 Mg Tablet) 500 mg PO BIDWM [facility] On Hold: 01/31/25 11:28 Last Admin: 01/31/25 08:11 Dose: Not Given Nicotine Polacrilex (Nicotine Polacrilex 2 Mg Gum) 2 mg BUCCAL Q1H PRN PRN Reason: Nicotine Cravings Last Admin: 01/30/25 13:26 Dose: 2 mg Ondansetron HCl (Ondansetron Hcl 4 Mg/2 Ml Vial) 4 mg IVPUSH Q8H PRN PRN Reason: Nausea and Vomiting Oxycodone HCl (Oxycodone Hcl Immed Release 5 Mg Tablet) 5 mg PO Q6H PRN PRN Reason: Pain, Severe (Pain Scale 7-10) Pharmacy Consult (Consult Rx Vancomycin Dosing) 1 each MISCELLANE DAILY PRN PRN Reason: Consult order Sodium Chloride (0.9 % Sodium Chloride Flush 3 Ml Syringe) 3 ml IVFLUSH QSHIFT [facility] Last Admin: 01/31/25 12:58 Dose: 3 ml Tramadol HCl (Tramadol Hcl 50 Mg Tablet) 50 mg PO Q6H PRN PRN Reason: Pain, Moderate(Pain Scale 4-6) Home Medications ?Medication ?Instructions ?Recorded ?Confirmed ?Last Taken ?Type [id number] 800 mcg-alpha 1 cap PO DAILY 01/30/25 01/30/25 01/29/25 History alipoic acid 150 mg-co Q10 50 mg capsule (Diabetic Vitamin) omeprazole 20 mg tablet,delayed 40 mg PO DAILY@0630 01/30/25 01/30/25 01/29/25 History release Exam Height,Weight and Vital Signs: Height 5 ft Weight 51.1 kg Last Vital Signs Temp 97.1 F 01/31/25 08:00 Pulse 113 H 01/31/25 08:00 Resp 18 01/31/25 08:00 BP 130/82 01/31/25 08:00 Pulse Ox 100 01/31/25 08:00 O2 Del Method Room Air 01/31/25 08:00 Pertinent Lab Results Pertinent Lab Results: Laboratory Tests 01/29/25 01/30/25 01/30/25 22:23 04:50 07:17 WBC 17.6 H 15.8 H RBC 4.87 4.34 Hgb 14.9 13.1 Hct 42.8 37.8 MCV 87.9 87.1 MCH 30.6 30.2 MCHC 34.8 34.7 RDW 12.9 12.8 Plt Count 543 H 468 H MPV 9.5 9.7 Immature Gran % (Auto) 0.5 H 0.4 Neut % (Auto) 73.8 H 72.0 Lymph % (Auto) 14.9 L 17.1 L Nolan % (Auto) 9.9 9.3 Eos % (Auto) 0.6 0.9 Baso % (Auto) 0.3 0.3 Lymph # (Auto) 2.6 2.7 Nolan # (Auto) 1.7 H 1.5 H Eos # (Auto) 0.1 0.2 Baso # (Auto) 0.1 0.0 Abs Immat Gran (auto) 0.09 H 0.07 H Absolute Neuts (auto) 13.0 H 11.4 H Absolute Nucleated RBC 0.000 0.000 Nucleated RBC % (auto) 0.0 0.0 Smear Tech's Comments VERIFIED Sodium 137 135 Potassium 3.7 4.0 Chloride 100 106 Carbon Dioxide 26 22 Anion Gap 15 11 L BUN 11 9 Creatinine 0.54 0.55 Estim Creat Clear Calc 92.5 90.8 Estimated GFR > 60 > 60 POC Glucose 325 H Random Glucose 320 H 446 H* Estimat Average Glucose Hemoglobin A1c % Lactic Acid 1.2 1.3 Calcium 10.5 H D 8.7 D Total Bilirubin 0.6 Direct Bilirubin 0.3 AST 25 ALT 81 H Alkaline Phosphatase 227 H C-Reactive Protein Total Protein 8.3 H Albumin 4.8 Random Vancomycin Urine Opiates Screen Ur Buprenorphine Scrn Ur Oxycodone Screen Urine Methadone Screen Urine Fentanyl Screen Ur Barbiturates Screen Ur Phencyclidine Scrn Ur Amphetamines Screen U Benzodiazepines Scrn Urine Cocaine Screen U Marijuana (THC) Screen 01/30/25 01/30/25 01/31/25 11:19 16:02 05:25 WBC 9.2 RBC 4.13 L Hgb 12.4 Hct 36.9 L MCV 89.3 MCH 30.0 MCHC 33.6 RDW 12.7 Plt Count 356 MPV 10.6 Immature Gran % (Auto) 0.4 Neut % (Auto) 57.6 Lymph % (Auto) 29.7 Nolan % (Auto) 9.6 Eos % (Auto) 2.2 Baso % (Auto) 0.5 Lymph # (Auto) 2.7 Nolan # (Auto) 0.9 Eos # (Auto) 0.2 Baso # (Auto) 0.1 Abs Immat Gran (auto) 0.04 H Absolute Neuts (auto) 5.3 Absolute Nucleated RBC 0.000 Nucleated RBC % (auto) 0.0 Smear Tech's Comments Sodium 137 Potassium 4.0 Chloride 107 Carbon Dioxide 21 L Anion Gap 13 BUN 7 L Creatinine 0.46 L Estim Creat Clear Calc 108.5 Estimated GFR > 60 POC Glucose 196 H 333 H Random Glucose 314 H Estimat Average Glucose 352 Hemoglobin A1c % 13.9 H Lactic Acid Calcium 8.9 Total Bilirubin Direct Bilirubin AST ALT Alkaline Phosphatase C-Reactive Protein 6.95 H Total Protein Albumin Random Vancomycin Urine Opiates Screen Ur Buprenorphine Scrn Ur Oxycodone Screen Urine Methadone Screen Urine Fentanyl Screen Ur Barbiturates Screen Ur Phencyclidine Scrn Ur Amphetamines Screen U Benzodiazepines Scrn Urine Cocaine Screen U Marijuana (THC) Screen 01/31/25 01/31/25 01/31/25 07:39 11:05 11:10 WBC RBC Hgb Hct MCV MCH MCHC RDW Plt Count MPV Immature Gran % (Auto) Neut % (Auto) Lymph % (Auto) Nolan % (Auto) Eos % (Auto) Baso % (Auto) Lymph # (Auto) Nolan # (Auto) Eos # (Auto) Baso # (Auto) Abs Immat Gran (auto) Absolute Neuts (auto) Absolute Nucleated RBC Nucleated RBC % (auto) Smear Tech's Comments Sodium Potassium Chloride Carbon Dioxide Anion Gap BUN Creatinine Estim Creat Clear Calc Estimated GFR POC Glucose 267 H Random Glucose Estimat Average Glucose Hemoglobin A1c % Lactic Acid Calcium Total Bilirubin Direct Bilirubin AST ALT Alkaline Phosphatase C-Reactive Protein Total Protein Albumin Random Vancomycin 5.5 L Urine Opiates Screen POSITIVE H Ur Buprenorphine Scrn Not Detected Ur Oxycodone Screen Not Detected Urine Methadone Screen Not Detected Urine Fentanyl Screen POSITIVE H Ur Barbiturates Screen Not Detected Ur Phencyclidine Scrn Not Detected Ur Amphetamines Screen POSITIVE H U Benzodiazepines Scrn Not Detected Urine Cocaine Screen Not Detected U Marijuana (THC) Screen Not Detected 01/31/25 11:11 WBC RBC Hgb Hct MCV MCH MCHC RDW Plt Count MPV Immature Gran % (Auto) Neut % (Auto) Lymph % (Auto) Nolan % (Auto) Eos % (Auto) Baso % (Auto) Lymph # (Auto) Nolan # (Auto) Eos # (Auto) Baso # (Auto) Abs Immat Gran (auto) Absolute Neuts (auto) Absolute Nucleated RBC Nucleated RBC % (auto) Smear Tech's Comments Sodium Potassium Chloride Carbon Dioxide Anion Gap BUN Creatinine Estim Creat Clear Calc Estimated GFR POC Glucose 286 H Random Glucose Estimat Average Glucose Hemoglobin A1c % Lactic Acid Calcium Total Bilirubin Direct Bilirubin AST ALT Alkaline Phosphatase C-Reactive Protein Total Protein Albumin Random Vancomycin Urine Opiates Screen Ur Buprenorphine Scrn Ur Oxycodone Screen Urine Methadone Screen Urine Fentanyl Screen Ur Barbiturates Screen Ur Phencyclidine Scrn Ur Amphetamines Screen U Benzodiazepines Scrn Urine Cocaine Screen U Marijuana (THC) Screen
--- NOTE | 2025-01-31 14:14 | PC.NURSE ---
Left arm AC peripheral IV removed .
--- NOTE | 2025-01-31 14:20 | PC.NURSE ---
Pt was found to have a large general maintenance engineer that resembled a torch on the bedside table. This RN asked patient if it is a light and patient stated yes. This RN educated patient on hospital policy on how lighters are not allowed to be used in patient rooms and for safety it can be placed in a safe. Pt became agitated and aggressive and stated, I'm not giving it to you i will place it in my purse. This RN relayed the information to the charge nurse. the charge nurse spoke to the patient and patient at this time decided to leave AMA. notified and spoke with the patient at bedside. Pt adamant about leaving AMA. IV line removed and AMA form signed. incident report filed.
--- NOTE | 2025-01-31 14:32 | P.DS_ITS ---
DS: Providers Provider Date of Service: 01/31/25 Date of admission: 01/30/25 04:14 Date of discharge: 01/31/25 Primary care physician: Unknown Physician Consults: 01/30/25 04:17 Consult to Orthopedics Routine Consulting Provider: [facility] Reason for consultation: Hand cellulitis abscess Has provider been notified: No 01/30/25 09:43 Consult to Wound Care Routine Reason for consultation: right middle finger wound. 01/31/25 13:08 Addiction Medicine Provider Routine Consulting Provider: Addiction Covering Reason for consultation: amphematines + fentanyl DS: Diagnosis Discharge Diagnosis (1) Cellulitis: Status: Acute (2) Hyperglycemia due to type 2 diabetes mellitus: Status: Acute (3) Abscess of finger: Status: Acute (4) Sepsis: Status: Acute (5) Left against medical advice: Status: Acute DS: Summary Hospital Course Hospital Course: From the history and physical by the admitting hospitalist, SHANNON Trimble, 01/30/25: Patient is a 49-year-old female with a past medical history significant for new diagnosis of type 2 diabetes, who presented to the ED due to right middle finger swelling and pain for the past few days. The patient reports the swelling started on Friday and has progressively been worsening, she reported to the ED when she was unable to get her ring off and was having significant pain. She denies any injury or trauma to the finger is unsure why this began. Patient reports that she was recently diagnosed with diabetes in the started on sliding scale insulin, Lantus and metformin however she is no longer taking anything as she is switching PCPs. She is unsure for Lantus dose but reports she was taking the sliding scale and metformin. She denies any systemic symptoms including fever, chills, nausea or vomiting. In the ED the patient's ring was cut off, I and D of superficial abscess on the right middle finger. The patient reports that her pain has improved but is still present. 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 49yo F with DM2 presenting with R middle finger swelling/pain, found to have sepsis due to cellulitis and superficial abscess drained in ED. Hospital course by problem: sepsis due to R 3rd finger infection - 01/30- vanco + piperacillin-tazobactam, follow BCx, NPO for I+D today per Ortho consultation; unfortunately, the patient signed out AGAINST MEDICAL ADVICE desp ite counseling on the risks of doing so. She was advised to return to a hospital [facility] to get the infection properly managed but in the meanwhile was prescribed doxycycline and Augmentin for antibiotic coverage. DM2, uncontrolled with A1c 13.9 - prescribed metformin and Lantus polysubstance abuse - Addiction Medicine consultation pending when she signed out AMA Time Attestation Discharge Coordination Time (in mins): 45 Quality: Safe Use of Opioids Does Pt have an Active Cancer Diagnosis on the Problem List?: No Quality: Stroke Does the patient have a stroke diagnosis?: No Physical Exam Vital Signs: Vital Signs: Last Vital Signs Temp 97.1 F 01/31/25 08:00 Pulse 113 H 01/31/25 08:00 Resp 18 01/31/25 08:00 BP 130/82 01/31/25 08:00 Pulse Ox 100 01/31/25 08:00 O2 Del Method Room Air 01/31/25 08:00 BMI result Body Mass Index 22.0 Gen: in no acute distress HEENT: sclera anicteric, moist mucus membranes Neck: supple Lungs: clear to auscultation bilaterally Heart: regular rate and rhythm, no murmurs Abd: soft, non-tender, non-distended Ext: R 3rd finger with erythema + swelling Skin: warm/well-perfused Neuro: alert and oriented x3, no focal findings Psych: appropriate affect DS: Data Data Completed and Pending Completed studies during hospitalization [Text1]: Laboratory Results WBC 9.2 X10*3/uL (4.8-10.8) 01/31/25 05:25 RBC 4.13 X10*6/uL (4.20-5.50) L 01/31/25 05:25 Hgb 12.4 g/dl (12.0-16.0) 01/31/25 05:25 Hct 36.9 % (37.0-47.0) L 01/31/25 05:25 MCV 89.3 fL (80.0-98.0) 01/31/25 05:25 MCH 30.0 pg (27.0-33.0) 01/31/25 05:25 MCHC 33.6 g/dl (31.0-35.0) 01/31/25 05:25 RDW 12.7 % (11.0-16.0) 01/31/25 05:25 Plt Count 356 X10*3/uL (160-400) 01/31/25 05:25 MPV 10.6 fL (9.4-12.3) 01/31/25 05:25 Immature Gran % (Auto) 0.4 % (0.0-0.4) 01/31/25 05:25 Neut % (Auto) 57.6 % (45-73) 01/31/25 05:25 Lymph % (Auto) 29.7 % (20-40) 01/31/25 05:25 Maury % (Auto) 9.6 % (2-11) 01/31/25 05:25 Eos % (Auto) 2.2 % (0-4) 01/31/25 05:25 Baso % (Auto) 0.5 % (0-2) 01/31/25 05:25 Lymph # (Auto) 2.7 X10*3/uL (1.2-4.9) 01/31/25 05:25 Maury # (Auto) 0.9 X10*3/uL (0.1-1.2) 01/31/25 05:25 Eos # (Auto) 0.2 X10*3/uL (0.0-0.4) 01/31/25 05:25 Baso # (Auto) 0.1 X10*3/uL (0.0-0.2) 01/31/25 05:25 Abs Immat Gran (auto) 0.04 X10*3/uL (0.00-0.03) H 01/31/25 05:25 Absolute Neuts (auto) 5.3 x10*3/uL (2.0-8.3) 01/31/25 05:25 Absolute Nucleated RBC 0.000 X10*3/uL (0.0-0.012) 01/31/25 05:25 Nucleated RBC % (auto) 0.0 /100WBC (0.0-0.2) 01/31/25 05:25 Smear Tech's Comments VERIFIED 01/29/25 22:23 Sodium 137 mmol/L (135-145) 01/31/25 05:25 Potassium 4.0 mmol/L (3.3-5.1) 01/31/25 05:25 Chloride 107 mmol/L (96-108) 01/31/25 05:25 Carbon Dioxide 21 mmol/L (22-29) L 01/31/25 05:25 Anion Gap 13 (12-20) 01/31/25 05:25 BUN 7 mg/dL (9-16) L 01/31/25 05:25 Creatinine 0.46 mg/dL (0.5-1.4) L 01/31/25 05:25 Estim Creat Clear Calc 108.5 01/31/25 05:25 Estimated GFR > 60 01/31/25 05:25 POC Glucose 286 mg/dL (60-115) H 01/31/25 11:11 Random Glucose 314 mg/dL (60-115) H 01/31/25 05:25 Estimat Average Glucose 352 mg/dL 01/31/25 05:25 Hemoglobin A1c % 13.9 % (<6.0) H 01/31/25 05:25 Lactic Acid 1.3 mmol/L (0.5-2.0) 01/30/25 04:50 Calcium 8.9 mg/dL (8.4-10.2) 01/31/25 05:25 Total Bilirubin 0.6 mg/dL (0.0-1.0) 01/29/25 22:23 Direct Bilirubin 0.3 mg/dL (0.0-0.5) 01/29/25 22:23 AST 25 U/L (5-31) 01/29/25 22:23 ALT 81 U/L (0-31) H 01/29/25 22:23 Alkaline Phosphatase 227 U/L (39-117) H 01/29/25 22:23 C-Reactive Protein 6.95 mg/dL (< or = 0.50) H 01/31/25 05:25 Total Protein 8.3 g/dL (6.5-8.0) H 01/29/25 22:23 Albumin 4.8 g/dL (3.5-5.0) 01/29/25 22:23 Random Vancomycin 5.5 mcg/mL (15-20) L 01/31/25 11:05 Urine Opiates Screen POSITIVE (Not Detect) H 01/31/25 11:10 Ur Buprenorphine Scrn Not Detected ng/mL (Not Detect) 01/31/25 11:10 Ur Oxycodone Screen Not Detected ng/mL (Not Detect) 01/31/25 11:10 Urine Methadone Screen Not Detected ng/mL (Not Detect) 01/31/25 11:10 Urine Fentanyl Screen POSITIVE (Not Detect) H 01/31/25 11:10 Ur Barbiturates Screen Not Detected (Not Detect) 01/31/25 11:10 Ur Phencyclidine Scrn Not Detected (Not Detect) 01/31/25 11:10 Ur Amphetamines Screen POSITIVE (Not Detect) H 01/31/25 11:10 U Benzodiazepines Scrn Not Detected (Not Detect) 01/31/25 11:10 Urine Cocaine Screen Not Detected (Not Detect) 01/31/25 11:10 U Marijuana (THC) Screen Not Detected (Not Detect) 01/31/25 11:10 Discharge Plan Discharge Patient Disposition: Left Against Medical Advice Discharge Diagnosis: left against medical advice finger infection uncontrolled diabetes substance abuse Referrals: Physician,Unknown J [Primary Care Provider, Medical] - 1 Week Discharge Medications: New metformin 500 mg Tablet 500 mg PO BIDWM Qty: 60 0RF doxycycline monohydrate 100 mg tablet 100 mg PO BID Qty: 14 0RF amoxicillin-pot clavulanate 875-125 mg tablet 1 tab PO BID Qty: 14 0RF insulin glargine [Lantus Solostar U-100 Insulin] 100 unit/mL (3 mL) insulin pen 15 unit subcut QAM Qty: 3 0RF Continued (DME) pen needle, diabetic [Pen Needle] 32 gauge x 5/32 needle See Rx Instructions .Route Qty: 100 1RF Rx Instructions: As directed (DME) lancet-gluc [id number] Kit See Rx Instructions .Route Qty: 1 1RF Rx Instructions: As directed (DME) Accu-Chek Shwetha Plus test strp Strip See Rx Instructions .Route Qty: 100 1RF Rx Instructions: As directed (DME) blood-glucose meter [Accu-Chek Guide Glucose Meter] Misc See Rx Instructions .Route Qty: 1 0RF Rx Instructions: As directed omeprazole 20 mg Tablet,Delayed Release (Dr/Ec) 40 mg PO DAILY@0630 Diabetic Vitamin 800-150-50 mcg-mg-mg Capsule 1 cap PO DAILY Discharge Orders: Discharge Order (Routine); Ordered 01/31/25 Ordered By: Maral Johnson Print Language: Djib[place]ian Care Plan Goals: appropriate medical care Health Concerns: left against medical advice finger infection uncontrolled diabetes substance abuse Plan of Treatment: return to a hospital as soon as possible to get definitive treatment of finger infection; in meanwhile, take doxycycline monohydrate 100 mg twice daily PLUS amoxicillin-clavulanate 875-125 mg twice daily take Lantus 15 units daily plus metformin 500 mg twice daily avoid substance abuse Assessment: See Discharge Summary.
--- NOTE | 2025-01-31 14:44 | PC.NURSE ---
This RN went to tell the patient that her medication from pharmacy would be done in 20 minutes, when the RN went to the room, the patient already had left.
--- NOTE | 2025-01-31 15:12 | MHC.CM.PN ---
CM attempted to meet with patient x2 earlier in the day. Patient on the phone both times & requested that CM come back. Patient has now left AMA.
[2025-01-31 15:20] LABS: UPreg QC Valid YES
--- NOTE | 2025-01-31 15:20 | PC.NURSE ---
Pt was instructed that [place] [facility] [place] . Pt said she would pick them up on her way out . Pt was leaving AMA. Lei Read from out pt pharmacy called pt to let her know meds where ready when she didn't stop by but was unable to get through . 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
--- NOTE | 2025-01-31 15:55 | PC.NURSE ---
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
== END 2025-01-31 14:51 | disposition left against medical advice (07) | DRG 872 ==
LOC: HO.ED 01-30 00:14 → HO.EDOVER 01-30 04:17 → HO.S3 01-30 07:58
PROVIDERS: Hospitalist; Nurse Practitioner; Physician Assistant; Admitting Provider Physician Assistant; Emergency Provider Emergency Medicine; Visit Provider Family Medicine
DX: A41.9 Sepsis, unspecified organism (principal); L02.511 Cutaneous abscess of right hand; E11.65 Type 2 diabetes mellitus with hyperglycemia; L03.011 Cellulitis of right finger; F17.210 Nicotine dependence, cigarettes, uncomplicated; Z71.6 Tobacco abuse counseling; Z79.4 Long term (current) use of insulin; Z79.84 Long term (current) use of oral hypoglycemic drugs; Z79.899 Other long term (current) drug therapy
CPT/HCPCS: 36415; 73201; 80048; 80076; 80202; 80307; 81025; 82947; 83036; 83605; 85025; 86140; 87040; 93005; 99285; J1650; J2543; J3374; Q9967

== ENCOUNTER → 2025-01-29 22:11 | Outpatient (BNV) | payer OTHER, SELFPAY | PROVIDERS: Admitting Provider Physician Assistant; Emergency Provider Emergency Medicine; Visit Provider Internal Medicine Cardiovascular Disease | DX: I25.2 Old myocardial infarction (principal); R00.0 Tachycardia, unspecified | CPT/HCPCS: 93010 ==

== ENCOUNTER → 2025-01-30 00:06 | Outpatient (BNV) | payer OTHER, SELFPAY | PROVIDERS: Emergency Provider Emergency Medicine; Visit Provider Radiology Diagnostic Radiology | DX: L03.011 Cellulitis of right finger (principal) | CPT/HCPCS: 73201 ==

== ENCOUNTER → 2025-01-30 04:10 | Outpatient (BNV) | payer OTHER, SELFPAY | PROVIDERS: Admitting Provider Physician Assistant; Emergency Provider Emergency Medicine; Visit Provider Internal Medicine Cardiovascular Disease | DX: I25.2 Old myocardial infarction (principal); R00.0 Tachycardia, unspecified | CPT/HCPCS: 93010 ==

== ENCOUNTER → 2025-01-30 04:14 | Outpatient (BNV) | payer OTHER, SELFPAY | PROVIDERS: Admitting Provider Physician Assistant; Emergency Provider Emergency Medicine; Visit Provider Hospitalist | DX: A41.9 Sepsis, unspecified organism (principal); L02.519 Cutaneous abscess of unspecified hand; L03.90 Cellulitis, unspecified; S60.449A External constriction of unspecified finger, initial encounter; W49.04XA Ring or other jewelry causing external constriction, initial encounter | CPT/HCPCS: 99223; 99499 ==

== ENCOUNTER → 2025-01-30 04:14 | Outpatient (BNV) | payer OTHER, SELFPAY | PROVIDERS: Admitting Provider Physician Assistant; Emergency Provider Emergency Medicine; Visit Provider Physician Assistant | DX: L02.511 Cutaneous abscess of right hand (principal) | CPT/HCPCS: 99223 ==